=== PATIENT | female | born 1950 | race Caucasian/White ===

== ENCOUNTER 2017-07-18 23:14 | Emergency (ER) | payer OTHER, MEDICARE ==
--- OUTSIDE RECORDS SUMMARY | 2017-07-18 23:17 | XMS REPORT | Clinical Summary ---
:1950 Author Organization [facility] Address [address] [place] [address] Care Team Providers Name Role Phone Roselia Hart MD Primary Care Provider Allergies Active Allergy Reactions Severity Noted Date Comments No Known Drug Allergies 05/07/2016 Current Medications Prescription Sig. Disp. Refills Start End Status Date Date estradiol (ESTRACE) 1 Taek 1 3 Active MG tablet tablet=1 mg in 6 the morning. pqziqrkpflax-wubg-pcssk Take 1 tablet Active acid 18-400 mg-mcg by mouth every tablet morning. cholecalciferol, Take 2,000 Active vitamin D3, (VITAMIN Units by mouth D3) 2,000 unit capsule every morning. capsule buPROPion XL Take 150 mg by 2 Active (WELLBUTRIN XL) 150 MG mouth every 7 24 hr tablet morning. Patient takes a total dose of 450 mg of wellbutrin XL=1 tab of 150 mg + 1 tab of 300 mg methylphenidate Take 10 mg by Active (RITALIN) 10 MG tablet mouth 2 (two) times a day. hydroCHLOROthiazide Take 1 tablet 30 tablet 11 Active (HYDRODIURIL) 25 MG (25 mg total) 7 018 tablet by mouth daily. DULoxetine (CYMBALTA) Take 30 mg by Active 30 MG capsule mouth 2 (two) times a day. gabapentin (NEURONTIN) Take 300 mg by 1 Active 300 mg capsule mouth daily as 7 needed. amitriptyline (ELAVIL) Take 1 tablet Active 25 MG tablet (25 mg total) 8 by mouth nightly as needed. metFORMIN (GLUCOPHAGE) TAKE 1 TABLET 90 tablet 0 Active 500 mg tablet BY MOUTH EVERY 8 MORNING WITH BREAKFAST clopidogrel (PLAVIX) 75 Take 75 mg by 6 Active mg tablet mouth daily. 8 aspirin (ECOTRIN) 81 MG Take 81 mg by Active enteric coated tablet mouth daily. acetaminophen-codeine Take 1-2 40 tablet 0 Active (TYLENOL WITH CODEINE tablets by 8 018 #3) 300-30 mg per mouth every 6 tablet (six) hours as needed for moderate pain for up to 10 days. metFORMIN (GLUCOPHAGE) Take 1 2 Discontinued 500 mg tablet zvvelp=920 mg 6 017 by mouth with breakfast. amitriptyline (ELAVIL) take 1 3 Discontinued 25 MG tablet tablet=25 mg 6 017 by mouth at bedtime. escitalopram (LEXAPRO) TK 1 T PO QD 0 Discontinued 20 MG tablet 6 017 gabapentin (NEURONTIN) Take 1 0 Discontinued 300 mg capsule urxwbcn=968 mg 6 017 by mouth at bedtime as needed for neuropathy. hydroCHLOROthiazide Take 25 mg by Discontinued (HYDRODIURIL) 50 MG mouth every 6 017 tablet morning. aspirin (ECOTRIN) 81 MG Take 81 mg by Discontinued enteric coated tablet mouth every 6 017 morning. buPROPion XL Take 300 mg by Discontinued (WELLBUTRIN XL) 300 MG mouth every 6 017 24 hr tablet morning. Patient takes a total dose of 450 mg of Wellbutrin XL=1 tab of 300 mg + 1 tab of 150 mg in the morning dicyclomine (BENTYL) 20 Take 20 mg by Discontinued mg tablet mouth. 017 amitriptyline (ELAVIL) Take 100 mg by 2 Discontinued 100 MG tablet mouth nightly. 7 018 meloxicam (MOBIC) 7.5 Take 7.5 mg by 9 Discontinued mg tablet mouth daily as 7 017 needed for other. propranolol (INDERAL) Take 20 mg by 2 Discontinued 20 MG tablet mouth every 12 7 017 (twelve) hours as needed for anxiety. traMADol (ULTRAM) 50 mg Take 50 mg by 0 Discontinued tablet mouth every 6 7 017 (six) hours as needed for pain. traZODone (DESYREL) 50 Take 50 mg by 2 Discontinued MG tablet mouth nightly. 7 017 hydrOXYzine (ATARAX) 50 Take 50 mg by 2 Discontinued MG tablet mouth daily as 7 017 needed for sleep, itching or anxiety. aspirin 325 MG tablet Take 1 tablet 30 tablet 0 (325 mg total) 7 017 by mouth daily for 30 days. atorvastatin (LIPITOR) Take 1 tablet 30 tablet 0 10 MG tablet (10 mg total) 7 017 by mouth nightly for 30 days. propranolol (INDERAL) Take 1 tablet 2 Discontinued 20 MG tablet (20 mg total) 7 017 by mouth every 12 (twelve) hours as needed (anxiety). gabapentin (NEURONTIN) Take 1 capsule 0 Discontinued 300 mg capsule (300 mg total) 7 017 by mouth nightly as needed (neuropathy). aspirin 325 MG buffered Take 81 mg by Discontinued tablet mouth daily. 018 atorvastatin (LIPITOR) Take 10 mg by Discontinued 10 MG tablet mouth daily. 017 meloxicam (MOBIC) 15 mg Take 1 tablet 40 tablet 1 tabletIndications: (15 mg total) 7 017 Primary osteoarthritis by mouth daily of left knee for 30 days. Take with food gabapentin (NEURONTIN) Take 1 capsule 90 capsule 1 Discontinued 300 mg (300 mg total) 7 017 capsuleIndications: by mouth 3 Primary osteoarthritis (three) times of left knee a day. metFORMIN (GLUCOPHAGE) TAKE 1 TABLET 90 tablet 0 Discontinued 500 mg tablet BY MOUTH EVERY 7 018 MORNING WITH BREAKFAST oseltamivir (TAMIFLU) Take 1 capsule 10 capsule 0 75 MG (75 mg total) 8 018 capsuleIndications: by mouth 2 Influenza A (two) times a day for 5 days. meloxicam (MOBIC) 15 mg 1 Discontinued tablet 7 018 meloxicam (MOBIC) 15 mg Take 1 tablet 30 tablet 0 tablet (15 mg total) 8 018 by mouth daily for 30 days. acetaminophen-codeine Take 1 tablet 30 tablet 0 Discontinued (TYLENOL WITH CODEINE by mouth every 8 018 #3) 300-30 mg per 4 (four) hours tablet as needed for moderate pain for up to 30 days. Active Problems Problem Noted Date PFO (patent foramen ovale) 06/23/2017 Overview: Summary The LV endocardium is adequately visualized. The left ventricle is chamber size (by vol index) is small. Mild concentric LV hypertrophy. All of the LV segments contract normally . Global LV systolic function normal . LVEF by Hooper's method of disk assessment is normal (55-60%) . Grade 1 diastolic dysfunction (impaired relaxation and low-normal LA pressure). The right ventricular chamber size and systolic function are within normal limits. Previous Study In comparison with the prior exam on 09/27/2013 there are no significant changes. Reported PFO is still demonstrated by bubble study. Last Assessment & Plan: Will follow up with cardiology. Transient alteration of awareness 06/14/2017 Combined forms of age-related cataract of both eyes 03/28/2017 Overview: Dr. Mosqueda Last Assessment & Plan: Early, not visually significant. Follow. MRx updated. Mild dryness--can use ATs PRN, especially with computer work. 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 Minimal cognitive impairment 03/01/2017 Overview: I am concerned about patient's memory; She states she was seen by neuro and testing done however I do not have those records. Dr. Clancy. MOCA - 07/12 - Followed by Dr. Anderson - thought to be s/s to depression - seems to be improving. Follow up 11/30 Last Assessment & Plan: Will see Dr. Anderson in november. Trigger finger, right ring finger 11/07/2016 Primary osteoarthritis of left knee 11/05/2016 Overview: Followed by dr. Stockton s/p injection. Was given tylenol # 3 but she never received it. I discontinued it from the medications and told her if not needed not to take. If she needs pain meds and has any trouble she will let me know. HEBER (obstructive sleep apnea) 07/12/2016 Overview: Pt with fatigue and excessive snoring. Cards recommend sleep study - She was found to need a CPAP - she doesn't want to wear anything over her face. Repeat sleep study done in July 2016 - she did not want the machine and deferred it. Last Assessment & Plan: Refer to pulmonary to see if she can get a machine she can tolerate. Irritable bowel syndrome 06/09/2016 Overview: On Bentyl - followed by Dr. Voss Hormone replacement therapy 06/09/2016 Overview: On estrogen per Dr. Soliz - she was told she had to stay on this - Neurology after recentl hospitalization urged to stop this Last Assessment & Plan: High risk and have d/w pt and daughter that she should stop this given increased risk for VTE and her recent hospitaliazations. Abnormal EKG 06/09/2016 Overview: Seen by Dr. Costa- Stress test normal. Last Assessment & Plan: Place order for sleep study. Chronic depression 12/30/2015 Overview: Not controlled; bupropion and lexapro; has not been able to follow up with psychiatry; previous referral not placed - Seeing Dr. Prado. Lots of medication adjustments. On cymbalta and ritalin now , wellbutrin and elavil for sleep. Last Assessment & Plan: Medications cleaned up. D/W pt and daughter that need to d/w psychiatry d/c of medications that likely culprit of patient's AMS - concerned about the combination and if she has been correctly taking all her pills - Daughter will arrange and double check medications Poor short-term memory 12/30/2015 Last Assessment & Plan: She did well on MOCA and likely stress causing her memory issues. Will continue to monitor. History of TIA (transient ischemic attack) 09/26/2013 Overview: In 2013 - MRI CT scan normal; likely TIA Otherwise, unremarkable intracranial MRI and intra and extracranial MRAs. Essential hypertension 09/26/2013 Overview: Stable on hctz and metoprolol Last Assessment & Plan: Hypertension is well controlled. Migraine without status migrainosus, not intractable 09/26/2013 Overview: History of frequent migraines and previous PCP Dr. Roberts started her on elavil. She has had issues with compliance problems but we have reinforced this. 07/11 - still having ongoing issues with headaches. Occipital. When she wakes up. She blames this all on stress. Takes NSAIDs which help. Migraines are well controlled on - taking elavil daily Last Assessment & Plan: Continue on elavil 25 mg daily. Type 2 diabetes mellitus 09/26/2013 Overview: Previous A1c -6.1 - 5.9 LDL < 100 - yes - LD 71 - start back on statin Blood pressure < 130/80 - no -yes Diabetic Eye Exam: due again in June - done at [facility] ASA: yes Foot exam:per Dr. Joe Podiatry on gabapentin for neuropathy as needed Proteinuria: none Influenza: Due -utd Pneumonia : prevnar - 03/2016 Last Assessment & Plan: Diabetes is very well controlled. I am proud of her. She is very compliant with her meds. She has lost weight. She is doing much better in regards to her depression. Continue low dose metformin and will recheck kidney functions. Resolved Problems Problem Noted Date Resolved Date Primary localized osteoarthrosis of left lower leg 11/05/2016 05/24/2017 Noncompliance with treatment 12/30/2015 05/27/2017 Overview: In the past but this is mainly secondary to stress and memory issues. She has made strides to be more compliant and done well. Encounters Date Type Specialty Care Team Description 07/18/2017 Office Visit Orthopedic Surgery Helder Stockton Primary osteoarthritis of left knee (Primary Dx); MD Ricardo Acute pain of left knee 07/15/2017 Telephone Orthopedic Surgery Chani Stockton, ARTEMIO 07/12/2017 Refill Orthopedic Surgery Helder Stockton Primary MD Ricardo osteoarthritis of left knee 06/23/2017 Office Visit Internal Medicine Tanner, Hospital discharge follow-up (Primary Dx); Roselia Silveira, Transient alteration of awareness; Seizure disorder; HEBER (obstructive sleep apnea); PFO (patent foramen ovale); Chronic depression; Minimal cognitive impairment; Hormone replacement therapy; Medication management 06/15/2017 Office Visit Neurology David, Poor short-term memory ( Primary Dx); MD Iesha Chronic depression; Spells of trembling; Transient alteration of awareness 05/31/2017 Refill Internal Medicine Roselia Hart MD 05/27/2017 Lab Lab Tanner, Annual physical exam; Roselia Silveira Type 2 diabetes mellitus without complication, unspecified prison insulin use status 05/27/2017 Office Visit Internal Medicine Tanner, Annual physical exam ( Primary Dx); Roselia Silveira, Hormone replacement therapy; Chronic depression; Essential hypertension; Primary osteoarthritis of left knee; Minimal cognitive impairment; Type 2 diabetes mellitus without complication, unspecified prison insulin use status 05/24/2017 Office Visit Orthopedic Surgery Helder Stockton Primary osteoarthritis of left knee (Primary Dx); MD Ricardo Primary localized osteoarthrosis of left lower leg; Trigger finger, right ring finger 05/24/2017 Refill Orthopedic Surgery Helder Stockton MD 05/06/2017 Office Visit Internal Medicine Tanner, Body aches (Primary Dx); Roselia Silveira, Sore throat; MD Influenza A 03/28/2017 Office Visit Ophthalmology Amarjit Mosqueda Diabetes mellitus without complication (Primary Dx); MD Milly Blurry vision; Combined forms of age-related cataract of both eyes 03/28/2017 Telephone Ophthalmology Amarjit Mosqueda MD 03/01/2017 Office Visit Neurology David, Minimal cognitive MD Iesha impairment (Primary Dx) 02/23/2017 Lab Lab [facility], Type 2 diabetes Roselia Silveira, mellitus without MD complication, unspecified terminal worker insulin use status 02/23/2017 Office Visit Internal Medicine Tanner, Chronic depression ( Primary Dx); Roselia Silveira, Type 2 diabetes mellitus without complication, unspecified prison insulin use status; Blurry vision 02/17/2017 Refill Internal Medicine Roselia Hart MD 02/01/2017 Transcribe Orders Physical Therapy David, 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 (Primary Dx) 11/22/2016 Transcribe Orders Physical Therapy David, Intermittent cerebral MD Iesha ischemia (Primary Dx) 11/19/2016 Office Visit Orthopedic Surgery Helder Stockton MD osteoarthritis of left knee (Primary Dx) 11/12/2016 Office Visit Orthopedic Surgery Helder Stockton Osteoarthrosis, localized, primary, knee, left (Primary Dx); MD Ricardo Primary osteoarthritis of left knee; Primary localized osteoarthrosis of left lower leg; Primary osteoarthritis of right knee; Unilateral primary osteoarthritis, right knee 11/05/2016 Office Visit Orthopedic Surgery Helder Stockton Osteoarthrosis, localized, primary, knee, right (Primary Dx); MD Ricardo Primary osteoarthritis of left knee; Trigger finger, right ring finger 11/05/2016 Refill Orthopedic Surgery Helder Stockton Primary MD Ricardo osteoarthritis of left knee 10/20/2016 Office Visit Internal Medicine Tanner, Hospital discharge follow-up (Primary Dx); Matteo Macias specified transient cerebral ischemias; Chronic depression; Type 2 diabetes mellitus without complication, unspecified prison insulin use status 10/20/2016 Transcribe Orders Physical Therapy Matteo Hernandez 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 (Primary Dx) 09/21/2016 Transcribe Orders Physical Therapy Miguel, Cognitive deficits MD Maggie following cerebral infarction (Primary Dx) 09/20/2016 Telephone Neurology Rod No MA 09/09/2016 Transcribe Orders Sleep Medicine Bounds Obstructive sleep Paul, Irish apnea (adult) (pediatric) (Primary Dx) 09/09/2016 Telephone Internal Medicine Roselia Hart MD 08/24/2016 Office Visit Neurology Tanner, Memory changes (Primary Dx); Matteo Macias migraine without status migrainosus, not intractable; Other specified transient cerebral ischemias Iesha Hernandez MD 08/17/2016 Transcribe Orders Physical Therapy Miguel, Intermittent cerebral MD Maggie ischemia (Primary Dx) 08/14/2016 Patient Outreach Quality Sanjuana Smith, ARTEMIO 08/12/2016 - Hospital Encounter General Internal Feroz Garsia Other specified 08/14/2016 Medicine MD Tomas transient cerebral Miguel, ischemias (Primary MD Maggie Dx) 08/12/2016 Procedure Pass General Internal Medicine 08/12/2016 Telephone Access Roselia Hart MD 08/05/2016 Transcribe Orders Sleep Medicine Bounds Obstructive sleep Paul, Irish apnea (adult) (pediatric) (Primary Dx) after 07/17/2016 Immunizations Name Dates Previously Given Next Due Influenza Trivalent 01/11/2017, 01/10/2016 Pneumococcal Conjugate 13-Valent 03/11/2016 Pneumococcal Polysaccharide 01/30/2014 Tdap 04/03/2014 Zoster 01/31/2012 Family History Medical History Relation Name Comments Cancer Father Dementia Father Diabetes Father Multiple sclerosis Sister Relation Name Status Comments Father Sister Social History Tobacco Use Types Packs/Day Years Used Date Never Smoker Smokeless Tobacco: Never Used Alcohol Use Drinks/Week oz/Week Comments No Sex Assigned at Date Recorded Not on file Last Filed Vital Signs Vital Sign Reading Time Taken Blood Pressure 119/80 06/23/2017 11:43 AM CDT Pulse 86 06/23/2017 11:43 AM CDT Temperature 36.7 C (98.1 F) 05/06/2017 10:47 AM ASSOCIATION EXECUTIVE Respiratory Rate 16 06/23/2017 11:43 AM CDT Oxygen Saturation 98% 06/23/2017 11:43 AM CDT Inhaled Oxygen Concentration - - Weight 82.6 kg (182 lb) 06/23/2017 11:43 AM CDT Height 165.1 cm (5' 5") 06/23/2017 11:43 AM CDT Body Mass Index 30.29 06/23/2017 11:43 AM CDT Plan of Treatment Date Type Specialty Care Team Description 08/05/2017 Office Visit Internal Medicine Roselia Hart MD [address] [place], [place] [id number] 08/09/2017 Office Visit Orthopedic Surgery Helder Stockton MD [address] [place] [address] [phone] 09/08/2017 Office Visit Neurology Isra Fish MD [address] [place] [address] [phone] 11/25/2017 Office Visit Internal Medicine Roselia Hart MD [address] [place] [address] [phone] 03/17/2018 Office Visit Neurology Iesha Hernandez MD [address] [facility] [address] [place] [address] [phone] 03/29/2018 Office Visit Ophthalmology Amarjit Mosqueda MD [address] [place] [address] Health Maintenance Due Date Last Done Comments COLONOSCOPY 2000 INFLUENZA VACCINE 11/09/2017 01/11/2017, 01/10/2016 OPHTHALMOLOGY EXAM 03/07/2018 03/07/2017 FOOT EXAM 05/26/2018 05/26/2017, 05/26/2017 URINE MICROALBUMIN 05/27/2018 05/27/2017 MAMMOGRAM 04/11/2019 04/11/2017 ZOSTER VACCINE Completed 01/31/2012 PNEUMOCOCCAL POLYSACCHARIDE VACCINE AGE 65 Completed 01/30/2014 AND OVER PNEUMOCOCCAL-13 Completed 03/11/2016 Procedures Procedure Name Priority Date/Time Associated Diagnosis Comments RI ARTHROCENTESIS Routine 07/18/2017 1:30 Primary Results for this ASPIR&/INJ MAJOR PM CDT osteoarthritis of procedure are in JT/BURSA W/O US left knee the results Acute pain of left section. knee RI ARTHROCENTESIS Routine 05/24/2017 9:50 Primary Results for this ASPIR&/INJ MAJOR AM ASSOCIATION EXECUTIVE osteoarthritis of procedure are in JT/BURSA W/O US left knee the results section. RI ARTHROCENTESIS Routine 11/21/2016 9:21 Primary Results for this ASPIR&/INJ MAJOR AM CDT osteoarthritis of procedure are in JT/BURSA W/O US left knee the results section. RI ARTHROCENTESIS Routine 11/16/2016 9:47 Primary Results for this ASPIR&/INJ MAJOR AM CDT osteoarthritis of procedure are in JT/BURSA W/O US left knee the results section. RI ARTHROCENTESIS Routine 11/16/2016 9:47 Primary Results for this ASPIR&/INJ MAJOR AM CDT osteoarthritis of procedure are in JT/BURSA W/O US right knee the results section. RI ARTHROCENTESIS Routine 11/11/2016 7:20 Primary Results for this ASPIR&/INJ MAJOR PM CDT osteoarthritis of procedure are in JT/BURSA W/O US left knee the results section. RI ARTHROCENTESIS Routine 11/11/2016 7:20 Osteoarthrosis, Results for this ASPIR&/INJ MAJOR PM CDT localized, primary, procedure are in JT/BURSA W/O US knee, right the results Primary section. osteoarthritis of left knee GENERAL SLEEP STUDY Routine 08/16/2016 9:47 Obstructive sleep AM CDT apnea (adult) (pediatric) after 07/17/2016 Results Large Joint Arthrocentesis (07/18/2017 1:30 PM) Renay Stockton MD 07/18/20172:02 PM Large Joint Arthrocentesis Consent given by: patient Site marked: site marked Timeout: Immediately prior to procedure a time out was called to verify the correct patient, procedure, equipment, operations support representative and site/side marked as required Supporting Documentation Indications: pain Procedure Details Ultrasound guided: no Location: knee - L knee Left side: Needle size (left): 25G. Approach: anterolateral Left knee medications administered: 2 mL lidocaine 10 mg/mL (1 %); 6 mg betamethasone acetate & sodium phosphate 6 mg/mL (3 mg betamethasone acet, sod phos 3mg/ml) Patient tolerance: patient tolerated the procedure well with no immediate complications XR Knee 1 Or 2 Vw Left (07/18/2017 1:16 PM)Only the most recent of2 resultswithin the time period is included. Specimen Performing Laboratory [facility] [address] [place] [address] Narrative Moderate diffuse degenerative changes.Calcification medial femoral condyle. Microalbumin / creatinine urine ratio (05/27/2017 10:13 AM) Component Value Ref Range Creatinine, urine, random 354 (H) 20 - 320 mg/dL Comment: Results verified by repeat analysis on dilution. Microalbumin, urine 1.2 See Note: mg/dL Comment: Reference Range: Reference Range Not established Microalbumin/creatinine ratio 3 <30 mcg/mg creat Comment: The ADA defines abnormalities in albumin excretion as follows: Category Result (mcg/mg creatinine) Normal<30 Microalbuminuria 30-299 Clinical albuminuria > LZ=412 The ADA recommends that at least two of three specimens collected within a 3-6 month period be abnormal before considering a patient to be within a diagnostic category. Specimen Performing Laboratory [facility] Vitamin D 25 hydroxy level (05/27/2017 10:13 AM) Component Value Ref Range Vitamin D, 25-hydroxy 41 30 - 100 ng/mL Comment: Vitamin D Status 25-OH Vitamin D: Deficiency:<20 ng/mL Insufficiency: 20 - 29 ng/mL Optimal: > or=30 ng/mL For 25-OH Vitamin D testing on patients on D2-supplementation and patients for whom quantitation of D2 and D3 fractions is required, the QuestAssureD(TM) 25-OH VIT D, (D2,D3), LC/MS/MS is recommended: order code 00319 (patients >2yrs). For more information on this test, go to: http://education.[employer]/faq/EVE726 (This link is being provided for informational/educational purposes only.) Specimen Performing Laboratory [facility] CBC with platelet and differential (05/27/2017 10:13 AM)Only the most recent of2 resultswithin the time period is included. Component Value Ref Range WBC 5.2 3.8 - 10.8 Thousand/uL RBC 4.41 3.80 - 5.10 Million/uL HGB 12.5 11.7 - 15.5 g/dL HCT 39.3 35.0 - 45.0 % MCV 89.1 80.0 - 100.0 fL MCH 28.3 27.0 - 33.0 pg MCHC 31.8 (L) 32.0 - 36.0 g/dL RDW 12.6 11.0 - 15.0 % Platelet count 259 140 - 400 Thousand/uL MPV 11.7 7.5 - 12.5 fL Neutrophils, absolute 2,413 1,500 - 7,800 cells/uL Lymphocytes, absolute 2,122 850 - 3,900 cells/uL Monocytes, absolute 546 200 - 950 cells/uL Eosinophils, absolute 88 15 - 500 cells/uL Basophils, absolute 31 0 - 200 cells/uL Neutrophils 46.4 % Lymphocytes 40.8 % Monocytes 10.5 % Eosinophils 1.7 % Basophils + RC 0.6 % Specimen Performing Laboratory [facility] Thyroid stimulating hormone (05/27/2017 10:13 AM)Only the most recent of2 resultswithin the time period is included. Component Value Ref Range TSH 1.04 0.40 - 4.50 mIU/L Specimen Performing Laboratory [facility] T4, free (05/27/2017 10:13 AM) Component Value Ref Range T4, free 1.2 0.8 - 1.8 ng/dL Specimen Performing Laboratory [facility] Magnesium level (05/27/2017 10:13 AM) Component Value Ref Range Magnesium 2.2 1.5 - 2.5 mg/dL Specimen Performing Laboratory [facility] Hemoglobin A1c (05/27/2017 10:13 AM)Only the most recent of3 resultswithin the time period is included. Component Value Ref Range Hemoglobin A1C 5.9 (H) <5.7 % of total Hgb Comment: For someone without known diabetes, a hemoglobin A1c value between 5.7% and 6.4% is consistent with prediabetes and should be confirmed with a follow-up test. For someone with known diabetes, a value <7% indicates that their diabetes is well controlled. A1c targets should be individualized based on duration of diabetes, age, comorbid conditions, and other considerations. This assay result is consistent with an increased risk of diabetes. Currently, no consensus exists regarding use of hemoglobin A1c for diagnosis of diabetes for children. Specimen Performing Laboratory [facility] Lipid panel (05/27/2017 10:13 AM)Only the most recent of2 resultswithin the time period is included. Component Value Ref Range Cholesterol, total 144 <200 mg/dL HDL cholesterol 75 >50 mg/dL Triglycerides 82 <150 mg/dL LDL cholesterol calculated 53 mg/dL (calc) Comment: Reference range: <100 Desirable range <100 mg/dL for patients with CHD or diabetes and <70 mg/dL for diabetic patients with known heart disease. LDL-C is now calculated using the Anastacio-Guillaume calculation, which is a validated novel method providing better accuracy than the Friedewald equation in the estimation of LDL-C. Anastacio SS et al. HARRISON. 2013;310(19): 6335-3530 (http://education.[employer]/faq/ZAY891) Cholesterol/HDL ratio 1.9 <5.0 (calc) Non-HDL cholesterol 69 <130 mg/dL (calc) Comment: For patients with diabetes plus 1 major ASCVD risk factor, treating to a non-HDL-C goal of <100 mg/dL (LDL-C of <70 mg/dL) is considered a therapeutic option. Specimen Performing Laboratory Blood [facility] Comprehensive metabolic panel (05/27/2017 10:13 AM)Only the most recent of3 resultswithin the time period is included. Component Value Ref Range Glucose 122 (H) 65 - 99 mg/dL Comment: Fasting reference interval For someone without known diabetes, a glucose value between 100 and 125 mg/dL is consistent with prediabetes and should be confirmed with a follow-up test. BUN, whole blood 17 7 - 25 mg/dL Creatinine 0.84 0.50 - 0.99 mg/dL Comment: For patients >49 years of age, the reference limit for Creatinine is approximately 13% higher for people identified as -Fijian. EGFR Non-Afr. Fijian 72 > OR=60 mL/min/1.73m2 EGFR 83 > OR=60 mL/min/1.73m2 BUN/creatinine ratio NOT APPLICABLE 6 - 22 (calc) Sodium 141 135 - 146 mmol/L Potassium 4.4 3.5 - 5.3 mmol/L Chloride 107 98 - 110 mmol/L CO2 27 20 - 31 mmol/L Calcium 9.0 8.6 - 10.4 mg/dL Protein 6.3 6.1 - 8.1 g/dL Albumin, S 4.2 3.6 - 5.1 g/dL Globulin, total 2.1 1.9 - 3.7 g/dL (calc) Albumin/globulin ratio 2.0 1.0 - 2.5 (calc) Total bilirubin 0.3 0.2 - 1.2 mg/dL Alkaline phosphatase 46 33 - 130 U/L AST 16 10 - 35 U/L ALT 17 6 - 29 U/L Specimen Performing Laboratory Blood [facility] Large Joint Arthrocentesis (05/24/2017 9:50 AM) Renay Stockton MD 05/24/2017 10:37 AM Large Joint Arthrocentesis Consent given by: patient Site marked: site marked Timeout: Immediately prior to procedure a time out was called to verify the correct patient, procedure, equipment, operations support representative and site/side marked as required Supporting Documentation Indications: pain Procedure Details Ultrasound guided: no Location: knee - L knee Left side: Needle size (left): 25G. Approach: anterolateral Left knee medications administered: 2 mL lidocaine 10 mg/mL (1 %); 6 mg betamethasone acetate & sodium phosphate 6 mg/mL (3 mg betamethasone acet, sod phos 3mg/ml) Patient tolerance: patient tolerated the procedure well with no immediate complications POC Influenza A/B (05/06/2017 10:49 AM) Component Value Ref Range Rapid Influenza A Ag POS Rapid Influenza B Ag NEG Specimen Performing Laboratory Swab Vitamin B1 level, whole blood (03/05/2017 10:00 AM) Component Value Ref Range Vitamin B1, whole blood 247 (H) 78 - 185 nmol/L Comment: Vitamin supplementation within 24 hours prior to blood draw may affect the accuracy of results. This test was developed and its analytical performance characteristics have been determined by [employer] [facility]. It has not been cleared or approved by FDA. This assay has been validated pursuant to the CLIA regulations and is used for clinical purposes. Specimen Performing Laboratory Blood [facility] Narrative FASTING:NO FASTING: NO Vitamin B12 level (03/05/2017 10:00 AM) Component Value Ref Range Vitamin B12 475 200 - 1,100 pg/mL Specimen Performing Laboratory Blood [facility] Narrative FASTING:NO FASTING: NO Large Joint Arthrocentesis (11/21/2016 9:21 AM) Renay Stockton MD 11/21/20169:21 AM Large Joint Arthrocentesis Consent given by: patient Supporting Documentation Indications: pain Procedure Details Ultrasound guided: no Location: knee - L knee Left side: Needle size: 22 G Approach: anterolateral Left knee medications administered: 3 mL lidocaine 10 mg/mL (1 %); 2 mL sodium hyaluronate (viscosup) 30 mg/2 mL Patient tolerance: patient tolerated the procedure well with no immediate complications Large Joint Arthrocentesis (11/16/2016 9:47 AM) Renay Stockton MD :47 AM Large Joint Arthrocentesis Procedure Details Ultrasound guided: no Platelet Rich Plasma Used: no PRP UsedLocation: knee - L knee Left side: Needle size: 22 G Left knee medications administered: 2 mL sodium hyaluronate (viscosup) 30 mg/2 mL; 2 mL lidocaine 10 mg/mL (1 %) Patient tolerance: patient tolerated the procedure well with no immediate complications Large Joint Arthrocentesis (11/16/2016 9:47 AM) Renay Stockton MD 11/16/20169:47 AM Large Joint Arthrocentesis Consent given by: patient Supporting Documentation Indications: pain Procedure Details Ultrasound guided: no Location: knee - R knee Right side: Needle size: 22 G Approach: anterolateral Right knee medications administered: 3 mL lidocaine 10 mg/mL (1 %); 6 mg betamethasone acetate & sodium phosphate 6 mg/mL Patient tolerance: patient tolerated the procedure well with no immediate complications Large Joint Arthrocentesis (11/11/2016 7:20 PM) Renay Stockton MD 11/11/20167:20 PM Large Joint Arthrocentesis Consent given by: patient Supporting Documentation Indications: pain Procedure Details Ultrasound guided: no Location: knee - L knee Left side: Needle size: 22 G Approach: anterolateral Left knee medications administered: 3 mL lidocaine 10 mg/mL (1 %); 2 mL sodium hyaluronate (viscosup) 30 mg/2 mL Patient tolerance: patient tolerated the procedure well with no immediate complications Large Joint Arthrocentesis (11/11/2016 7:20 PM) Renay Stockton MD 11/11/20167:20 PM Large Joint Arthrocentesis Consent given by: patient Supporting Documentation Indications: pain Procedure Details Ultrasound guided: no Location: knee - R knee Right side: Needle size (right): 25G. Approach: anterolateral Right knee medications administered: 2 mL lidocaine 10 mg/mL (1 %); 3 mg betamethasone acet,sod phos 6 mg/mL (3mg betamethasone acet, sod phos 3mg/ml) Patient tolerance: patient tolerated the procedure well with no immediate complications General sleep study (08/16/2016 9:47 AM)POC glucose (08/14/2016 6:19 AM)Only the most recent of5 resultswithin the time period is included. Component Value Ref Range POC glucose 105 (H) 65 - 99 mg/dL Comment: Meter ID: [id number] Lab Support Tech: Satya Campos Specimen Performing Laboratory [facility] DEPARTMENT OF PATHOLOGY AND GENOMIC MEDICINE [address] [place] [address] ECG 12 lead (08/13/2016 9:38 PM)Only the most recent of2 resultswithin the time period is included. Component Value Ref Range Ventricular rate 80 Atrial rate 80 RI interval 132 QRSD interval 76 QT interval 390 QTC interval 449 P axis 1 36 QRS axis 1 14 T wave axis 65 EKG impression Normal sinus rhythm-Normal ECG-In automated comparison with ECG of 12-AUG-2016 11:24,-No significant change was found- Specimen Performing Laboratory [facility] [address] [id number] [place] carotid duplex (08/13/2016 10:44 AM) Component Value Ref Range L CCA Prox 27.6 cm/s L CCA Prox 91.8 cm/s L ECA Prox 12.0 cm/s L ECA Prox 82.3 cm/s R ECA Prox 8.9 cm/s L ICA Prox 15.3 cm/s L ICA Prox 44.3 cm/s R ICA Prox 33.5 cm/s R ICA Prox 96.9 cm/s L ICA/CCA Ratio 1 R ICA/CCA Ratio 0.8 L CCA Max 91.80 cm/s R CCA Max 121.00 cm/s L ICA Max 91.90 cm/s R ICA Max 69.90 cm/s R CCA Prox 29.9 cm/s R CCA Prox 106.8 cm/s R ICA Dist 30.9 cm/s L ICA Dist 35.4 cm/s L ICA DIST 88.6 cm/s R Car Bulb 30.60 cm/s R CCA Dist 45.1 cm/s R CCA Dist 121 cm/s R Vert Art 19.70 cm/s L Car Bulb 17.60 cm/s L Car Bulb 91.90 cm/s R Car Bulb 6.00 cm/s L CCA Dist 18.8 cm/s L CCA Dist 75.4 cm/s R ECA Prox 71.00 cm/s R ICA Dist 64.6 cm/s L Vert Art 20.80 cm/s L Vert Art 58.3 cm/s R Vert Art 50.40 cm/s Specimen Performing Laboratory [facility] [address] [place] [address] Narrative Bilateral carotid arteries were patent without stenosis. MRI Brain Wo Contrast (08/12/2016 7:22 PM) Specimen Performing Laboratory [facility] [address] [place] [address] Narrative EXAMINATION: MRI BRAIN WO CONTRAST COMPARISON: None CLINICAL HISTORY Speech difficultiesdifficulty with balance . TECHNIQUE: Multiplanar multisequence examination was performed without contrast. FINDINGS: There is no definite evidence of diffusion restriction. The ventricular system and subarachnoid spaces are within normal limits for the patient's age. There are minimal chronic microvascular ischemic site in the centrum semiovale bilaterally. There is no acute hemorrhage or chronic hemosiderin deposition. There is no extra-axial mass or fluid collection. There is an enlarged empty sella turcica. IMPRESSION: Mild involutional changes. No focal acute abnormalities noted. [facility]-[id number] Procedure Note Hm Interface, Radiology Results Incoming - 08/12/2016 7:35 PM CDT EXAMINATION: MRI BRAIN WO CONTRAST COMPARISON: None CLINICAL HISTORY Speech difficulties difficulty with balance . TECHNIQUE: Multiplanar multisequence examination was performed without contrast. FINDINGS: There is no definite evidence of diffusion restriction. The ventricular system and subarachnoid spaces are within normal limits for the patient's age. There are minimal chronic microvascular ischemic site in the centrum semiovale bilaterally. There is no acute hemorrhage or chronic hemosiderin deposition. There is no extra-axial mass or fluid collection. There is an enlarged empty sella turcica. IMPRESSION: Mild involutional changes. No focal acute abnormalities noted. [facility]-[id number] ECG ED Preliminary Interpretation - NOT AN ORDER (08/12/2016 4:17 PM) Renay Garsia MD 08/12/20164:17 PM ECG ED Preliminary Interpretation - Not an Order Performed by: FEROZ GARSIA Authorized by: FEROZ GARSIA Rate: ECG rate:106 ECG rate assessment: tachycardic Rhythm: Rhythm: sinus rhythm Ectopy: Ectopy: none QRS: QRS axis:Normal Conduction: Conduction: normal ST segments: ST segments:Normal Urinalysis screen and microscopy, with reflex to culture (08/12/2016 1:03 PM) Component Value Ref Range Specimen site Clean catch Color, UA Yellow Appearance, UA Clear Specific gravity, UA 1.010 1.001 - 1.035 pH, UA 5.0 5.0 - 8.5 Protein, UA Negative Negative Glucose, UA Negative Negative Ketones, UA Negative Negative Bilirubin, UA Negative Negative Blood, UA Negative Negative Nitrite, UA Negative Negative Urobilinogen, UA Negative <2.0 Leukocyte esterase, UA Negative Negative Epithelial cells, UA Moderate /HPF WBC, UA 0-5 0 - 4 /HPF RBC, UA 0-5 0 - 2 /HPF Bacteria, UA None seen None seen Yeast, UA None seen Yeast with pseudohyphae, UA None seen Specimen Performing Laboratory Urine [facility] DEPARTMENT OF PATHOLOGY AND GENOMIC MEDICINE [address] [place] [address] Urine culture (08/12/2016 1:03 PM) Component Value Ref Range Urine culture SEE COMMENTComment: Bacteriuria screen negative. Specimen Performing Laboratory Urine [facility] [address] [place] [address] Estimated GFR (08/12/2016 11:35 AM) Component Value Ref Range GFR Non Af Amer 55 (A) mL/min/1.73 m2 GFR Af Amer 67 mL/min/1.73 m2 Comment: Chronic kidney disease: <60 mL/min/1.73m2 Kidney failure: <15 mL/min/1.73m2 The estimated GFR is calculated from the IDMS-traceable Modification of Diet in Renal Disease Equation. The accuracy of the calculation is poor when the creatinine is normal. Calculated values >90 mL/min/1.73m2 are not reported. This equation has not been validated in children (<18 years), women, the elderly (>70 years), or ethnic groups other than Caucasians and Americans. Specimen Performing Laboratory Plasma specimen [facility] [address] [place] [address] Troponin (08/12/2016 11:35 AM) Component Value Ref Range Troponin <0.300 0.000 - 0.300 ng/mL Comment: 0.30 - 1.49 ng/mlMay indicate increased risk of acute coronary syndrome. >=1.5 ng/mlConsistent with acute myocardial infarction. The diagnostic value of a single normal or non-diagnostic result is questionable.Serial samples at 2-6 hour intervals are required to rule out acute myocardial injury. Specimen Performing Laboratory Plasma specimen [facility] [address] [place] [address] Partial thromboplastin time, activated (08/12/2016 11:35 AM) Component Value Ref Range PTT 29.6 23.0 - 36.0 sec Comment: PTT therapeutic range for unfractionated heparin is 61.0-112.0 seconds which corresponds to Anti-Xa 0.3-0.7 U/ml. Specimen Performing Laboratory Blood [facility] [id number] [place] [address] [place] [address] Prothrombin time with INR (08/12/2016 11:35 AM) Component Value Ref Range Prothrombin time 12.4 12.0 - 15.0 sec INR 0.9 Comment: The International Normalized Ratio (INR) is a therapeutic monitoring tool for patients who are stable on oral anticoagulant therapy. An INR of 2.0-3.0 is suggested for deep vein thrombosis/pulmonary embolism. Specimen Performing Laboratory Blood [facility] DEPARTMENT OF PATHOLOGY AND GENOMIC MEDICINE [address] [place] [address] Bedside glucose (08/12/2016 11:23 AM) Component Value Ref Range POC glucose 103 Specimen Performing Laboratory Blood CT Stroke Brain Wo Contrast (08/12/2016 11:20 AM) Specimen Performing Laboratory [facility] [address] [place] [address] Narrative EXAMINATION:CT STROKE BRAIN WO CONTRAST CLINICAL HISTORY:STROKE COMPARISON:None. TECHNIQUE: Noncontrast head CT performed using radiation dose reduction techniques.Technical factors are evaluated and adjusted to ensure appropriate moderation of exposure.Automated dose management technology is applied to adjust radiation exposure while achieving a diagnostic quality image. FINDINGS: The brain appears unremarkable with no evidence of hemorrhage, mass lesion, or midline shift. Vidal-white matter differentiation is preserved with no evidence of acute territorial infarction. Partially empty sella is noted. Ventricles and sulci are age-appropriate in size and configuration. There is no extra-axial fluid collection. Visualized paranasal sinuses and mastoid air cells are clear. Bones, orbits, and soft tissues are unremarkable. IMPRESSION: Partially empty sella of uncertain clinical significance. Otherwise, unremarkable head CT with no evidence of acute territorial infarction, hemorrhage, or mass lesion. Findings were discussed with Dr. Garsia on 08/12/2016 11:24 AM, and he verbalized understanding of the report. [facility]-[id number] Procedure Note [facility], Radiology Results Incoming - 08/12/2016 11:30 AM CDT EXAMINATION: CT STROKE BRAIN WO CONTRAST CLINICAL HISTORY: STROKE COMPARISON: None. TECHNIQUE: Noncontrast head CT performed using radiation dose reduction techniques. Technical factors are evaluated and adjusted to ensure appropriate moderation of exposure. Automated dose management technology is applied to adjust radiation exposure while achieving a diagnostic quality image. FINDINGS: The brain appears unremarkable with no evidence of hemorrhage, mass lesion, or midline shift. Vidal-white matter differentiation is preserved with no evidence of acute territorial infarction. Partially empty sella is noted. Ventricles and sulci are age-appropriate in size and configuration. There is no extra-axial fluid collection. Visualized paranasal sinuses and mastoid air cells are clear. Bones, orbits, and soft tissues are unremarkable. IMPRESSION: Partially empty sella of uncertain clinical significance. Otherwise, unremarkable head CT with no evidence of acute territorial infarction, hemorrhage, or mass lesion. Findings were discussed with Dr. Garsia on 08/12/2016 11:24 AM, and he verbalized understanding of the report. [facility]-[id number] after 07/17/2016 Insurance Payer Benefit Plan / Group Subscriber ID Type Phone Address MEDICARE MEDICARE PART A AND B xxxxxxxxxx Medicare [place], [place] AAR AARP SUPPLEMENT xxxxxxxxx-xx Commercial Home: [address] [phone] [place], [place] [phone]
--- OUTSIDE RECORDS SUMMARY | 2017-07-18 23:17 | XMS REPORT ---
:1950 [facility] Address [address] [place] [address] [address] [place] [address] Care Team Providers Name Role Phone FLORA KOENIG Unavailable Unavailable Problems This patient has no known problems. Allergies, Adverse Reactions, Alerts This patient has no known allergies or adverse reactions. Medications This patient has no known medications. Results Test Description Test Time Test Comments Text Results Atomic Results Result Comments POCT-GLUCOSE METER 2017-06-13 17:46:00 Test Item Value Reference Range Comments POC-GLUCOSE METER (BEAKER) (test 144 mg/dL 70-110 TESTED AT [facility] [address] [facility] aflx=[id number]) [facility] [address] EEG AWAKE AND [id number] 16:04:00Reason for exam:->To loof for any epileptiform discharges.DATE OF TEST: 06/13/17 DATE OF REPORT 06/13/17 ACC: [id number] Start time: 1503pm Stop time: 1524pm ICD-10: R56.9 CPT Code : 54347 HISTORY: 67 yo F w/ occasional episodes of confusion s/p tPA for suspected CVA, imaging revealed no CVA. MEDICATIONS that could affect EEG: none TECHNICAL SUMMARY: This is a digital EEG study using the standard International 10-20 system for placement of 22 electrodes, including eye movement leads, and an EKG lead. DESCRIPTION OF RECORD: During the maximally alert state a poorly regulated 9-10 Hz posterior dominant rhythm was seen that was symmetric and reactive to eye opening. Diffuse excess beta activity is observed. Drowsiness was characterized by alpha attenuation and increased frontocentral theta, vertex sharp transients and POSTS.The bulk of this EEG captured stage 2 sleep, characterized by symmetric sleep spindles and K- complexes with symmetric background slowing. HV: Hyperventilation was not performed. PHOTIC STIMULATION: Flash stimulation was not done. IMPRESSION: Normal Awake and Asleep EEG CLINICAL CORRELATION: An EEG without epileptiform discharges does not exclude the possibility of epilepsy. If the clinical suspicion of epilepsy remains, consider additional EEG recordings. Marsha Fish M.D. Neurophysiology Fellow Rosy Au [facility] Epilepsy/ Neurophysiology Attending POCT-GLUCOSE [id number] 12:26:00 Test Item Value Reference Range Comments POC-GLUCOSE METER (BEAKER) 87 mg/dL 70-110 TESTED AT [facility] [address] [place] [address] (test wdzo=6722) [facility] [address] MR, BRAIN, WITHOUT [id number] 12:06:00Reason for exam:->Ischemic Stroke EvaluationFINAL REPORT MRI brain without contrast 06/13/2017 12:02 PM CLINICAL INDICATION: StrokeIschemic Stroke Evaluation TECHNIQUE: Multiplanar, multisequence MR imaging of the brain was performed utilizing the following imaging sequences: Axial T1, T2, FLAIR, GRE, and DWI; sagittal and coronal T1-weighted images. COMPARISON: 09/26/2013 FINDINGS: There is no acute infarct, hematoma, mass, extra-axial collection, or hydrocephalus. There is arteriosclerosis in the saúl. Normal appearing flow-voids are present in the major intracranial vascular structures. The sellar and pineal regions, craniocervical junction, orbits, face, and skull base are without worrisome finding. IMPRESSION: Unremarkable noncontrast examination. Signed: Venkat Last Verified Date/Time: 06/13/2017 12:06:05 Reading Location: [address] Neuro Reading Room CREATINE KINASE (CK), TOTAL AND [id number] 09:34:00 Test Item Value Reference Range Comments CREATINE KINASE TOTAL (BEAKER) (test nagq=938) 85 U/L 29-200 CREATINE KINASE-MB (BEAKER) (test enpm=229) 0.9 ng/mL 0.0-6.6 CREATINE KINASE-MB INDEX (BEAKER) (test hocl=291) 1.1 % CK-MB Reference Range:<6.7 Normal6.7-10.0 Borderline>10.0 AbnormalTROPONIN [id number] 09:34:00 Test Item Value Reference Range Comments TROPONIN I (BEAKER) (test jcvt=294) < ng/mL 0.00-0.03 Troponin I (TnI) levels must be interpreted in the context of the presenting symptoms and the clinical findings. Elevated TnI levels indicate myocardial damage, but are not specific for ischemic heart disease. Elevated TnI levels are seen in patients with other cardiac conditions (including myocarditis and congestive heart failure), and slight TnI elevations occur in patients with other conditions, including sepsis, renal failure, acidosis, acute neurological disease, and persistent tachyarrhythmia.POCT-GLUCOSE [id number] 09:11:00 Test Item Value Reference Range Comments POC-GLUCOSE METER (BEAKER) 206 mg/dL 70-110 TESTED AT [facility] [address] [facility] (test jpqt=3758) [facility] [address] LIPID [id number] 04:23:00 Test Item Value Reference Range Comments TRIGLYCERIDES (BEAKER) (test qrru=256) 110 mg/dL CHOLESTEROL (BEAKER) (test qbfs=025) 137 mg/dL HDL CHOLESTEROL (BEAKER) (test lszj=204) 56 mg/dL LDL CHOLESTEROL CALCULATED (BEAKER) (test 59 mg/dL ciby=568) Triglyceride Reference Range: Low Risk <150 Borderline 150- 199 High Risk 200-499 Very High Risk >=500Cholesterol Reference Range: Low Risk <200 Borderline 200-239 High Risk > 240HDL Cholesterol Reference Range: Low Risk >=60 High Risk <40LDL Cholesterol Reference Range: Optimal <100 Near Optimal 100-129 Borderline 130-159 High 160-189 Very High >=190 FastingBASIC METABOLIC [id number] 04:23:00 Test Item Value Reference Range Comments SODIUM (BEAKER) (test 137 meq/L 136-145 fkaz=887) POTASSIUM (BEAKER) (test 4.4 meq/L 3.5-5.1 ogsg=473) CHLORIDE (BEAKER) (test 104 meq/L 98-107 ixgg=536) CO2 (BEAKER) (test 25 meq/L 22-29 jios=037) BLOOD UREA NITROGEN 16 mg/dL 7-21 (BEAKER) (test rsws=242) CREATININE (BEAKER) (test 0.91 mg/dL 0.57-1.25 nzyw=311) GLUCOSE RANDOM (BEAKER) 96 mg/dL 70-105 (test edri=598) CALCIUM (BEAKER) (test 8.7 mg/dL 8.4-10.2 sntk=776) EGFR (BEAKER) (test 75 mL/min/1.73 sq m ESTIMATED GFR IS NOT xhxb=0713) ACCURATE CREATININE CLEARANCE IN PREDICTING GLOMERULAR FILTRATION RATE. ESTIMATED GFR IS NOT APPLICABLE FOR DIALYSIS PATIENTS. [id number] 04:02:00 Test Item Value Reference Range Comments RPR SCREEN (BEAKER) (test dnav=657) Nonreactive Nonreactive CBC W/PLT COUNT & AUTO [id number] 03:57:00 Test Item Value Reference Range Comments WHITE BLOOD CELL COUNT (BEAKER) (test zrwa=359) 6.1 K/ L 3.5-10.5 RED BLOOD CELL COUNT (BEAKER) (test tkdi=773) 4.12 M/ L 3.93-5.22 HEMOGLOBIN (BEAKER) (test vcpt=949) 12.1 GM/DL 11.2-15.7 HEMATOCRIT (BEAKER) (test ppyw=647) 37.2 % 34.1-44.9 MEAN CORPUSCULAR VOLUME (BEAKER) (test kfee=184) 90.3 fL 79.4-94.8 MEAN CORPUSCULAR HEMOGLOBIN (BEAKER) (test 29.4 pg 25.6-32.2 palq=550) MEAN CORPUSCULAR HEMOGLOBIN CONC (BEAKER) (test 32.5 GM/DL 32.2-35.5 orzt=263) RED CELL DISTRIBUTION WIDTH (BEAKER) (test 12.9 % 11.7-14.4 wrev=744) PLATELET COUNT (BEAKER) (test cyxv=120) 222 K/CU MM 150-450 MEAN PLATELET VOLUME (BEAKER) (test tlog=080) 10.8 fL 9.4-12.3 NUCLEATED RED BLOOD CELLS (BEAKER) (test 0 /100 WBC 0-0 bnoq=911) NEUTROPHILS RELATIVE PERCENT (BEAKER) (test 48 % vxyp=898) LYMPHOCYTES RELATIVE PERCENT (BEAKER) (test 39 % psjw=141) MONOCYTES RELATIVE PERCENT (BEAKER) (test 10 % aupy=612) EOSINOPHILS RELATIVE PERCENT (BEAKER) (test 2 % lkzq=518) BASOPHILS RELATIVE PERCENT (BEAKER) (test 1 % cotg=517) NEUTROPHILS ABSOLUTE COUNT (BEAKER) (test 2.91 K/ L 1.56-6.13 nkwb=139) LYMPHOCYTES ABSOLUTE COUNT (BEAKER) (test 2.39 K/ L 1.18-3.74 lizl=226) MONOCYTES ABSOLUTE COUNT (BEAKER) (test 0.63 K/ L 0.24-0.36 alld=751) EOSINOPHILS ABSOLUTE COUNT (BEAKER) (test 0.11 K/ L 0.04-0.36 mckn=121) BASOPHILS ABSOLUTE COUNT (BEAKER) (test 0.04 K/ L 0.01-0.08 hxnz=910) IMMATURE GRANULOCYTES-RELATIVE PERCENT (BEAKER) 0 % 0-1 (test vdav=3295) CREATINE KINASE (CK), TOTAL AND [id number] 00:24:00 Test Item Value Reference Range Comments CREATINE KINASE TOTAL (BEAKER) (test gwhf=275) 93 U/L 29-200 CREATINE KINASE-MB (BEAKER) (test lwxw=371) 1.3 ng/mL 0.0-6.6 CREATINE KINASE-MB INDEX (BEAKER) (test qksh=358) 1.4 % CK-MB Reference Range:<6.7 Normal6.7-10.0 Borderline>10.0 AbnormalTROPONIN [id number] 00:24:00 Test Item Value Reference Range Comments TROPONIN I (BEAKER) (test fzka=004) 0.01 ng/mL 0.00-0.03 Troponin I (TnI) levels must be interpreted in the context of the presenting symptoms and the clinical findings. Elevated TnI levels indicate myocardial damage, but are not specific for ischemic heart disease. Elevated TnI levels are seen in patients with other cardiac conditions (including myocarditis and congestive heart failure), and slight TnI elevations occur in patients with other conditions, including sepsis, renal failure, acidosis, acute neurological disease, and persistent tachyarrhythmia.HEMOGLOBIN [id number] 22:46:00 Test Item Value Reference Range Comments HEMOGLOBIN A1C (BEAKER) (test hcmu=482) 5.6 % 4.3-6.1 POCT-GLUCOSE [id number] 22:24:00 Test Item Value Reference Range Comments POC-GLUCOSE METER (BEAKER) 108 mg/dL 70-110 TESTED AT [facility] [address] (test tiwa=2026) [facility] [address] TSH/FREE T4 IF [id number] 20:53:00 Test Item Value Reference Range Comments THYROID STIMULATING HORMONE (BEAKER) (test 1.76 uIU/mL 0.35-4.94 kcip=586) VITAMIN B12 AND [id number] 20:53:00 Test Item Value Reference Range Comments VITAMIN B12 (BEAKER) (test dezm=162) 537 pg/mL 213-816 FOLATE (BEAKER) (test supx=168) 15.9 ng/mL >=7.0 URINALYSIS W/ [id number] 20:45:00 Test Item Value Reference Range Comments COLOR (BEAKER) (test kczv=356) Light Yellow CLARITY (BEAKER) (test wtol=752) Clear SPECIFIC GRAVITY UA (BEAKER) (test rmtf=199) 1.050 1.001-1.035 PH UA (BEAKER) (test njku=251) 5.5 5.0-8.0 PROTEIN UA (BEAKER) (test wxuv=978) 10 mg/dL Negative GLUCOSE UA (BEAKER) (test jejm=605) Negative Negative KETONES UA (BEAKER) (test muxy=274) Negative Negative BILIRUBIN UA (BEAKER) (test pecx=465) Negative Negative BLOOD UA (BEAKER) (test vyuo=571) Moderate Negative NITRITE UA (BEAKER) (test zhnc=029) Negative Negative LEUKOCYTE ESTERASE UA (BEAKER) (test bywv=511) Moderate Negative UROBILINOGEN UA (BEAKER) (test qqoa=229) 0.2 mg/dL 0.2-1.0 RBC UA (BEAKER) (test tsdm=485) 29 /HPF WBC UA (BEAKER) (test ijju=202) 12 /HPF SOURCE(BEAKER) (test cftz=7788) Urine, Mcintyre RAPID DRUG SCREEN, [id number] 20:18:00 Test Item Value Reference Range Comments BARBITURATE URINE (BEAKER) (test zblg=098) Negative Negative BENZODIAZEPINE SCREEN URINE (BEAKER) (test Negative Negative xgxw=968) COCAINE (METAB.) SCREEN (BEAKER) (test vivf=4919) Negative Negative METHADONE SCREEN (BEAKER) (test gmji=6012) Negative Negative OPIATE SCREEN URINE (BEAKER) (test rdev=069) Negative Negative CANNABINOID SCREEN URINE (BEAKER) (test czfu=686) Negative Negative AMPH/METHAMPH SCREEN (BEAKER) (test wupa=5735) Negative Negative PHENCYCLIDINE SCREEN URINE (BEAKER) (test flpp=094) Negative Negative OXYCODONE SCREEN URINE (BEAKER) (test wkti=0778) Negative Negative DRUG CUTOFF CONC.Cocaine 300 ng/mL Cannabinoid 50 ng/mL Benzodiazepine 200 ng/mLBarbiturate 200 ng/ mLPhencyclidine 25 ng/mLOpiate 300 ng/mLMethadone 300 ng/mLAmphetamine/ 1000 ng/mL MethamphetamineOxycodone 300 ng/mLThis assay provides an unconfirmed qualitative test result for the clinical management of patients in emergency situations. Chain of custody not maintained. Some tbeq-agr-qqelays medications, as well as adulterants, may cause inaccurate results. Clinical correlation should be applied. A more comprehensive drug screen or confirmation of a detected drug may be performed upon request.HEPATIC FUNCTION [id number] 20:18:00 Test Item Value Reference Range Comments TOTAL PROTEIN (BEAKER) (test yvwo=603) 7.0 gm/dL 6.0-8.3 ALBUMIN (BEAKER) (test abik=9609) 4.0 g/dL 3.5-5.0 BILIRUBIN TOTAL (BEAKER) (test olui=793) 0.3 mg/dL 0.2-1.2 BILIRUBIN DIRECT (BEAKER) (test vvuy=489) 0.2 mg/dL 0.1-0.5 ALKALINE PHOSPHATASE (BEAKER) (test mire=473) 50 U/L 40-150 AST (SGOT) (BEAKER) (test vtuu=756) 23 U/L 5-34 ALT (SGPT) (BEAKER) (test vygv=990) 16 U/L 6-55 BASIC METABOLIC [id number] 20:18:00 Test Item Value Reference Range Comments SODIUM (BEAKER) (test 139 meq/L 136-145 kxrg=230) POTASSIUM (BEAKER) (test 4.0 meq/L 3.5-5.1 wzvd=752) CHLORIDE (BEAKER) (test 103 meq/L 98-107 fpwx=151) CO2 (BEAKER) (test 26 meq/L 22-29 hccb=706) BLOOD UREA NITROGEN 13 mg/dL 7-21 (BEAKER) (test qwrl=481) CREATININE (BEAKER) (test 0.81 mg/dL 0.57-1.25 jhjm=525) GLUCOSE RANDOM (BEAKER) 86 mg/dL 70-105 (test okmj=166) CALCIUM (BEAKER) (test 9.5 mg/dL 8.4-10.2 onmk=734) EGFR (BEAKER) (test 85 mL/min/1.73 sq m ESTIMATED GFR IS NOT vklg=8072) ACCURATE CREATININE CLEARANCE IN PREDICTING GLOMERULAR FILTRATION RATE. ESTIMATED GFR IS NOT APPLICABLE FOR DIALYSIS PATIENTS. [id number] 20:03:00 Test Item Value Reference Range Comments PROTIME (BEAKER) (test ktlt=327) 13.9 seconds 11.7-14.7 INR (BEAKER) (test ikdg=132) 1.1 <=5.9 PARTIAL THROMBOPLASTIN TIME (BEAKER) (test 28.7 seconds 22.5-36.0 axlc=110) RECOMMENDED COUMADIN/WARFARIN INR THERAPY RANGESSTANDARD DOSE: 2.0 - 3.0 Includes: PROPHYLAXIS forvenous thrombosis, systemic embolization; TREATMENT for venous thrombosis and/or pulmonary embolus.HIGH RISK: Target INR is 2.5-3.5 for patients with mechanical heart valves.PROTHROMBIN [id number] 20:02: 00 Test Item Value Reference Range Comments PROTIME (BEAKER) (test ztup=276) 13.9 seconds 11.7-14.7 INR (BEAKER) (test elcj=463) 1.1 <=5.9 RECOMMENDED COUMADIN/WARFARIN INR THERAPY RANGESSTANDARD DOSE: 2.0 - 3.0 Includes: PROPHYLAXIS forvenous thrombosis, systemic embolization; TREATMENT for venous thrombosis and/or pulmonary embolus.HIGH RISK: Target INR is 2.5-3.5 for patients with mechanical heart valves.CBC W/PLT COUNT & AUTO [id number] 19:53:00 Test Item Value Reference Range Comments WHITE BLOOD CELL COUNT (BEAKER) (test rzpy=510) 7.0 K/ L 3.5-10.5 RED BLOOD CELL COUNT (BEAKER) (test waij=404) 4.65 M/ L 3.93-5.22 HEMOGLOBIN (BEAKER) (test gbep=171) 13.7 GM/DL 11.2-15.7 HEMATOCRIT (BEAKER) (test xtqi=246) 42.0 % 34.1-44.9 MEAN CORPUSCULAR VOLUME (BEAKER) (test czdo=715) 90.3 fL 79.4-94.8 MEAN CORPUSCULAR HEMOGLOBIN (BEAKER) (test 29.5 pg 25.6-32.2 wifl=054) MEAN CORPUSCULAR HEMOGLOBIN CONC (BEAKER) (test 32.6 GM/DL 32.2-35.5 vwfq=661) RED CELL DISTRIBUTION WIDTH (BEAKER) (test 13.0 % 11.7-14.4 wkcs=533) PLATELET COUNT (BEAKER) (test olrt=941) 242 K/CU MM 150-450 MEAN PLATELET VOLUME (BEAKER) (test qfvz=660) 11.0 fL 9.4-12.3 NUCLEATED RED BLOOD CELLS (BEAKER) (test 0 /100 WBC 0-0 zvmr=589) NEUTROPHILS RELATIVE PERCENT (BEAKER) (test 53 % ciqn=393) LYMPHOCYTES RELATIVE PERCENT (BEAKER) (test 37 % ysxi=854) MONOCYTES RELATIVE PERCENT (BEAKER) (test 8 % avmg=528) EOSINOPHILS RELATIVE PERCENT (BEAKER) (test 1 % gnqs=539) BASOPHILS RELATIVE PERCENT (BEAKER) (test 0 % gxzv=051) NEUTROPHILS ABSOLUTE COUNT (BEAKER) (test 3.71 K/ L 1.56-6.13 zztb=743) LYMPHOCYTES ABSOLUTE COUNT (BEAKER) (test 2.62 K/ L 1.18-3.74 fxeh=336) MONOCYTES ABSOLUTE COUNT (BEAKER) (test 0.54 K/ L 0.24-0.36 reyl=551) EOSINOPHILS ABSOLUTE COUNT (BEAKER) (test 0.10 K/ L 0.04-0.36 nkkj=251) BASOPHILS ABSOLUTE COUNT (BEAKER) (test 0.02 K/ L 0.01-0.08 dxlc=574) IMMATURE GRANULOCYTES-RELATIVE PERCENT (BEAKER) 0 % 0-1 (test nbda=9876) VANI, SHASHI [id number] 17:32:00FINAL REPORT CT angiogram of the upper chest, neck, and head Comparison: MRI and MRA September 26, 2013 Reason for exam: Stroke Discussion: Multiple axial CT images of the upperchest, neck, and head were obtained using CT angiography technique. 2-D and 3-D reconstructed images were provided. 3D MIP images were generated. NASCET criteria are utilized when considering stenosis. Please note that CTA is inherently insensitive in evaluating the cavernous and skullbase portionsof the internal carotid arteries because of adjacent bone and venous opacification. Dose modulation,iterative reconstruction, and/or weight based adjustment of the mA/kV was utilized to reduce the radiation dose to as low as reasonably achievable. Unenhanced head CT with no specific evidence of acute abnormality. While I see no definitive acute large vessel infarction, please note that CT is not sensitive in detecting or distinguishing acute ischemic disease. There is normal flow in tortuous upper chest aortic branches. Normal flow in the cervical segment vertebral arteries which are generally small in caliber. Normal flow cervical carotid systems with no stenosis by NASCET criteria. Normal flow intracranial internal carotid arteries and in the carotid terminus branches proximally both sides. Normal vertebrobasilar and proximal posterior cerebral artery flow. There is a prominent left posterior communicator and a somewhat small vertebrobasilar system. Impressions: Negative CTA upper chest, neck, head. Signed: Alis Thayer Verified Date/Time: 06/12/2017 17:32: 09 Reading Location: [address] Neuro Reading Room CT, CAROTID, [id number] 17:32 :00FINAL REPORT CT angiogram of the upper chest, neck, and head Comparison: MRI and MRA September 26, 2013 Reason for exam: Stroke Discussion: Multiple axial CT images of the upperchest, neck, and head were obtained using CT angiography technique. 2-D and 3-D reconstructed images were provided. 3D MIP images were generated. NASCET criteria are utilized when considering stenosis. Please note that CTA is inherently insensitive in evaluating the cavernous and skullbase portionsof the internal carotid arteries because of adjacent bone and venous opacification. Dose modulation,iterative reconstruction, and/or weight based adjustment of the mA/kV was utilized to reduce the radiation dose to as low as reasonably achievable. Unenhanced head CT with no specific evidence of acute abnormality. While I see no definitive acute large vessel infarction, please note that CT is not sensitive in detecting or distinguishing acute ischemic disease. There is normal flow in tortuous upper chest aortic branches. Normal flow in the cervical segment vertebral arteries which are generally small in caliber. Normal flow cervical carotid systems with no stenosis by NASCET criteria. Normal flow intracranial internal carotid arteries and in the carotid terminus branches proximally both sides. Normal vertebrobasilar and proximal posterior cerebral artery flow. There is a prominent left posterior communicator and a somewhat small vertebrobasilar system. Impressions: Negative CTA upper chest, neck, head. Signed: Alis Thayereport Verified Date/Time: 06/12/2017 17:32:09 Reading Location: [address] Neuro Reading Room [id number] 16:46:00 Test Item Value Reference Range Comments POC-CREATININE (BEAKER) 1.0 mg/dL 0.6-1.3 TESTED AT [facility] [address] [facility] (test yhcp=0834) [facility] [address] POC-EGFR (BEAKER) (test 67 mL/min/1.73M2 ehap=8770)
--- OUTSIDE RECORDS SUMMARY | 2017-07-18 23:17 | XMS REPORT | Clinical Summary ---
:1950 Author Organization [facility] Address [address] [place] [address] Phone Care Team Providers Name Role Phone Unavailable Primary Care Provider Unavailable Allergies Active Allergy Reactions Severity Noted Date Comments Omeprazole Nausea Only 10/09/2015 Current Medications Prescription Sig. Disp. Refills Start End Date Status Date dicyclomine (BENTYL) 20 Take 20 mg Active mg tablet by mouth every 6 (six) hours. cholecalciferol, vitamin Take by Active D3, 2,000 unit Cap mouth daily. escitalopram oxalate Take 1 90 tablet 1 Active (LEXAPRO) 20 MG tablet (20 6 tabletIndications: Other mg total) by depression mouth daily. hydrochlorothiazide Take 0.5 90 tablet 4 Active (HYDRODIURIL) 50 MG tablets (25 6 tabletIndications: mg total) by Essential hypertension mouth daily. with goal blood pressure less than 130/85 metFORMIN (GLUCOPHAGE) Take 1 90 tablet 3 Active 500 MG tablet (500 6 tabletIndications: Type mg total) by 2 diabetes mellitus mouth daily without complication with (HCC) breakfast. amitriptyline (ELAVIL) TAKE 1 90 tablet 3 Active 25 MG tablet TABLET BY 6 MOUTH EVERY NIGHT AT BEDTIME MULTIVITAMIN/IRON/FOLIC Take 1 Active ACID (CENTRUM ULTRA tablet by WOMEN'S ORAL) mouth daily. buPROPion (WELLBUTRIN Take 1 30 tablet 0 Active XL) 300 MG 24 hr tablet tablet (300 7 mg total) by mouth daily. estradiol (ESTRACE) 1 MG Take 1 mg by 12/06/201 03/05/20 Discontinued tablet mouth daily. 4 18 aspirin 81 MG EC tablet Take 1 150 tablet 2 03/10/20 tablet (81 6 17 mg total) by mouth daily. Active Problems Problem Noted Date Transient alteration of awareness 06/14/2017 Tension headache 12/30/2015 Memory loss, short term 12/30/2015 Chronic depression 12/30/2015 Personal history of noncompliance with medical treatment, presenting 2015 hazards to health Vitamin D deficiency 05/24/2014 Type 2 diabetes mellitus without complication (HCC) 09/26/2013 HTN (hypertension) 09/26/2013 Cerebral infarction (HCC) 09/26/2013 Overview: In 2013 - MRI CT scan normal; likely TIA Otherwise, unremarkable intracranial MRI and intra and extracranial MRAs. Migraines 09/26/2013 Overview: UPDATED BY ICD10 SNOMED/IMO UPDATES Peptic ulcer disease Overview: Keiko Rowell S/P gastrectomy Overview: secondary to PUD. Dr. Britt. H/O colonoscopy Overview: Normal colonoscopy --> Due again in 2022. Irritable bowel syndrome Overview: On Bentyl Encounters Date Type Specialty Care Team Description 06/12/2017 - Hospital Encounter Intensive Care Amarjit Hernandez Acute ischemic stroke 06/13/2017 MD Farhana ([facility]);Received tissue plasminogen activator (t-PA) less than 24 hours prior to arrival after 07/17/2016 Immunizations Name Dates Previously Given Next Due Influenza TIV (IM) 01/10/2016 Pneumococcal Polysaccharide (Pneumovax) 01/30/2014 SHINGLES VARICELLA (ZOSTAVAX) ZOSTER 01/31/2012 Tdap 04/03/2014 Family History Medical History Relation Name Comments Aneurysm Father Dementia Father Stroke Father Stroke in his 90s Relation Name Status Comments Daughter Alive Father Alive Mother Alive Sister Alive Sister Alive Sister Alive Social History Tobacco Use Types Packs/Day Years Used Date Never Smoker Smokeless Tobacco: Never Used Tobacco Cessation: Counseling Given: Yes Alcohol Use Drinks/Week oz/Week Comments Yes seldom once a year Sex Assigned at Date Recorded Not on file Last Filed Vital Signs Vital Sign Reading Time Taken Blood Pressure 114/67 06/13/2017 5:00 PM [facility] Pulse 84 06/13/2017 5:00 PM [facility] Temperature 36.7 C (98 F) 06/13/2017 4:00 PM [facility] Respiratory Rate 18 06/13/2017 5:00 PM [facility] Oxygen Saturation 97% 06/13/2017 5:00 PM [facility] Inhaled Oxygen Concentration - - Weight 79.5 kg (175 lb 4.3 oz) 06/12/2017 3:15 PM [facility] Height 165.1 cm (5' 5") 06/13/2017 2:33 PM [facility] Body Mass Index 29.17 06/12/2017 3:15 PM [facility] Plan of Treatment Health Maintenance Due Date Last Done Comments INFLUENZA VACCINE 01/09/2018 Results RHYTHM STRIP - SCAN (06/15/2017 12:30 PM)POC-Glucose meter (06/13/2017 5:30 PM) Only the most recent of4 resultswithin the time period is included. Component Value Ref Range POC-Glucose Meter 144 (H)Comment: TESTED AT [address] 70 - 110 mg/[place] [address] Specimen Performing Laboratory Blood [facility] [address] [address] ECHOCARDIOGRAM REPORT - SCAN (06/13/2017 4:20 PM)EEG AWAKE AND DROWSY (2017 3:41 PM) Specimen Performing Laboratory [facility] Narrative DATE OF TEST: 06/13/17 DATE OF REPORT 06/13/17 ACC: [id number] Start time: 1503pm Stop time: 1524pm ICD-10: R56.9 CPT Code: 85771 HISTORY: 67 yo F w/ occasional episodes [...] bulk of this EEG captured stage 2 sleep,characterized by symmetric sleep spindles and K-complexes with symmetric background slowing. HV: Hyperventilation was not performed. PHOTIC STIMULATION: Flash stimulation was not done. IMPRESSION: Normal Awake and Asleep EEG CLINICAL CORRELATION: An EEG without epileptiform discharges does not exclude the possibility of epilepsy. If the clinical suspicion of epilepsy remains, consider additional EEG recordings. Marsha Fish M.D. Neurophysiology Fellow [facility] Epilepsy/Neurophysiology Attending Procedure Note Interface, External Ris In - 06/13/2017 4:04 PM [facility] M[facility]ER DATE OF TEST: 06/13/17 DATE OF REPORT 06/13/17 ACC: [id number] Start time: 1503pm Stop time: 1524pm ICD-10: R56.9 CPT Code: 76058 HISTORY: 67 yo F w/ occasional episodes [...] sleep, characterized by symmetric sleep spindles and K-complexes with symmetric background slowing. HV: Hyperventilation was not performed. PHOTIC STIMULATION: Flash stimulation was not done. IMPRESSION: Normal Awake and Asleep EEG CLINICAL CORRELATION: An EEG without epileptiform discharges does not exclude the possibility of epilepsy. If the clinical suspicion of epilepsy remains, consider additional EEG recordings. Marsha Fish M.D. Neurophysiology Fellow [facility] Epilepsy/Neurophysiology Attending 2D Echo W/Doppler(CW/PW/Color) with saline (06/13/2017 12:15 PM) Component Value Ref Range Ejection Fraction Specimen Performing Laboratory [facility] ECHO HEARTLAB MKCKESSON CPACS Narrative Transthoracic Echocardiography Report (TTE) Demographics Patient Name GARCÍA,Date of Study06/13 FAULSTINE [id number] Gender Female Visit Number [id number] Race Unknown [id number] Number [id number] Number Date of Birth1950 Referring PhysicianAmarjit Rodgersfelicia Lopezl Age67 year(s) SonographerOscar Antonio, [facility] AnalystAriadnaInterpreting Meredith ChriserasPhysicijasmyne CAMERON Procedure Type of Study TTE procedure:2DECHO W DOPPLER(CW/PW/COLOR) (Routine) Indications:Stroke . Clinical History DIABETES, H/O COLONOSCOPY, IRRITABLE BOWEL SYNDROME HGB 12.1 HCT 37.2 % Contrast Medium: Bubble Study. Height: 65 inches Weight: 79.38 kg (175 lbs) BSA: 1.87 m^2 BMI: 29.12 kg/m^2 HR: 80 bpm BP: 117/68 mmHg Summary The LV endocardium is adequately visualized. [...] PFO is still demonstrated by bubble study. Signature Findings Left Ventricle The LV endocardium is adequately visualized. The left ventricle is chamber size (by vol index) is small. Mild concentric LV hypertrophy. All of the LV segments contract normally . Global LV systolic function normal . LVEF by Hooper's method of disk assessment is normal (55-60%) . Grade 1 diastolic dysfunction (impaired relaxation and low-normal LA pressure). Left AtriumLA size is normal (16-34 ml/m2) . Right VentricleThe right ventricular chamber size and systolic function are within normal limits. Right Atrium RA size is normal. Atrial SeptumIV saline contrast injection demostrates a PFO (patent foramen ovale) at rest and post Valsalva . Aortic Valve Mild AoV cusp thickening. Mild AoV cusp calcification. Mild aortic regurgitation. PHT 510 ms. Mitral Valve Mild MV leaflet thickening. Tricuspid ValveTV structure is normal. Mild tricuspid regurgitation. Pulmonic Valve Normal PV structure and function. AortaAortic root size (SInus of Valsalva diameter) is normal . Proximal ascending aorta size is normal . PericardiumA small pericardial effusion is present . IVC/SVC/PA/PV/PleuralThe estimated RA pressure by IVC dynamics 0-5mmHg . An IVC catheter is visualized . Chambers/Structures Left Atrium LA Dimension: 3.24 cmLA Area: 16.65 cm^2 LA Volume: 52.47 ml LA Vol. Index: 28 ml/m^2 Left Ventricle LVIDd: 2.95 cm LVIDs: 0.89 cm LV Septum Diastolic: 1.22 cm LV PW Diastolic: 1.26 cmLV FS: 69.8 % LVEDV Hooper's:40.98 ml LVESV Hooper's:14.77 mlLVEDVI: 22 ml/ m^2 LVEF Hooper's: 64 %LVESVI: 8 ml/m^2 LVOT Diameter: 2 cm Right Atrium RA Vol. (Sngl Plane): 19.1 ml Aorta Ao Root S of Lily.: 2.86 cmAscending Aorta: 2.72 cm Doppler/Quantitative Measurements Mitral Valve MV Peak E-Wave: 0.57 m/sMV Peak A-Wave: 0.82 m/s E/ A Ratio: 0.7 Peak Gradient: 1.32 mmHg Deceleration Time: 262.1 msec MV Saturnino. Peak: Tissue Doppler E' Lateral Velocity: 0.06 m/s E/E': 9.42 Aortic Valve AR P1/2t: 523 msec LVOT Peak Velocity: 1.24 m/s Peak Gradient: 6.12 mmHg Mean Velocity: 0.76 m/s Mean Gradient: 2.71 mmHg LVOT Diameter: 2 cm LVOT VTI: 21.65 cm LVOT Area: 3.14 cm^2LVOT SV:67.98 ml LVOT CO: 5.44 l/min LVOT CI: 2.91 l/min/m^2 RVOT RVOT VTI (PW): 15.55 cm Tricuspid Valve TR Velocity: 2.49 m/s TR Gradient: 24.71 mmHg Procedure Note Interface, External Ris In - 06/13/2017 3:44 PM [facility]ER Transthoracic Echocardiography Report (TTE) Demographics Patient Name GARCÍA, Date of Study 06/13/2017 [place] Gender Female Visit Number [id number] Race Unknown Room Number [id number] Number Date of 1950 Referring Physician Amarjit Ocasio Age 67 year(s) [employer] Spray Supervisor Leroy Alvarez, [facility] Lease Analyst Mary Interpreting Lior Chris Physician Procedure Type of Study TTE procedure:2DECHO W DOPPLER(CW/PW/COLOR) (Routine) Indications:Stroke . Clinical History DIABETES, H/O COLONOSCOPY, IRRITABLE BOWEL SYNDROME HGB 12.1 HCT 37.2 % Contrast Medium: Bubble Study. Height: 65 inches Weight: 79.38 kg (175 lbs) BSA: 1.87 m^2 BMI: 29.12 kg/m^2 HR: 80 bpm BP: 117/68 mmHg Summary The LV endocardium is adequately visualized. [...] PFO is still demonstrated by bubble study. Signature Findings Left Ventricle The LV endocardium is adequately visualized. The left ventricle is chamber size (by vol index) is small. Mild concentric LV hypertrophy. All of the LV segments contract normally . Global LV systolic function normal . LVEF by Hooper's method of disk assessment is normal (55-60%) . Grade 1 diastolic dysfunction (impaired relaxation and low-normal LA pressure). Left Atrium LA size is normal (16-34 ml/m2) . Right Ventricle The right ventricular chamber size and systolic function are within normal limits. Right Atrium RA size is normal. Atrial Septum IV saline contrast injection demostrates a PFO (patent foramen ovale) at rest and post Valsalva . Aortic Valve Mild AoV cusp thickening. Mild AoV cusp calcification. Mild aortic regurgitation. PHT 510 ms. Mitral Valve Mild MV leaflet thickening. Tricuspid Valve TV structure is normal. Mild tricuspid regurgitation. Pulmonic Valve Normal PV structure and function. Aorta Aortic root size (SInus of Valsalva diameter) is normal . Proximal ascending aorta size is normal . Pericardium A small pericardial effusion is present . IVC/SVC/PA/PV/Pleural The estimated RA pressure by IVC dynamics 0-5mmHg . An IVC catheter is visualized . Chambers/Structures Left Atrium LA Dimension: 3.24 cm LA Area: 16.65 cm^2 LA Volume: 52.47 ml LA Vol. Index: 28 ml/m^2 Left Ventricle LVIDd: 2.95 cm LVIDs: 0.89 cm LV Septum Diastolic: 1.22 cm LV PW Diastolic: 1.26 cm LV FS: 69.8 % LVEDV Hooper's:40.98 ml LVESV Hooper's:14.77 ml LVEDVI: 22 ml/m^2 LVEF Hooper's: 64 % LVESVI: 8 ml/m^2 LVOT Diameter: 2 cm Right Atrium RA Vol. (Sngl Plane): 19.1 ml Aorta Ao Root S of Lily.: 2.86 cm Ascending Aorta: 2.72 cm Doppler/Quantitative Measurements Mitral Valve MV Peak E-Wave: 0.57 m/s MV Peak A-Wave: 0.82 m/s E/A Ratio: 0.7 Peak Gradient: 1.32 mmHg Deceleration Time: 262.1 msec MV Saturnino. Peak: Tissue Doppler E' Lateral Velocity: 0.06 m/s E/E': 9.42 Aortic Valve AR P1/2t: 523 msec LVOT Peak Velocity: 1.24 m/s Peak Gradient: 6.12 mmHg Mean Velocity: 0.76 m/s Mean Gradient: 2.71 mmHg LVOT Diameter: 2 cm LVOT VTI: 21.65 cm LVOT Area: 3.14 cm^2 LVOT SV:67.98 ml LVOT CO: 5.44 l/min LVOT CI: 2.91 l/min/m^2 RVOT RVOT VTI (PW): 15.55 cm Tricuspid Valve TR Velocity: 2.49 m/s TR Gradient: 24.71 mmHg MR brain without IV contrast (06/13/2017 11:55 AM) Specimen Performing Laboratory [facility] Narrative FINAL REPORT MRI brain without contrast 06/13/2017 12:02 PM CLINICAL INDICATION: Stroke Ischemic Stroke Evaluation TECHNIQUE: Multiplanar, multisequence MR imaging [...] finding. IMPRESSION: Unremarkable noncontrast examination. Signed: Venkat Frazier MD Report Verified Date/Time:06/13/2017 12:06:05 Reading Location: [address] Neuro Reading Room Procedure Note Interface, External Ris In - 06/13/2017 12:08 PM DRINK [facility]ER FINAL REPORT MRI brain without contrast 06/13/2017 12:02 PM CLINICAL INDICATION: Stroke Ischemic Stroke Evaluation TECHNIQUE: Multiplanar, multisequence MR imaging [...] finding. IMPRESSION: Unremarkable noncontrast examination. Signed: Venkat Frazier MD Report Verified Date/Time: 06/13/2017 12:06:05 Reading Location: [address] Neuro Reading Room Troponin I (06/13/2017 8:22 AM)Only the most recent of2 resultswithin the time period is included. Component Value Ref Range Troponin I <0.01 0.00 - 0.03 ng/mL Specimen [place] [address] Narrative Troponin I (TnI) levels must be interpreted [...] failure, acidosis, acute neurological disease, and persistent tachyarrhythmia. Creatine Kinase (CK), Total and MB (06/13/2017 8:22 AM)Only the most recent of2 resultswithin the time period is included. Component Value Ref Range Total CK 85 29 - 200 U/L CK-MB 0.9 0.0 - 6.6 ng/mL MB Relative Index 1.1 % Specimen [place] [address] Narrative CK-MB Reference Range: <6.7Normal 6.7-10.0Borderline >10.0 Abnormal CBC with platelet count + automated diff (06/13/2017 3:47 AM)Only the most recent of2 resultswithin the time period is included. Component Value Ref Range WBC 6.1 3.5 - 10.5 K/L RBC 4.12 3.93 - 5.22 M/L Hemoglobin 12.1 11.2 - 15.7 GM/DL Hematocrit 37.2 34.1 - 44.9 % MCV 90.3 79.4 - 94.8 fL MCH 29.4 25.6 - 32.2 pg MCHC 32.5 32.2 - 35.5 GM/DL RDW 12.9 11.7 - 14.4 % Platelets 222 150 - 450 K/CU MM MPV 10.8 9.4 - 12.3 fL nRBC 0 0 - 0 /100 WBC % Neutros 48 % % Lymphs 39 % % Monos 10 % % Eos 2 % % Baso 1 % # Neutros 2.91 1.56 - 6.13 K/L # Lymphs 2.39 1.18 - 3.74 K/L # Monos 0.63 (H) 0.24 - 0.36 K/L # Eos 0.11 0.04 - 0.36 K/L # Baso 0.04 0.01 - 0.08 K/L Immature Granulocytes-Relative 0 0 - 1 % Specimen Performing Laboratory Blood - Line, [facility] [address] [address] CBC with platelet count + automated diff (06/13/2017 3:47 AM)Only the most recent of2 resultswithin the time period is included. Specimen Performing Laboratory Blood Narrative The following orders were created for panel order CBC with platelet count + automated diff. Procedure Abnormality Status --------- ------ CBC with platelet count ...[[id number]]AbnormalFinal result Please view results for these tests on the individual orders. Fasting lipid panel (06/13/2017 3:47 AM) Component Value Ref Range Triglycerides 110 mg/dL Cholesterol 137 mg/dL HDL 56 mg/dL LDL Calculated 59 mg/dL Specimen Performing Laboratory Blood - Line, [facility] [address] [address] Narrative Triglyceride Reference Range: Low Risk <150 [id number] High Risk 200-499 Very High Risk>=500 Cholesterol Reference Range: Low Risk <200 [id number] High Risk>240 HDL Cholesterol Reference Range: Low Risk >=60 High Risk <40 LDL Cholesterol Reference Range: Optimal<100 Near [id number] Ljerxdwaow278-608 Ljhu310-540 Very High >=190 Fasting Basic Metabolic Panel (06/13/2017 3:47 AM)Only the most recent of2 resultswithin the time period is included. Component Value Ref Range Sodium 137 136 - 145 meq/L Potassium 4.4 3.5 - 5.1 meq/L Chloride 104 98 - 107 meq/L CO2 25 22 - 29 meq/L BUN 16 7 - 21 mg/dL Creatinine 0.91 0.57 - 1.25 mg/dL Glucose 96 70 - 105 mg/dL Calcium 8.7 8.4 - 10.2 mg/dL EGFR 75Comment: ESTIMATED GFR IS NOT ACCURATE mL/min/1.73 sq m CREATININE CLEARANCE IN PREDICTING GLOMERULAR FILTRATION RATE. ESTIMATED GFR IS NOT APPLICABLE FOR DIALYSIS PATIENTS. Specimen Performing Laboratory Blood - Line, [facility] [address] [address] Narrative Fasting Rapid drug screen, urine (06/12/2017 7:42 PM) Component Value Ref Range Barbiturate Screen Negative Negative Benzodiazepine Screen Negative Negative Cocaine (Metab.) Screen Negative Negative Methadone Screen Negative Negative Opiate Screen Negative Negative Cannabinoid Screen Negative Negative Amph/Methamph Screen Negative Negative Phencyclidine Screen Negative Negative Oxycodone Screen Negative Negative Specimen Performing Laboratory Urine - Urine, [place] [address] [address] Narrative DRUGCUTOFF CONC. Cocaine 300 ng/mL Evfnegxwvll73 ng/mL Sghkquzsiwziry994 ng/mL Barbiturate 200 ng/mL Cnvtarelwfwyw34 ng/mL Broepv720 ng/mL Methadone 300 ng/mL Amphetamine/ 1000 ng/mL Methamphetamine Oxycodone 300 ng/mL This assay provides an unconfirmed qualitative test result for the clinical management of patients in emergency situations. Chain of custody not maintained. Some hrao-qan-szynsde medications, as well as adulterants, may cause inaccurate results. Clinical correlation should be applied. A more comprehensive drug screen or confirmation of a detected drug may be performed upon request. Urinalysis w/ Microscopic (06/12/2017 7:42 PM) Component Value Ref Range Color, UA Light Yellow Clarity, UA Clear Specific Newcomb, UA 1.050 (H) 1.001 - 1.035 pH, UA 5.5 5.0 - 8.0 Protein, UA 10 mg/dL (A) Negative Glucose, UA Negative Negative Ketones, UA Negative Negative Bilirubin, UA Negative Negative Blood, UA Moderate (A) Negative Nitrite, UA Negative Negative Leukocytes, UA Moderate (A) Negative Urobilinogen, UA 0.2 0.2 - 1.0 mg/dL RBC, UA 29 /HPF WBC, UA 12 /HPF Specimen Source Urine, [place] Specimen Performing Laboratory Urine - Urine, [place] [address] [address] Vitamin B12 and Folate (06/12/2017 7:38 PM) Component Value Ref Range Vitamin B12 537 213 - 816 pg/mL Folate 15.9 >=7.0 ng/mL Specimen Performing Laboratory Blood - Line, [address] [address] TSH/Free T4 If Indicated (06/12/2017 7:38 PM) Component Value Ref Range TSH 1.76 0.35 - 4.94 uIU/mL Specimen Performing Laboratory Blood - Line, [address] [address] PT/aPTT (06/12/2017 7:38 PM) Component Value Ref Range Protime 13.9 11.7 - 14.7 seconds INR 1.1 <=5.9 PTT 28.7 22.5 - 36.0 seconds Specimen Performing Laboratory Blood - Line, [address] [address] Narrative RECOMMENDED COUMADIN/WARFARIN INR THERAPY RANGES STANDARD DOSE: 2.0 - 3.0 Includes: PROPHYLAXIS for venous thrombosis, systemic embolization; TREATMENT for venous thrombosis and/or pulmonary embolus. HIGH RISK: Target INR is 2.5-3.5 for patients with mechanical heart valves. RPR (06/12/2017 7:38 PM) Component Value Ref Range RPR Nonreactive Nonreactive Specimen Performing Laboratory Blood - Line, [address] [address] Prothrombin time/INR (06/12/2017 7:38 PM) Component Value Ref Range Protime 13.9 11.7 - 14.7 seconds INR 1.1 <=5.9 Specimen Performing Laboratory Blood - Line, [facility] [address] [address] Narrative RECOMMENDED COUMADIN/WARFARIN INR THERAPY RANGES STANDARD DOSE: 2.0 - 3.0 Includes: PROPHYLAXIS for venous thrombosis, systemic embolization; TREATMENT for venous thrombosis and/or pulmonary embolus. HIGH RISK: Target INR is 2.5-3.5 for patients with mechanical heart valves. Hemoglobin A1c (06/12/2017 7:38 PM) Component Value Ref Range Hemoglobin A1C 5.6 4.3 - 6.1 % Specimen Performing Laboratory Blood - Line, [facility] [address] [address] Hepatic function panel (06/12/2017 7:38 PM) Component Value Ref Range Protein, Total 7.0 6.0 - 8.3 gm/dL Albumin 4.0 3.5 - 5.0 g/dL Total Bilirubin 0.3 0.2 - 1.2 mg/dL Bilirubin, Direct 0.2 0.1 - 0.5 mg/dL Alkaline Phosphatase 50 40 - 150 U/L AST 23 5 - 34 U/L ALT 16 6 - 55 U/L Specimen Performing Laboratory Blood - Line, [facility] [address] [address] CTA carotid (06/12/2017 5:00 PM) Specimen Performing Laboratory [facility] Narrative FINAL REPORT CT angiogram of the upper chest, neck, and head Comparison:MRI and MRA September 26, 2013 Reason for exam: Stroke Discussion: Multiple axial CT images of the upper chest, neck, and head were obtained using CT angiography technique. 2-D and 3-D reconstructed images were provided.3D MIPimages were generated. NASCET criteria are utilized when considering stenosis. Please note that CTA is inherently insensitive in evaluating the cavernous and skullbase portions of the internal carotid arteries because of adjacent bone and venous opacification. Dose modulation, iterative reconstruction, and/or weight based adjustment of the [...] upper chest, neck, head. Signed: Alis Thayer MD Report Verified Date/Time:06/12/2017 17:32:09 Reading Location: [address] Neuro Reading Room Procedure Note Interface, External Ris In - 06/12/2017 5:34 PM DRINK MIXER FINAL REPORT CT angiogram of the upper chest, neck, and head Comparison: MRI and MRA September 26, 2013 Reason for exam: Stroke Discussion: Multiple axial CT images of the upper chest, neck, and head were obtained using CT angiography technique. 2-D and 3-D reconstructed images were provided. 3D MIP images were generated. NASCET criteria are utilized when considering stenosis. Please note that CTA is inherently insensitive in evaluating the cavernous and skullbase portions of the internal carotid arteries because of adjacent bone and venous opacification. Dose modulation, iterative reconstruction, and/or weight based adjustment of the [...] upper chest, neck, head. Signed: Alis Thayer MD Report Verified Date/Time: 06/12/2017 17:32:09 Reading Location: [facility] Neuro Reading Room brain (06/12/2017 5:00 PM) Specimen Performing Laboratory [facility] Narrative FINAL REPORT CT angiogram of the upper chest, neck, and head Comparison:MRI and MRA September 26, 2013 Reason for exam: Stroke Discussion: Multiple axial CT images of the upper chest, neck, and head were obtained using CT angiography technique. 2-D and 3-D reconstructed images were provided.3D MIPimages were generated. NASCET criteria are utilized when considering stenosis. Please note that CTA is inherently insensitive in evaluating the cavernous and skullbase portions of the internal carotid arteries because of adjacent bone and venous opacification. Dose modulation, iterative reconstruction, and/or weight based adjustment of the [...] upper chest, neck, head. Signed: Alis Thayer MD Report Verified Date/Time:06/12/2017 17:32:09 Reading Location: [facility] Neuro Reading Room Procedure Note Interface, External Ris In - 06/12/2017 5:34 PM DRINK MIXER FINAL REPORT CT angiogram of the upper chest, neck, and head Comparison: MRI and MRA September 26, 2013 Reason for exam: Stroke Discussion: Multiple axial CT images of the upper chest, neck, and head were obtained using CT angiography technique. 2-D and 3-D reconstructed images were provided. 3D MIP images were generated. NASCET criteria are utilized when considering stenosis. Please note that CTA is inherently insensitive in evaluating the cavernous and skullbase portions of the internal carotid arteries because of adjacent bone and venous opacification. Dose modulation, iterative reconstruction, and/or weight based adjustment of the [...] upper chest, neck, head. Signed: Alis Thayer MD Report Verified Date/Time: 06/12/2017 17:32:09 Reading Location: [facility] Neuro Reading Room -Creatinine (06/12/2017 4:43 PM) Component Value Ref Range POC-Creatinine 1.0Comment: TESTED AT [address] 0.6 - 1.3 mg/dL [address] POC-EGFR 67 mL/min/1.73M2 Specimen Performing Laboratory Blood [facility] [address] [address] after 07/17/2016
[2017-07-18] MEDS ORDERED: INSULIN -REGULAR HUMAN 50 UNIT/0.5 ML ML ONE (23:50)
[2017-07-18] MEDS ORDERED: NA CHLORIDE 0.9% 1,000 ML ONE (23:50)
[2017-07-19 00:08] LABS: Hematocrit 39.2 % (36.0-45.0); MCH 28.8 pg (27.0-35.0); MCV 90.1 fL (80-100); MPV 10.3 fL (7.6-11.3); RBC Red Blood Cell Count 4.35 M/uL (3.86-4.86)
[2017-07-19 00:19] LABS: Potassium 4.8 mEq/L (3.6-5.0)
[2017-07-19 00:22] LABS: Bilirubin Total 0.4 mg/dL (0.3-1.2)
--- NOTE | 2017-07-19 00:36 | ER ---
Nurse's Notes [facility] Name: Ny García Age: 67 yrs Sex: Female : 1950 Arrival Date: 07/18/2017 Time: 23:15 Bed 15 Private MD: Diagnosis: Hyperglycemia, unspecified Presentation: 07/18 23:30 Presenting complaint: Patient states: States going to doctor and receiving Cortisol lp1 shot for chronic pain to knee, aware of possible increased in glucose; family states at home, patient's glucose continued to increase to 598; Patient denies any pain, discomfort, "just thirsty". Transition of care: patient was not received from another setting of care. Onset of symptoms was July 18, 2017. Care prior to arrival: None. 23:30 Method Of Arrival: Wheelchair lp1 23:30 Acuity: VARUN 3 lp1 Historical: - Allergies: 23:39 Omeprazole; lp1 - Home Meds: 23:39 amitriptyline 25 mg Oral tab 1 tab nightly [Active]; aspirin 325 mg Oral tab 1 tab once lp1 daily [Active]; Wellbutrin XL 150 mg Oral Tb24 daily [Active]; Vitamin D3 2,000 unit oral cap [Active]; duloxetine 30 mg oral cpDR 1 cap once daily [Active]; estradiol 1 mg Oral tab 1 tab once daily [Active]; hydrochlorothiazide 25 mg Oral tab 1 tab once daily [Active]; meloxicam 15 mg Oral tab 1 tab once daily [Active]; metformin 500 mg Oral tab daily [Active]; Ritalin 10 mg oral tab [Active]; Plavix Oral [Active]; - PMHx: 23:39 Diabetes - NIDDM; Hypertension; TIA; Sleep Apnea; lp1 - PSHx: 23:39 Cholecystectomy; Hysterectomy; Partial somach removal; Appendectomy; lp1 - Immunization history:: Adult Immunizations up to date. - Social history:: Smoking status: Patient/guardian denies using tobacco, never smoked. Screenin:39 Abuse screen: Denies threats or abuse. Denies injuries from another. Nutritional lp1 screening: No deficits noted. Tuberculosis screening: No symptoms or risk factors identified. Fall Risk None identified. Assessment: 23:35 General: Appears in no apparent distress. uncomfortable, Behavior is calm, cooperative, bs1 appropriate for age. Pain: Denies pain. Neuro: Level of Consciousness is awake, alert, obeys commands, Oriented to person, place, time, situation, Appropriate for age Resource Recovery Specialist are equal bilaterally Moves all extremities. Gait is steady, Speech is normal, Facial symmetry appears normal, Pupils are PERRLA. Neuro: Reports headache. Cardiovascular: Denies chest pain, palpitations, shortness of breath, Heart tones S1 S2 present Capillary refill < 3 seconds Patient's skin is warm and dry. Respiratory: Airway is patent Trachea midline Respiratory effort is even, unlabored, Respiratory pattern is regular, symmetrical, Breath sounds are clear bilaterally. GI: Abdomen is round non-distended, Bowel sounds present X 4 quads. : No deficits noted. No signs and/or symptoms were reported regarding the genitourinary system. EENT: No deficits noted. No signs and/or symptoms were reported regarding the EENT system. Derm: No deficits noted. No signs and/or symptoms reported regarding the dermatologic system. Musculoskeletal: Circulation, motion, and sensation intact. Capillary refill < 3 seconds, Range of motion: intact in all extremities. 07/19 00:40 Reassessment: Patient appears in no apparent distress at this time. Patient and/or bs1 family updated on plan of care and expected duration. Pain level reassessed. Blood pressure decreased to 98/61, patient denies any dizziness or chest pain, Elevated head of bed, new cuff applied and Bolused fluids that were infusing at 125ml/hr per verbal order from Dr Ortiz. Vital Signs: 07/18 23:32 BP 131 / 78; Pulse 92; Resp 18; Temp 97.7(O); Pulse Ox 98% on R/A; Weight 81.65 kg; lp1 Height 5 ft. 5 in. (165.10 cm); Pain 0/10; 07/19 00:31 BP 98 / 61; Pulse 89; Resp 16; Pulse Ox 98% on R/A; bs1 00:34 BP 106 / 65; Pulse 98; Resp 16; Pulse Ox 98% ; bs1 01:00 BP 109 / 68; Pulse 82; Resp 16; Pulse Ox 97% on R/A; bs1 01:11 BP 117 / 72; Pulse 85; Resp 16; Pulse Ox 97% on R/A; bs1 07/18 23:32 Body Mass Index 29.95 (81.65 kg, 165.10 cm) lp1 ED Course: 07/18 23:15 Patient arrived in ED. ds1 23:18 Fermín Ortiz MD is Attending Physician. tw4 23:32 Triage completed. lp1 23:32 Arm band placed on left wrist. lp1 23:39 Korin Muñoz RN is Primary Nurse. bs1 23:39 Patient has correct armband on for positive identification. Pulse ox on. NIBP on. lp1 04 00:05 Initial lab(s) drawn, by me, sent to lab. Inserted saline lock: 22 gauge in right cb2 forearm, using aseptic technique. Blood collected. 01:20 No provider procedures requiring assistance completed. bs1 01:33 IV discontinued, bleeding controlled, No redness/swelling at site. Pressure dressing bs1 applied. Administered Medications: 07/18 23:54 CANCELLED (wrong order): hydrALAZINE 20 mg IV at bolus once tw4 07/19 00:03 Drug: Insulin Regular Human 5 units {Co-Signature: trinity1 (Trinh Escobedo RN).} Route: IVP; bs1 Site: right forearm; 01:13 Follow up: Response: No adverse reaction bs1 00:04 Drug: NS 0.9% 1000 ml Route: IV; Rate: 125 ml/hr; Site: right forearm; bs1 01:34 Follow up: IV Status: Completed infusion bs1 Point of Care Testing: Blood Glucose: 07/18 23:39 Blood Glucose: 245 mg/dL; lp1 04 00:46 Blood Glucose: 136 mg/dL; bs1 Ranges: Outcome: 00:35 Discharge ordered by . tw4 01:33 Discharged to home ambulatory, with family. bs1 01:33 Condition: stable 01:33 Discharge instructions given to patient, family, Instructed on discharge instructions, follow up and referral plans. Demonstrated understanding of instructions, follow-up care. 01:34 Patient left the ED. bs1 Signatures: Bella Garcia dsTrinh Hollis, ARTEMIO RN lp1 Alexandro Garcia cb2 Korin Muñoz, ARTEMIO RN bs1 Fermín Ortiz MD MD tw4 Trinh Escobedo RN lpCarisa
--- NOTE | 2017-07-19 00:36 | EDPHYS ---
Physician Documentation [facility] Name: Ny García Age: 67 yrs Sex: Female : 1950 Arrival Date: 07/18/2017 Time: 23:15 Bed 15 Private MD: ED Physician Fermín Ortiz HPI: 07/19 02:15 This 67 yrs old Female presents to ER via Wheelchair with complaints of High tw4 Blood Sugar - + 400. 02:15 The patient or guardian reports hyperglycemia. Onset: The symptoms/episode tw4 began/occurred today. Associated signs and symptoms: Pertinent positives: None. Pertinent negatives: None. Current symptoms: In the emergency department the patient's symptoms are unchanged from the initial presentation. The patient has not experienced similar symptoms in the past. The patient has not recently seen a physician. Historical: - Allergies: 07/18 23:39 Omeprazole; lp1 - Home Meds: 23:39 amitriptyline 25 mg Oral tab 1 tab nightly [Active]; aspirin 325 mg Oral tab 1 tab once lp1 daily [Active]; Wellbutrin XL 150 mg Oral Tb24 daily [Active]; Vitamin D3 2,000 unit oral cap [Active]; duloxetine 30 mg oral cpDR 1 cap once daily [Active]; estradiol 1 mg Oral tab 1 tab once daily [Active]; hydrochlorothiazide 25 mg Oral tab 1 tab once daily [Active]; meloxicam 15 mg Oral tab 1 tab once daily [Active]; metformin 500 mg Oral tab daily [Active]; Ritalin 10 mg oral tab [Active]; Plavix Oral [Active]; - PMHx: 23:39 Diabetes - NIDDM; Hypertension; TIA; Sleep Apnea; lp1 - PSHx: 23:39 Cholecystectomy; Hysterectomy; Partial somach removal; Appendectomy; lp1 - Immunization history:: Adult Immunizations up to date. - Social history:: Smoking status: Patient/guardian denies using tobacco, never smoked. ROS: 07/19 02:15 Constitutional: Negative for fever, chills, and weight loss, Cardiovascular: Negative tw4 for chest pain, palpitations, and edema, Respiratory: Negative for shortness of breath, cough, wheezing, and pleuritic chest pain, Abdomen/GI: Negative for abdominal pain, nausea, vomiting, diarrhea, and constipation, Back: Negative for injury and pain, MS/Extremity: Negative for injury and deformity, Skin: Negative for injury, rash, and discoloration, Neuro: Negative for headache, weakness, numbness, tingling, and seizure. Exam: 02:15 Constitutional: This is a well developed, well nourished patient who is awake, alert, tw4 and in no acute distress. Head/Face: Normocephalic, atraumatic. Chest/axilla: Normal chest wall appearance and motion. Nontender with no deformity. No lesions are appreciated. Cardiovascular: Regular rate and rhythm with a normal S1 and S2. No gallops, murmurs, or rubs. Normal PMI, no JVD. No pulse deficits. Respiratory: Lungs have equal breath sounds bilaterally, clear to auscultation and percussion. No rales, rhonchi or wheezes noted. No increased work of breathing, no retractions or nasal flaring. Abdomen/GI: Soft, non-tender, with normal bowel sounds. No distension or tympany. No guarding or rebound. No evidence of tenderness throughout. Back: No spinal tenderness. No costovertebral tenderness. Full range of motion. MS/ Extremity: Pulses equal, no cyanosis. Neurovascular intact. Full, normal range of motion. Neuro: Awake and alert, GCS 15, oriented to person, place, time, and situation. Cranial nerves II-XII grossly intact. Motor strength 5/5 in all extremities. Sensory grossly intact. Cerebellar exam normal. Normal gait. Vital Signs: 07/18 23:32 BP 131 / 78; Pulse 92; Resp 18; Temp 97.7(O); Pulse Ox 98% on R/A; Weight 81.65 kg; lp1 Height 5 ft. 5 in. (165.10 cm); Pain 0/10; 04 00:31 BP 98 / 61; Pulse 89; Resp 16; Pulse Ox 98% on R/A; bs1 00:34 BP 106 / 65; Pulse 98; Resp 16; Pulse Ox 98% ; bs1 01:00 BP 109 / 68; Pulse 82; Resp 16; Pulse Ox 97% on R/A; bs1 01:11 BP 117 / 72; Pulse 85; Resp 16; Pulse Ox 97% on R/A; bs1 07/18 23:32 Body Mass Index 29.95 (81.65 kg, 165.10 cm) lp1 MDM: 07/18 23:18 Patient medically screened. tw4 07/19 02:17 Data reviewed: vital signs, nurses notes. Counseling: I had a detailed discussion with tw4 the patient and/or guardian regarding: the historical points, exam findings, and any diagnostic results supporting the discharge/admit diagnosis. Special discussion: I discussed with the patient/guardian in detail that at this point there is no indication for admission to the hospital. It is understood, however, that if the symptoms persist or worsen the patient needs to return immediately for re-evaluation. 07/18 23:28 Order name: CBC w/o diff; Complete Time: 00:15 tw4 07/18 23:28 Order name: CMP; Complete Time: 00:34 tw4 07/19 00:34 Interpretation: Normal except: BUN 23; GLUC 226; NA 132; CRE 1.02; GFR 54. tw4 07/19 00:46 Order name: Glucose, Ancillary Testing EDMS 07/19 00:46 Order name: Glucose, Ancillary Testing EDMS Administered Medications: 07/18 23:54 CANCELLED (wrong order): hydrALAZINE 20 mg IV at bolus once tw4 07/19 00:03 Drug: Insulin Regular Human 5 units {Co-Signature: lp1 (Trinh Escobedo RN).} Route: IVP; bs1 Site: right forearm; 01:13 Follow up: Response: No adverse reaction bs1 00:04 Drug: NS 0.9% 1000 ml Route: IV; Rate: 125 ml/hr; Site: right forearm; bs1 01:34 Follow up: IV Status: Completed infusion bs1 Point of Care Testing: Blood Glucose: 07/18 23:39 Blood Glucose: 245 mg/dL; lp1 07/19 00:46 Blood Glucose: 136 mg/dL; bs1 Ranges: Critical Glucose Levels:Adult <50 mg/dl or >400 mg/dl <40 mg/dl or >180 mg/dl Disposition: 07/19/17 00:35 Discharged to Home. Impression: Hyperglycemia, unspecified. - Condition is Stable. - Discharge Instructions: Hyperglycemia, Blood Glucose Monitoring, Adult, Hyperglycemia, [id number]. - Medication Reconciliation Form, Thank You Letter, Antibiotic Education, Prescription Opioid Use form. - Follow up: Private Physician; When: As needed; Reason: Recheck today's complaints, Continuance of care, Re-evaluation by your physician. - Problem is new. - Symptoms have improved. Signatures: Dispatcher [employer] Trinh Henley, RN RN lp1 Korin Muñoz RN RN bs1 Fermín Ortiz MD MD tw4 Trinh Escobedo RN lp1 Corrections: (The following items were deleted from the chart) 07/18 23:54 23:48 hydrALAZINE 20 mg IV at bolus once ordered. tw4 tw4
== END 2017-07-19 01:34 | disposition home or self-care (01) ==
LOC: ER 23:14
DX: E11.9 Type 2 diabetes mellitus without complications (principal); I10 Essential (primary) hypertension; Z88.8 Allergy status to other drugs, medicaments and biological substances
CPT/HCPCS: 36415; 80053; 82962; 85027; 96361; 96374; 99284; J7030

== ENCOUNTER → 2021-03-31 | Emergency (ER) | payer OTHER, MEDICARE ==
--- OUTSIDE RECORDS SUMMARY | 2021-03-31 20:15 | XMS REPORT | Continuity of Care Document ---
:1950 Author Organization [facility] t Address [address] [place] [address] Care Team Providers Name Role Phone Sharpless Primary Care Physician Unavailable ETIENNE SNELL Attending Clinician Unavailable SARAI NAVARRO Attending Clinician Unavailable MORAIMA ALCAZAR Attending Clinician Unavailable Roselia Hart MD Attending Clinician Ricardo Stockton MD Attending Clinician Narendra MALDONADO Attending Clinician Unavailable Milly Mosqueda MD Attending Clinician Jacqueline Peace MD Attending Clinician [phone] Zeferino CAMERON Attending Clinician Wan VALLADARES Attending Clinician Unavailable Arash GOMEZ Attending Clinician Unavailable Hernan Olson MD Attending Clinician Melodie Stockton NP Attending Clinician Ady GUEVARA Attending Clinician Marilyn Burgos NP Attending Clinician Deyvi Pierce MD Attending Clinician Kedar Attending Clinician Unavailable Smith CAMERON Attending Clinician Glenroy Mcfadden MD Attending Clinician Ingrid ROSARIO-Anuel Attending Clinician FLORA KOENIG Attending Clinician Unavailable TONYA Admitting Clinician Unavailable MAHIN Admitting Clinician Unavailable FLORA KOENIG Admitting Clinician Unavailable Payers Payer Name Policy Type Policy Number Effective Date Expiration Date Olivia pollock MEDICARE PART A [id number] 2017 AND B 00:00:00 Problems Condition Condition Condition Status Onset Resolution Last Treating Co mments Source Name Details Category Date Date Treatment Clinician Date Paroxysmal Paroxysmal Disease Active Overview : [facility] atrial atrial 4-[address] fibrillati fibrillati 00:00: g of this Hospita on on 00 note is l different from the original. No palpitati ons; on BBResults for orders placed or performed in visit on 05/07/19 ECG 12 lead Result Value Ref Range Ventricul ar rate 76 Atrial rate 76 TN interval 130 QRSD interval 76 QT interval 408 QTC interval 459 P axis 1 45 QRS axis 1 50 T wave axis 57 EKG impressio n Normal sinus rhythm-Po ssible Left atrial enlargeme nt-Nonspe cific T wave abnormali ty-Abnorm al ECG-In automated compariso n with ECG of 05-JUL-19 19 04:34,-Ve nt. rate has decreased BY 48 BPM-Nonsp ecific T wave abnormali ty, worse in Anterolat eral leads-Cinthia ctronical ly Signed By John CAMERON [facility] ([id number]) on 05/07/2019 9:15:57 PM Morbid Morbid Disease Active [facility] (severe) (severe) 4-06 st obesity obesity 00:00: Hospita due to due to 00 l excess excess calories calories Effusion, Effusion, Disease Active Overview: [facility] left knee left knee 2-02 Formattin s t 00:00: g of this Hospita 00 note l might be different from the original. S/p shots and feeling ok S/P right S/P right Disease Active Met hodi rotator rotator 1-12 st cuff cuff 00:00: Hospita repair repair 00 l Dyslipidem Dyslipidem Disease Active Overview : Methodi ia ia 8-[address] 00:00: g of this Hospita 00 note l might be different from the original. The 10-year ASCVD risk score (Liashanti VINSON Jr., et al., 2013) is: 16.4% Values used to calculate the score: Age: 70 years Sex: Female Is Non-Hispa vilma : Yes Diabetic: Yes Tobacco smoker: No Systolic Blood Pressure: 110 mmHg Is BP treated: Yes HDL Cholester ol: 59 mg/dL Total Cholester ol: 155 mg/dLPer cards - not on statin S/P S/P Disease Active [facility] cervical cervical 2-10 st spinal spinal 00:00: Hospita fusion fusion 00 l Allergic Allergic Disease Active 2018-04 Last Metho di conjunctiv conjunctiv 2-[address] itis of itis of 00:00: t & Plan: Hospi ta both eyes both eyes 00 Formattin l g of this note might be different from the original. C/O epiphora OU, intermitt ent, qod.Has chemosis OD and chalasia OU.Trial Bepreve OU BID with refills and prolensa OU qd x 1 Rx.Call if NI for appt with Dr. Avery for irrigatio n/probing . 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 Stable OD since childhood . Benign. Follow. Call if notices change. Dry eye Dry eye Disease Active 2017-04 Last [facility] syndrome syndrome 2-[address] of both of both 00:00: t & Plan: Hospi ta lacrimal lacrimal 00 Formattin l glands glands g of this note might be different from the original. ATs. DDD DDD Disease Active 2017-04 [facility] (degenerat (degenerat 2-19 st alejandro disc alejandro disc 00:00: Hospit a disease), disease), 00 l cervical cervical Bipolar Bipolar Disease Active 2017-04 Overview: Meth alberto affective affective 0-19 Formattin s t disorder, disorder, 00:00: g of this H ospita currently currently 00 note l depressed, depressed, might be mild mild different from the original. Per patient psych stated no longer biploar decreased risperido ne to .5 DDD DDD Disease Active [facility] (degenerat (degenerat 9-23 st alejandro disc alejandro disc 00:00: Hospit a disease), disease), 00 l lumbar lumbar PFO PFO Disease Active Overview: Method i (patent (patent 3-[address] foramen foramen 00:00: g of this Hospi ta ovale) ovale) 00 note l might be different from the original. Summary The LV endocardi um is adequatel y visualize d. The left ventricle is chamber size (by vol index) is small. Mild concentri c LV hypertrop hy. All of the LV segments contract normally . Global LV systolic function normal . LVEF by Hooper's method of disk assessmen t is normal (55-60%) . Grade 1 diastolic dysfuncti on (impaired relaxatio n and low-inés l LA pressure) . The right ventricul ar chamber size and systolic function are within normal limits. Previous Study In compariso n with the prior exam on 4 there are no significa nt changes. Reported PFO is still demonstra wilberto by bubble study.- on plavix nowLast Assessmen t & Plan: Formattin g of this note might be different from the original. Will follow up with cardiolog y. 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 Dr. Ron holder Assessmen t & Plan: Formattin g of this note might be different from the original. Slowly progressi ve, not visually significa nt. Follow. MRx updated. Minimal Minimal Disease Active 2016-04 Overview: Meth alberto cognitive cognitive -21 Formattin s t impairment impairment 00:00: g of this Hospita 00 note l might be different from the original. I am concerned about patient's memory; She states she was seen by neuro and testing done however I do not have those records. Dr. Clancy.MO CA - 07/12 - Foll owed by Dr. Curran r - thought to be s/s to depressio n - seems to be improving . Follow up - neuropsy h testing showed MCI - no alzheimer 's8/10- on namenda per Dr. Garibay Assessmen t & Plan: Formattin g of this note might be different from the original. Will fax to psychiatr y. HEBER HEBER Disease Active Overview: Method i (obstructi (obstructi 4-[address] ve sleep ve sleep 00:00: g of this Hos papito apnea) apnea) 00 note l might be different from the original. Pt with fatigue and excessive snoring. Cards recommend sleep study - She was found to need a CPAP - she doesn't want to wear anything over her face.Repe at sleep study done in July 2016 - she did not want the machine and deferred it. Per Dr. Mejía - will get CPAP fitted and follow up with him in - has not been as complaint because of shoulder pain- c.o. Dry mouth11/28 - compliant 11/2020- due to see Dr. Mejía bc of supply issueLast Assessmen t & Plan: Formattin g of this note might be different from the original. Refer to pulmonary to see if she can get a machine she can tolerate. Chronic Chronic Disease Active Overview: Meth alberto depression depression 12-[address] 00:00: g of this Hospita 00 note l might be different from the original. Not controlle d; bupropion and lexapro; has not been able to follow up with psychiatr y; previous referral not placed -Seeing Dr. Prado. Lots of medicatio n adjustmen ts. On cymbalta and ritalin now, wellbutri n and elavil for sleep.- in pursuit of new psychiatr ist [facility]. Will need to follow up after. aw MD psych - Dr. Snell- medicatio ns adjusted: new regimen-- effexor & remeron 09/27- Seeing therapist ; Dr. Mariel Moore - happy to talk with her11/2020 - psych stopped resperida lLast Assessmen t & Plan: Formattin g of this note might be different from the original. Depressio n much improved. Continue to follow up with psych. Tension Tension Disease Active [facility] headache headache - [facility] - 00:[facility]: Medical [address] [place] [address] Memory Memory Disease Active [facility] loss, loss, 9-20 [facility] - short term short term 00:00: Me dical 00 Center Personal Personal Disease Active [facility] history of history of -20 С[facility]лана kes - noncomplia noncomplia 00:00: Me dical nce with nce with 00 Center medical medical treatment, treatment, presenting presenting hazards to hazards to health health Vitamin D Vitamin D Disease Active [facility] deficiency deficiency 2-13 Светлана kes - 00:00: Medical 00 Center History of History of Disease Active Overview : [facility]i TIA TIA 6-[address] (transient (transient 00:00: g of this Hospita ischemic ischemic 00 note l attack) attack) might be different from the original. In 2013 - MRI CT scan normal; likely TIAOtherw ise, unremarka ble intracran ial MRI and intra and extracran ial MRAs. Essential Essential Disease Active Overview: [facility] hypertensi hypertensi 6-[address] on on 00:00: g of this Hospita 00 note l might be different from the original. Stable on hctz,meto prolol and amlodipin e; no chest painHas been feeling fatigued - BP is controlle dLast Assessmen t & Plan: Formattin g of this note might be different from the original. Hypertens ion is well controlle d on current regimen. Type 2 Type [address] [facility] diabetes diabetes 18 [facility] - mellitus mellitus 00:00: Medica l without without 00 Center complicati complicati on on HTN HTN Disease Active [facility] (hypertens (hypertens 6-18 Светлана kes - ion) ion) 00:00: Medical 00 Center Cerebral Cerebral Disease Active Overview: [facility] infarction infarction -18 Formattin [facility] - 00:00: g of this Medical 00 note Center might be different from the original. In 2013 - MRI CT scan normal; likely TIAOtherw ise, unremarka ble intracran ial MRI and intra and extracran ial MRAs. Migraines Migraines Disease Active Overview: [facility] 6-18 Form[facility]in [facility] - 00:00: g of this Medical 00 note Center might be different from the original. UPDATED BY ICD10 SNOMED/IM O UPDATES Diabetes Diabetes Disease Active Overview: Me thodi mellitus mellitus Formattin st without without g of this Hospi ta complicati complicati note l on on might be different from the original. Previous A1c -6.1 - 5.9 5.8 - 6.1 -6.5%- 6.8-6.5%- 6.5%Only on metformin BIDChecki ng sugarsLDL < 100 - yes - LD 71 - not on statinBlo od pressure < 130/80 - no -yesDiabe tic Eye Exam: Dr. Mosqueda Larisa baby ASA: yesFoot exam: good; has neuropath y Proteinur ia: mild Last Assessmen t & Plan: Formattin g of this note might be different from the original. No diabetic retinopat hy. Annual exams recommend ed. Importanc e of good blood sugar control discussed . Note sent Dr. Hart. Peptic Peptic Disease Active Overview: [facility] ulcer ulcer Formattin [facility] - disease disease g of this Medic al note Center might be different from the original. Karthik Rowell S/P S/P Disease Active Overview: [facility] gastrectom gastrectom Formattin [facility] - y y g of this Medical note Center might be different from the original. secondary to PUD. Dr. Britt . H/O H/O Disease Active Overview: [facility] colonoscop colonoscop Formattin [facility] - y y g of this Medical note Center might be different from the original. Normal colonosco py --> Due again in 2022. Irritable Irritable Disease Active Overview: [facility] bowel bowel Formattin [facility] - syndrome syndrome g of this [facility] ical note Center might be different from the original. On Bentyl Allergies, Adverse Reactions, Alerts Allergy Allergy Status Severity Reaction(s) Onset Inactive Treating Comm ents Source Name Type Date Date Clinician Nsaids Propensi Active Other (See Has a Meth alberto (Non-Tyshawn ty to Comments) 9-[address] roidal adverse 00:00: condition Hospit a Anti-Inf reaction 00 , PFO and l lammator s to y Drug) drug Omeprazo Drug Active Nausea Only [facility] le Intolera 6-30 [facility] - nce 00:00: Medical 00 Center Family History Family Member Diagnosis Comments Start Date Stop Date Source Natural father Stroke [facility] Natural father Aneurysm [facility] Natural father Dementia [facility] Natural father Cancer [facility] Natural father Dementia [facility] Natural father Diabetes [facility] Natural mother Cancer [facility] Natural sister Multiple sclerosis [facility] Social History Social Habit Start Date Stop Date Quantity Comments Source History SDOH [facility] - Alcohol Frequency Medical Center History SDOH [facility] - Alcohol Std Drinks Medica l Center History SDOH [facility] - Alcohol Binge Medical [facility] ter Tobacco use and 2020-11-12 2020-11-12 Never used [facility] exposure 00:00:00 00:00:00 Hospital Alcohol intake 2020-11-12 2020-11-12 Lifetime [facility]into 00:00:00 00:00:00 non-drinker Hospital (finding) Alcohol Comment 2013-09-26 2013-09-26 seldom once a ANDREW Swift - 00:00:00 00:00:00 year Medical Center Sex Assigned At [birth year] [facility] kes - 00:00:00 00:00:00 Medical Center Smoking Status Start Date Stop Date Source Never smoker [facility] Medications Ordered Filled Start Stop Current Ordering Indication Dosage Frequency Signature Comments Components Source Medication Medication Date Date Medication? Clinician (SIG) Name Name risperiDONE 2020- No .5mg QD Take 0.5 M ethodi (RisperDAL) 7-15 07-[address] 1 MG tablet 16:55: 00:00 mouth Hosp daxa 51 :00 nightly. l cholecalcif Yes 2000U QD Take 2,000 Method[facility] filemon, 7-[address] vitamin D3, 16:25: mouth Hospi ta (VITAMIN 52 every l D3) 2,000 morning. unit capsule capsule mirtazapine Yes 30mg QD Take 30 mg [facility] (REMERON) 7-[address] 30 MG 16:25: nightly. Hospita tablet 52 l folic Yes 1{tbl} QD Take 1 [facility] acid/multiv 7-[address] it-min/lute 16:25: mouth Hospi ta in (CENTRUM 52 daily. l SILVER ORAL) polyethylen Yes 17g Take 17 g M ethodi e glycol 7-[address] (MIRALAX) 16:25: as needed. Ho spita 17 gram 52 l packet memantine Yes [id number] Take two [facility] (NAMENDA) 5 7-[address] MG tablet 00:00: morning, Hosp daxa 00 take one l in the evening topiramate Yes [id number] 25mg QD Take 1 [facility] (TOPAMAX) 7-15 9102 tablet (25 st 25 MG 00:00: mg total) Hospita tablet 00 by mouth l every evening. metFORMIN Yes [id number] TAKE 1 M ethodi (GLUCOPHAGE 7-13 TABLET(500 st ) 500 mg 00:00: MG) BY Hospita tablet 00 MOUTH l TWICE DAILY WITH MEALS amLODIPine Yes [id number] TAKE 1 M ethodi (NORVASC) 5 7-[address] mg tablet 00:00: MOUTH Hospita 00 DAILY l topiramate 2020- No [id number] TAKE 1 [facility] (TOPAMAX) 10-20 07-15 9102 TABLET(25 st 25 MG 00:00: 00:00 MG) BY Hospita tablet 00 :00 MOUTH l EVERY EVENING memantine 2020- No [id number] 5mg Q.5D Take 1 [facility] (NAMENDA) 5 6 07-15 tablet (5 st MG tablet 00:00: 00:00 mg total) Ho spita 00 :00 by mouth 2 l (two) times a day. topiramate 2020- No [id number] 25mg QD Take 1 [facility] (Topamax) 6-12 9102 tablet (25 st 25 MG 00:00: 00:00 mg total) Hospit a tablet 00 :00 by mouth l every evening. metoprolol Yes [id number] TAKE 1 [facility] succinate 5-14 TABLET(25 st XL 00:00: MG) BY Hospita (TOPROL-XL) 00 MOUTH l 25 mg 24 hr DAILY tablet hydroCHLORO 2020- No [id number] 25mg QD Take 1 [facility] thiazide 4-04 tablet (25 st (HYDRODIURI 00:00: 00:00 mg total) Hospita L) 25 MG 00 :00 by mouth l tablet daily. metFORMIN 2020- No [id number] 500mg Q.5D Take 1 [facility] (GLUCOPHAGE 07-15- tablet st ) 500 mg 00:00: 00:00 (500 mg Hospi ta tablet 00 :00 total) by l mouth 2 (two) times a day with meals. amLODIPine 2020- No [id number] TAKE 1 [facility] (NORVASC) 5 07-15-[address] mg tablet 00:00: 00:00 MOUTH Hospit a 00 :00 DAILY l metoprolol 2020- No [id number] 25mg QD Take 1 [facility] succinate 07-15-14 tablet (25 st XL 00:00: 00:00 mg total) Hospita (TOPROL-XL) 00 :00 by mouth l 25 mg 24 hr daily. tablet hydroCHLORO 2020- No [id number] TAKE 1 [facility] thiazide 07-14- TABLET(25 st (HYDRODIURI 00:00: 00:00 MG) BY Hos papito L) 25 MG 00 :00 MOUTH l tablet DAILY metFORMIN 2020- No [id number] TAKE 1 [facility] (GLUCOPHAGE 30 - TABLET(500 s t ) 500 mg 00:00: 00:00 MG) BY Hospit a tablet 00 :00 MOUTH l TWICE DAILY WITH MEALS memantine 2020- No [id number] 5mg Q.5D Take 1 [facility] (NAMENDA) 5 06-09 tablet (5 st MG tablet 00:00: 00:00 mg total) Ho spita 00 :00 by mouth 2 l (two) times a day. gabapentin 2020- No [id number] TAKE 1 [facility] (NEURONTIN) 216 -06 CAPSULE(30 s t 300 mg 00:00: 00:00 0 MG) BY Hospit a capsule 00 :00 MOUTH l EVERY DAY AT 3 PM acetaminoph 2020- [place] [id number] 1{tbl} Q6H Take 1-2 [facility] en-codeine 2-02 02-[address] (TYLENOL 00:00: 05:59 mouth Hospita WITH 00 :00 every 6 l CODEINE #3) (six) 300-30 mg hours as per tablet needed for moderate pain for up to 7 days .acute pain. acetaminoph 2020- [place] [id number] 1{tbl} Q6H Take 1 [facility] en-codeine 04-[address] (TYLENOL 00:00: 05:59 mouth Hospita WITH 00 :00 every 6 l CODEINE #3) (six) 300-30 mg hours as per tablet needed for moderate pain or severe pain (post operative) for up to 10 days .acute pain. metFORMIN 2020- No [id number] TAKE 1 [facility] (GLUCOPHAGE 04-1130 TABLET(500 s t ) 500 mg 00:00: 00:00 MG) BY Hospit a tablet 00 :00 MOUTH l TWICE DAILY WITH MEALS sulfamethox 2019-04- No 1{tbl} Q.5D Take 1 M ethodi azole-trime 06-[address] thoprim 00:00: 05:59 mouth 2 Hospit a (Bactrim 00 :00 (two) l DS) 800-160 times a mg per day for 10 tablet days. HYDROcodone 2019-04 [place] [id number] 1{tbl} Q6H Take 1 [facility]i -acetaminop 06-01 tablet by hen (NORCO) 00:00: 05:59 mouth Hosp daxa 10-325 mg 00 :00 every 6 l per tablet (six) hours as needed for moderate pain for up to 10 days .acute pain. Max Daily Amount: 4 tablets gabapentin 2019-04 No [id number] 300mg QD Take 1 [facility] (NEURONTIN) 1-[address] 300 mg 00:00: (300 mg Hospita capsule 00 total) by l mouth daily. Every 3 pm memantine 2019-04- No [id number] 5mg Q.5D Take 1 [facility] (NAMENDA) 5 - tablet (5 st MG tablet 00:00: 00:00 mg total) Ho spita 00 :00 by mouth 2 l (two) times a day. hydroCHLORO 2020- No [id number] TAKE 1 [facility] thiazide 12-2205 TABLET(25 st (HYDRODIURI 00:00: 00:00 MG) BY Hos papito L) 25 MG 00 :00 MOUTH l tablet DAILY metFORMIN 2020- No [id number] TAKE 1 [facility] (GLUCOPHAGE 12-22 TABLET(500 s t ) 500 mg 00:00: 00:00 MG) BY Hospit a tablet 00 :00 MOUTH l TWICE DAILY WITH MEALS gabapentin 2019- No [id number] 300mg QD Take 1 [facility] (NEURONTIN) 10-09 11-[address] 300 mg 00:00: 00:00 (300 mg Hospita capsule 00 :00 total) by l mouth daily. Every 3 pm amLODIPine 2020- No [id number] TAKE 1 [facility] (NORVASC) 5 6-21 04-[address] mg tablet 00:00: 00:00 MOUTH Hospit a 00 :00 DAILY l blood sugar Yes [id number] USE FOUR [facility] diagnostic 6-[address] strips 00:00: DAILY Hospita (FreeStyle 00 DIRECTED l Lite Strips) strip test strips clopidogreL Yes Method i (PLAVIX) 75 6-05 st mg tablet 00:00: Hospita 00 l freestyle Yes CHECK [facility]i 28 gauge 5-[address] lancets 00:00: SUGAR FOUR Hosp daxa 00 TIMES l DAILY olopatadine Yes 1[drp] Q.5D Administer [facility] (PATANOL) 5-[address] 0.1 % 00:00: both eyes Hospita ophthalmic 00 2 (two) l solution times a day. DULoxetine Yes [id number] 60mg Q.5D Take 60 mg [facility] (CYMBALTA) 4-[address] 60 MG 00:00: (two) Hospita capsule 00 times a l day. metoprolol 2020- No Method i succinate 4-17 04-06 st XL 00:00: 00:00 Hospita (TOPROL-XL) 00 :00 l 25 mg 24 hr tablet lancets 2018-04 Yes [id number] Use one Me thodi misc 0-[address] 00:00: daily. Hospita 00 Covered by l insurance blood-gluco 2018-04 2020- No [id number] Covered by Methodi se meter 0-18 10-[address] (glucose 00:00: 04:59 Hospita monitoring 00 :00 l kit) kit dicyclomine Yes 20mg Take [address] (BENTYL) 20 3-05 by mouth Luke s - mg tablet 19:56: every 6 Medic al 48 (six) Center hours. cholecalcif 2018-0 Yes QD Take by [facility] filemon, 3-05 mouth [facility] - vitamin D3, 19:56: daily. Medi itzel 2,000 unit 48 Center Cap MULTIVITAMI [id number] Yes 1{tbl} QD Take [address] N/IRON/FOLI 3-05 tablet by Inderjit es - C ACID 19:56: mouth Medical (CENTRUM 48 daily. [place] ULTRA WOMEN'S ORAL) dicyclomine 2017-0 Yes 20mg Take [address] (BENTYL) 20 3-05 by mouth Luke s - mg tablet 19:56: every 6 Medic al 48 (six) Center hours. cholecalcif 2018-0 Yes QD Take by [facility] filemon, 3-05 mouth [facility] - vitamin D3, 19:56: daily. Medi tizel 2,000 unit 48 [place] Cap MULTIVITAMI 2018 Yes 1{tbl} QD Take [address] N/IRON/FOLI 3-05 tablet by Inderjit es - C ACID 19:56: mouth Medical (CENTRUM 48 daily. [place] ULTRA WOMEN'S ORAL) buPROPion 2016- Yes 300mg QD Take 1 [facility] t (WELLBUTRIN 3-14 tablet [facility] - XL) 300 MG 00:00: (300 mg Medi itzel 24 hr 00 total) by Center tablet mouth daily. buPROPion [id number] Yes 300mg QD Take 1 [facility] t (WELLBUTRIN 3-14 tablet [facility] - XL) 300 MG 00:00: (300 mg Medi itzel 24 hr 00 total) by Center tablet mouth daily. amitriptyli Yes TAKE [address] ne (ELAVIL) 9-28 TABLET BY Inderjit es - 25 MG 00:00: MOUTH Medical tablet 00 EVERY Center NIGHT AT BEDTIME amitriptyli Yes TAKE [address] ne (ELAVIL) 9-28 TABLET BY Inderjit es - 25 MG 00:00: MOUTH Medical tablet 00 EVERY Center NIGHT AT BEDTIME escitalopra 2015- Yes Other 20mg QD Take [address] [facility] m oxalate 6-30 depression tablet (20 [facility] - (LEXAPRO) 00:00: mg total) Med ical 20 MG 00 by mouth Center tablet daily. hydrochloro 2016-0 Yes Essential 25mg QD Take 0.[address] thiazide 6-30 hypertensio tablets L ukes - (HYDRODIURI 00:00: n with goal (25 mg Medical L) 50 MG 00 blood total) by Cente r tablet pressure mouth less than daily. 130/85 metFORMIN Yes Type 2 500mg Take [address] (GLUCOPHAGE 6-30 diabetes tablet Светлана kes - ) 500 MG 00:00: mellitus (500 mg Me dical tablet 00 without total) by Cente r complicatio mouth n ([facility]) daily with breakfast. escitalopra Yes Other 20mg QD Take [address] m oxalate 6-30 depression tablet (20 [facility] - (LEXAPRO) 00:00: mg total) Med ical 20 MG 00 by mouth Center tablet daily. hydrochloro Yes Essential 25mg QD Take 0.[address] thiazide 6-30 hypertensio tablets L ukes - (HYDRODIURI 00:00: n with goal (25 mg Medical L) 50 MG 00 blood total) by Cente r tablet pressure mouth less than daily. 130/85 metFORMIN Yes Type 2 500mg Take [address] (GLUCOPHAGE 6-30 diabetes tablet Светлана kes - ) 500 MG 00:00: mellitus (500 mg Me dical tablet 00 without total) by Cente r complicatio mouth n ([facility]) daily with breakfast. Immunizations Ordered Immunization Filled Immunization Date Status Commen ts Source Name Name PFIZER COVID-19 MRNA 2020-07-08 Completed Meth odist VACCINATION 00:00:00 [facility] PFIZER COVID-19 MRNA 2020-06-17 Completed Meth odist VACCINATION 00:00:00 Hospital Pneumococcal 2020-03-14 Completed [facility] Polysaccharide 00:00:00 Hospital FLUCELVAX QUAD PF 2020-01-[address] 00:00:00 Hospital FLUZONE HIGH-DOSE PF 2019-03-07 Completed Meth odist 00:00:00 Hospital FLUZONE HIGH-DOSE PF 2018-01-27 Completed Meth odist 00:00:00 Hospital Influenza Trivalent 2017-01-11 Completed Metho dist 00:00:00 Hospital Pneumococcal 2016-03-11 Completed [facility] Conjugate 13-Valent 00:00:00 Hospi mauro Influenza Trivalent 2016-01-10 Completed Metho dist 00:00:00 Hospital Influenza TIV (IM) 2016-01-10 Completed [facility] 00[facility]00 [facility] Influenza TIV (IM) 2016-01-[address] [facility]00 [facility] ap 2014-04-03 Completed [facility] 00:[facility]00 Hospital Tdap 2014-04-[address] [facility] 00:[facility]00 [facility] Tdap 2014-04-[address] [facility] - 00:[facility]:00 [facility] Pneumococcal 2014-01-30 Completed [facility] Polysaccharide 00:00:00 Hospital Pneumococcal 2014-01-[address] [facility] - Polysaccharide 00:00:00 Medical Ce nter (Pneumovax) Pneumococcal 2014-01-[address] [facility] - Polysaccharide 00:00:00 Medical Ce nter (Pneumovax) Zoster 2012-09-20 Completed [facility] 00:00:00 [facility] Tdap 2012-02-10 Completed [facility] 00:00:00 Hospital Zoster 2012-01-31 Completed [facility] 00:00:00 Hospital SHINGLES VARICELLA 2012-01-[address] [facility] - (ZOSTAVAX) ZOSTER 00:00:00 [facility] SHINGLES VARICELLA 2012-01-[address] [facility] - (ZOSTAVAX) ZOSTER 00:00:00 [facility] Influenza, 2012-01-10 Completed [facility] Unspecified 00:00:00 Hospital Pneumococcal 2011-10-01 Completed [facility] Polysaccharide 00:00:00 Hospital Influenza, 2011-01-04 Completed [facility] Unspecified 00:00:00 Hospital Vital Signs Vital Name Observation Time Observation Value Comments Source Systolic blood 2020-11-12 14:07:00 110 mm[Hg] [facility] pressure Diastolic blood 2020-11-12 14:07:00 77 mm[facility]Hg[facility] pressure Heart rate 2020-11-12 14:07:00 99 /[facility] Respiratory rate 2020-11-12 14:07:00 16 /min [facility] Body height 2020-11-12 14:07:00 165.1 cm [facility] Body weight 2020-11-12 14:07:[address] [facility] BMI 2020-11-12 14:07:00 31.45 kg/m2 [facility] Oxygen saturation in 2020-11-12 14:07:00 98 /min [facility] Arterial blood by Pulse oximetry Body temperature 2020-10-23 16:25:00 36.67 Jessica Meth [facility] Procedures Procedure Date / Time Performing Clinician Source Performed COMPREHENSIVE METABOLIC 2020-11-12 14:54:00 Tanner [facility] PANEL CBC WITH PLATELET AND 2020-11-12 14:54:00 Roselia Hart [facility] DIFFERENTIAL THYROID STIMULATING HORMONE 2020-11-12 14:54:00 Roselia Hart [facility] T4, FREE 2020-11-12 14:54:00 Tanner [facility] LIPID PANEL 2020-11-12 14:54:00 Tanner [facility] HEMOGLOBIN A1C 2020-11-12 14:54:00 Tanner [facility] VITAMIN D 25 HYDROXY LEVEL 2020-11-12 14:54:00 Roselia Hart [facility] MAGNESIUM LEVEL 2020-11-12 14:54[facility]00 [facility] CRE[facility]IN[facility] 2020-11-12 14:54:00 Roselia Hart [facility] URINE RATIO US DUPLEX VENOUS LOWER 2020-08-26 [facility]:56[facility] COMPREHENSIVE METABOLIC 2020-07-15 14:55[facility] LIPID PANEL 2020-07-15 14:55[facility]00 [facility] A1C 2020-07-15 14:55:00 Tanner [facility] MICROALBUMIN / CREATININE 2020-07-15 14:55:00 Roselia Hart [facility] URINE RATIO CBC WITH PLATELET AND 2020-07-15 14:55:00 Roselia Hart [facility] DIFFERENTIAL HEPATITIS C ANTIBODY 2020-07-15 14:55:00 Roselia Hart [facility] SURGICAL PATHOLOGY REQUEST 2020-06-30 18:57:00 Michelle [facility] Hai Phillips POC GLUCOSE 2020-06-30 17:07:00 AmaratungLeah meza spital Piyushiniderrick Claytonindika COLONOSCOPY 2020-06-30 16:34:00 [facility] 2020-06-30 15:19:00 Amaratguille [facility] COVID-19 QUALITATIVE RT-PCR 2020-06-25 17:37:00 [facility] [place] ARTHROCENTESIS 2020-06-19 20:30:00 Helder Stockton [facility] ASPIR&/INJ MAJOR JT/BURSA W/O [place] ARTHROCENTESIS 2020-06-12 15:30:00 Helder Stockton [facility] ASPIR&/INJ MAJOR JT/BURSA W/O US CRYSTALS, FLUID 2020-05-14 19:18[facility]00 [facility] [place] [facility] 2020-05-13 20:10:00 Helder Stockton [facility] ASPIR&/INJ MAJOR JT/BURSA W/O US [place] ARTHROCENTESIS 2020-04-08 16:40:00 [facility] ASPIR&/INJ MAJOR JT/BURSA W/O US AEROBIC CULTURE 2020-04-08 06:00:00 [place] Monica [facility] Melodie ANAEROBIC CULTURE 2020-04-08 06:00:00 Mahin Monica [facility] Melodie XR KNEE 4+ VW LEFT 2020-04-03 16:16:32 Vivian Garsia [facility] [place] AN ELECTIVE ENDOTRACHEAL 2020-03-31 14:56:30 Keny Shearer [facility] AIRWAY CRYSTAL ANALYSIS 2020-03-31 14:41:00 Helder Stockton ospital ARTERIAL LINE 2020-03-31 13:59:02 [facility] Deyvi ANESTHESIA PERIPHERAL BLOCK 2020-03-31 13:57:20 [facility] Deyvi ARTHROSCOPY, SHOULDER 2020-03-31 13:15:00 Helder Stockton [facility] POC GLUCOSE 2020-03-31 12:27:00 Helder Stockton Ho spital COVID-19 QUALITATIVE RT-PCR 2020-03-28 16:48:00 Helder Stockton [facility] US CAROTID DUPLEX BILATERAL 2020-03-19 22:09:48 Sarai Navarro [facility] IP CONSULT TO 2020-03-19 00:00:00 Provider, Brent [facility] GASTROENTEROLOGY XR CERVICAL SPINE AP 2020-03-12 15:34:06 Mira Mcfadd[facility] LATERAL FLEXION AND EXTENSION COMPREHENSIVE METABOLIC 2020-03-05 20:27:00 [facility] PANEL CBC WITH PLATELET AND 2020-03-05 20:27:00 [facility] DIFFERENTIAL THYROID STIMULATING HORMONE 2020-03-05 20:27:00 [facility] Roselia J [facility] T4, FREE 2020-03-05 20:27:00 [facility] LIPID PANEL 2020-03-05 20:27:00 [facility] HEMOGLOBIN A1C 2020-03-05 20:27:00 [facility] MICROALBUMIN / CREATININE 2020-03-05 20:27:00 [facility] URINE RATIO MRI SHOULDER WO CONTRAST 2020-02-04 17:14:31 Helder Stockton [facility] Plan of Care Planned Activity Planned Date Details Comments Source Future Scheduled Test INFLUENZA VACCINE [code [facility] = INFLUENZA VACCINE] Future Scheduled Test DIABETIC FOOT EXAM [facility] [code = DIABETIC FOOT EXAM] Future Scheduled Test URINE MICROALBUMIN [facility] [code = URINE MICROALBUMIN] Future Scheduled Test BREAST CANCER SCREENING [facility] [code = BREAST CANCER SCREENING] Future Scheduled Test DIABETES: RETINAL EYE [facility] EXAM [code = DIABETES: RETINAL EYE EXAM] Future Scheduled Test COLONOSCOPY SCREENING [facility] [code = COLONOSCOPY SCREENING] Encounters Start End Encounter Admission Attending Care Care Encounter Source Date/Time Date/Time Type Type Clinicians Facility Department ID 2021-03-20 Outpatient ALIS [facility] [id number] MD 16:55:18 [facility] 2021-03-20 Outpatient ALIS [facility] [id number] MD 16:25:12 [facility] 2021-01-16 [facility] [id number] MD 16:16:11 [facility] 2020-11-25 Outpatient ALIS, [facility] [id number] [place] 10:52:50 [facility] 2020-10-22 Outpatient ALIS, [facility] [id number] MD 11:36:25 [facility] 2020-08-16 Outpatient ALIS, [facility] [id number] MD 04:27:28 [facility] 2021-02-13 2021-02-13 Outpatient SARAI NAVARRO [facility] [id number] [place] 00:00:00 00:00:[address] 2021-01-20 2021-01-20 Outpatient INGE [facility] [id number] [place] 00:00:00 00:00:[address] 2020-11-12 2020-11-12 Lab Tanner, 1.2.840.1 [id number] Methodi 09:54:37 09:59:37 [address]643.1.[address] 3.430.2.7 Hospit a .3.376930 l .8 2020-11-12 2020-11-12 Office Tanner, 1.2.840.1 [id number] 87105 Methodi 08:47:36 09:51:24 Visit Roselia Silveira 63881.1.[address] 3.430.2.7 Hospit a .3.818979 l .8 2020-11-12 2020-11-12 Travel 1.2.840.1 1.2.833.136 5726 604442 Methodi 00:00:00 00:00:[address] 3.430.2.7 0.2.7.3.698 spita .3.744420 084.8 l .8 2020-10-23 2020-10-23 Office Sarai Navarro 1.2.840.1 [id number] 2100 [id number] Methodi 11:22:10 12:06:[address] 3.430.2.7 Hospit a .3.482750 l .8 2020-10-23 2020-10-23 Travel 1.2.840.1 1.2.998.423 2689 656932 Methodi 00:00:00 00:00:[address] 3.430.2.7 0.2.7.3.698 Ho spita .3.477686 084.8 l .8 2020-10-21 2020-10-21 Refill Tanner, 1.2.840.1 [id number] 57274 Methodi 00:00:00 00:00:[address] 3.430.2.7 Hospit a .3.293916 l .8 2020-10-20 2020-10-20 Refill Tanner, 1.2.840.1 [id number] 68103 Methodi 00:00:00 00:00:[address] 3.430.2.7 Hospit a .3.245807 l .8 2020-10-15 2020-10-15 Refill Sarai Navarro 1.2.840.1 [id number] 2099 [id number] Methodi 00:00:00 00:00:[address] 3.430.2.7 Hospit a .3.208880 l .8 2020-09-09 2020-09-09 Office Sarai Navarro 1.2.840.1 [id number] 2099 [id number] Methodi 11:14:36 12:03:[address] 3.430.2.7 Hospit a .3.989363 l .8 2020-09-09 2020-09-09 Refill Sarai Navarro 1.2.840.1 [id number] 2099 035229 Methodi 00:00:00 00:00:[address] 3.430.2.7 Hospit a .3.736105 l .8 2020-09-09 2020-09-09 Travel 1.2.840.1 1.2.099.615 6580 701867 Methodi 00:00:00 00:00:[address] 3.430.2.7 0.2.7.3.698 Ho spita .3.933447 084.8 l .8 2020-08-26 2020-08-26 Office Helder Stockton 1.2.840.1 [id number] 356 [id number] Methodi 15:10:23 15:30:36 Visit Ricardo 08979.1.[address] 3.430.2.7 Hospit a .3.688651 l .8 2020-08-26 2020-08-26 Office Tanner, 1.2.840.1 [id number] Methodi 12:41:22 14:14:37 Visit Roselia Silveira 10396.1.[address] 3.430.2.7 Hospit a .3.916939 l .8 2020-08-26 2020-08-26 Travel 1.2.840.1 1.2.648.770 4102 130366 Methodi 00:00:00 00:00:[address] 3.430.2.7 0.2.7.3.698 Ho spita .3.168510 084.8 l .8 2020-08-25 2020-08-25 Telephone Mackey, 1.2.840.1 [id number] 982 [id number] Methodi 00:00:00 00:00:[address] 3.430.2.7 Hospit a .3.374268 l .8 2020-08-25 2020-08-25 Travel 1.2.840.1 1.2.705.184 3830 443725 Methodi 00:00:00 00:00:[address] 3.430.2.7 0.2.7.3.698 Ho spita .3.623860 084.8 l .8 2020-08-21 2020-08-21 Refill Tanner, 1.2.840.1 [id number] 54341 Methodi 00:00:00 00:00:[address] 3.430.2.7 Hospit a .3.843371 l .8 2020-07-16 2020-07-16 Office Panda, 1.2.840.1 [id number] 4683 Methodi 12:29:11 13:29:10 Visit Amarjit MagdalenoFernando 96738.1.[address] 3.430.2.7 Hospit a .3.906517 l .8 2020-07-15 2020-07-15 Lab Tanner, 1.2.840.1 [id number] 04072 68119 Methodi 09:55:22 10:00:22 [address] 3.430.2.7 Hospit a .3.797695 l .8 2020-07-15 2020-07-15 Office Tanner, 1.2.840.1 [id number] 05642 71222 Methodi 08:55:50 09:52:05 Visit Rsoelia Silveira 93536.1.[address] 3.430.2.7 Hospit a .3.100071 l .8 2020-07-15 2020-07-15 Travel 1.2.840.1 1.2.110.678 3834 749731 Methodi 00:00:00 00:00:[address] 3.430.2.7 0.2.7.3.698 [facility] 084.8 l .8 2020-07-12 2020-07-12 Refill [facility], 1.2.840.1 [id number] 13961 Methodi 00:00:00 00:00:[address] 3.430.2.7 Hospit a .3.772744 l .8 2020-07-08 2020-07-08 Clinical 1.2.840.1 [id number] 88562 Methodi 16:39:14 16:44:[address] 3.430.2.7 Hospit a .3.820521 l .8 2020-07-08 2020-07-08 Office Helder Stockton 1.2.840.1 [id number] 518 [id number] Methodi 13:45:53 14:17:24 Visit B[address] 41314.1.[address] 3.430.2.7 Hospit a .3.098026 l .8 2020-07-08 2020-07-08 Refill Tanner, 1.2.840.1 [id number] 20617 72362 Methodi 00:00:00 00:00:[address] 3.430.2.7 Hospit a .3.663621 l .8 2020-07-08 2020-07-08 Travel 1.2.840.1 1.2.788.125 1298 051247 Methodi 00:00:00 00:00:[address] 3.430.2.7 0.2.7.3.698 Ho spita .3.173633 084.8 l .8 2020-06-30 2020-06-30 [facility], 1.2.840.1 [id number] 2 [id number] Methodi 09:20:00 12:45:00 Encounter Harshinie 85890.1.[address] [facility] papito .3.072563 l .8 2020-06-30 2020-06-30 Anesthesia Juan Mcgarry 1.2.840.1 [id number] Methodi 11:34:00 12:08:[address] 3.430.2.7 Hospit a .3.801438 l .8 2020-06-30 2020-06-30 Surgery [facility], 1.2.840.1 [id number] 21 [id number] Methodi 10:30:00 11:00:[address] Chamindika 3.430.2.7 Hos papito .3.357713 l .8 2020-06-30 2020-06-30 Travel 1.2.840.1 1.2.275.739 4024 409415 Methodi 00:00:00 00:00:[address] 3.430.2.7 0.2.7.3.698 Ho spita .3.561954 084.8 l .8 2020-06-25 2020-06-25 Lab Jesus Manuelsirishaguille, 1.2.840.1 [id number] Methodi 12:34:42 12:49:[address] Chamindika 3.430.2.7 Hos papito .3.160854 l .8 2020-06-25 2020-06-25 Treatment Helder Stockton 1.2.840.1 [id number] 5 [id number] Methodi 11:17:26 12:17:26 Ernesto Blas 87894.1.[address] 3.430.2.7 Hospit a .3.364360 l .8 2020-06-25 2020-06-25 Travel 1.2.840.1 1.2.162.373 7617 476557 Methodi 00:00:00 00:00:[address] 3.430.2.7 0.2.7.3.698 Ho spita .3.080903 084.8 l .8 2020-06-23 2020-06-23 Treatment Helder Stockton 1.2.840.1 [id number] 9 [id number] Methodi 09:11:15 10:11:15 Ernesto Blas 13673.1.[address] 3.430.2.7 Hospit a .3.393978 l .8 2020-06-23 2020-06-23 Plan of 1.2.840.1 [id number] 157479 1012 Methodi 00:00:00 00:00:[address] Documentat 3.430.2.7 Hos papito ion .3.353864 l .8 2020-06-23 2020-06-23 Travel 1.2.840.1 1.2.856.580 1243 346538 Methodi 00:00:00 00:00:[address] 3.430.2.7 0.2.7.3.698 Ho spita .3.285710 084.8 l .8 2020-06-19 2020-06-19 Office Viky Stocktony 1.2.840.1 [id number] 644 [id number] Methodi 14:55:33 16:25:00 [address] B. 64231.1.[address] 3.430.2.7 Hospit a .3.322938 l .8 2020-06-19 2020-06-19 Travel 1.2.840.1 1.2.236.532 8350 296936 Methodi 00:00:00 00:00:[address] 3.430.2.7 0.2.7.3.698 Ho spita .3.690127 084.8 l .8 2020-06-13 2020-06-13 Travel 1.2.840.1 1.2.931.322 5321 815118 Methodi 00:00:00 00:00:[address] 3.430.2.7 0.2.7.3.698 Ho spita .3.267902 084.8 l .8 2020-06-12 2020-06-12 Office Viky Stocktony 1.2.840.1 [id number] 296 [id number] Methodi 09:38:08 10:00:27 Visit B. 08327.1.[address] 3.430.2.7 Hospit a .3.477611 l .8 2020-06-11 2020-06-11 Travel 1.2.840.1 1.2.806.669 5394 571754 Methodi 00:00:00 00:00:[address] 3.430.2.7 0.2.7.3.698 Ho spita .3.523559 084.8 l .8 2020-06-09 2020-06-09 Telemedici Sarai Navarro 1.2.840.1 [id number] 2 [id number] Methodi 11:43:45 13:43:[address] 3.430.2.7 Hospit a .3.819053 l .8 2020-06-04 2020-06-04 Travel 1.2.840.1 1.2.436.193 9820 496825 Methodi 00:00:00 00:00:[address] 3.430.2.7 0.2.7.3.698 Ho spita .3.696958 084.8 l .8 2020-06-02 2020-06-02 Office Helder Stockton 1.2.840.1 [id number] 284 [id number] Methodi 11:17:09 11:41:14 Visit B. 00155.1.[address] 3.430.2.7 Hospit a .3.902645 l .8 2020-06-02 2020-06-02 Travel 1.2.840.1 1.2.275.412 6267 207487 Methodi 00:00:00 00:00:[address] 3.430.2.7 0.2.7.3.698 Ho spita .3.632616 084.8 l .8 2020-05-21 2020-05-21 Travel 1.2.840.1 1.2.325.942 1977 975141 Methodi 00:00:00 00:00:[address] 3.430.2.7 0.2.7.3.698 Ho spita .3.003665 084.8 l .8 2020-05-20 2020-05-20 Refill Sarai Navarro 1.2.840.1 [id number] 2099 774159 Methodi 00:00:00 00:00:[address] 3.430.2.7 Hospit a .3.313519 l .8 2020-05-16 2020-05-16 Travel 1.2.840.1 1.2.281.008 3136 416736 Methodi 00:00:00 00:00:[address] 3.430.2.7 0.2.7.3.698 Ho spita .3.248771 084.8 l .8 2020-05-14 2020-05-14 Helder Andrews 1.2.840.1 [id number] 480 [id number] Methodi 00:00:00 00:00:00 Only B. 15659.1.[address] 3.430.2.7 Hospit a .3.211194 l .8 2020-05-13 2020-05-13 Helder Herrera 1.2.840.1 [id number] 456 [id number] Methodi 14:18:08 15:02:43 Visit B. 54713.1.[address] 3.430.2.7 Hospit a .3.635344 l .8 2020-05-12 2020-05-12 Travel 1.2.840.1 1.2.156.578 3048 833248 Methodi 00:00:00 00:00:[address] 3.430.2.7 0.2.7.3.698 Ho spita .3.592210 084.8 l .8 2020-05-05 2020-05-05 Travel 1.2.840.1 1.2.935.190 6771 623668 Methodi 00:00:00 00:00:[address] 3.430.2.7 0.2.7.3.698 Ho spita .3.427690 084.8 l .8 2020-04-22 2020-04-22 Helder Herrera 1.2.840.1 [id number] 305 [id number] Methodi 15:47:28 16:20:11 Visit B. 49554.1.[address] 3.430.2.7 Hospit a .3.978895 l .8 2020-04-22 2020-04-22 Travel 1.2.840.1 1.2.411.368 0729 845882 Methodi 00:00:00 00:00:[address] 3.430.2.7 0.2.7.3.698 Ho spita .3.231148 084.8 l .8 2020-04-14 2020-04-14 Office Helder Stockton 1.2.840.1 [id number] 950 [id number] Methodi 15:20:03 15:50:36 Visit B. 59643.1.[address] 3.430.2.7 Hospit a .3.732235 l .8 2020-04-14 2020-04-14 Travel 1.2.840.1 1.2.233.055 9796 351652 Methodi 00:00:00 00:00:[address] 3.430.2.7 0.2.7.3.698 Ho spita .3.593955 084.8 l .8 2020-04-10 2020-04-10 Telephone Arash, 1.2.840.1 [id number] 21 [id number] Methodi 00:00:00 00:00:[address] 3.430.2.7 Hospit a .3.621556 l .8 2020-04-09 2020-04-09 Refill Tanner, 1.2.840.1 [id number] 23199 58657 Methodi 00:00:00 00:00:00 [address].1.[address] 3.430.2.7 Hospit a .3.604737 l .8 2020-04-08 2020-04-08 Office Whitney, 1.2.840.1 [id number] 28546 48175 Methodi 11:02:46 11:59:04 Visit Landry Becerra 71518.1.[address] 3.430.2.7 Hospit a .3.614875 l .8 2020-04-08 2020-04-08 Orders Mahin, 1.2.840.1 [id number] 158510 8136 Methodi 00:00:00 00:00:00 Only Monica 99553.1.[address] Melodie 3.430.2.7 Hospi ta .3.926233 l .8 2020-04-08 2020-04-08 Orders Narendra, 1.2.840.1 [id number] 75724 Methodi 00:00:00 00:00:00 Only Kimmy 17962.1.[address] 3.430.2.7 Hospit a .3.824057 l .8 2020-04-08 2020-04-08 Orders Arash, 1.2.840.1 [id number] 2099 [id number] Methodi 00:00:00 00:00:00 Only Irish 17646.1.[address] 3.430.2.7 Hospit a .3.038165 l .8 2020-04-08 2020-04-08 Travel 1.2.840.1 1.2.571.942 7869 295581 Methodi 00:00:00 00:00:[address] 3.430.2.7 0.2.7.3.698 Ho spita .3.446309 084.8 l .8 2020-04-03 2020-04-03 Office Ady, 1.2.840.1 [id number] 4164 Methodi 09:52:58 11:37:15 Visit Vivian 52045.1.[address] 3.430.2.7 Hospit a .3.729262 l .8 2020-04-03 2020-04-03 Telephone Arash, 1.2.840.1 [id number] Methodi 00:00:00 00:00:[address] 3.430.2.7 Hospit a .3.113309 l .8 2020-04-03 2020-04-03 Travel 1.2.840.1 1.2.716.572 1655 914230 Methodi 00:00:00 00:00:[address] 3.430.2.7 0.2.7.3.698 Ho spita .3.291559 084.8 l .8 2020-04-02 2020-04-02 Telephone Loretta, 1.2.840.1 [id number] 2099 [id number] Methodi 00:00:00 00:00:[address] Marilyn 3.430.2.7 Hospit a .3.354916 l .8 2020-03-31 2020-03-31 Hospital Helder Stockton 1.2.840.1 [id number] Methodi 06:05:00 13:45:00 Encounter Floyd. 15622.1.[address] 3.430.2.7 Hospit a .3.887063 l .8 2020-03-31 2020-03-31 Anesthesia Pierce, 1.2.840.1 [id number] Methodi 07:15:00 11:27:00 Event Ryley 13714.1.[address] Deyvi 3.430.2.7 Hospit a .3.403006 l .8 2020-03-31 2020-03-31 Surgery Mahin Helder 1.2.840.1 [id number] 003 [id number] Methodi 07:15:00 10:45:[address] 3.430.2.7 Hospit a .3.807872 l .8 2020-03-31 2020-03-31 Orders Arash, 1.2.840.1 [id number] 2099 [id number] Methodi 00:00:00 00:00:00 Only Irish 56590.1.[address] 3.430.2.7 Hospit a .3.678178 l .8 2020-03-31 2020-03-31 Travel 1.2.840.1 1.2.592.513 8316 230655 Methodi 00:00:00 00:00:[address] 3.430.2.7 0.2.7.3.698 Ho spita .3.700781 084.8 l .8 2020-03-28 2020-03-28 Lab Helder [place] 1.2.840.1 [id number] 460 [id number] Methodi 10:36:27 10:51:[address] 3.430.2.7 Hospit a .3.441488 l .8 2020-03-28 2020-03-28 Travel 1.2.840.1 1.2.550.057 5182 751972 Methodi 00:00:00 00:00:[address] 3.430.2.7 0.2.7.3.698 Ho spita .3.831968 084.8 l .8 2020-03-27 2020-03-27 Coffeen Kedar, 1.2.840.1 [id number] 2099 [id number] Methodi 00:00:00 00:00:[address] 3.430.2.7 Hospit a .3.104122 l .8 2020-03-25 2020-03-25 Office Helder [place] 1.2.840.1 [id number] 170 [id number] Methodi 09:30:25 11:57:02 [address] B[address] 34573.1.[address] 3.430.2.7 Hospit a .3.027317 l .8 2020-03-25 2020-03-25 Travel 1.2.840.1 1.2.109.193 2700 570143 Methodi 00:00:00 00:00:[address] 3.430.2.7 0.2.7.3.698 Ho spita .3.317270 084.8 l .8 2020-03-21 2020-03-[address] [facility], 1.2.840.1 [id number] 2099 [id number] Methodi 00:00:00 00:00:00 Only Historical 06144.1.1 898 s t 3.430.2.7 Hospit a .3.625454 l .8 2020-03-19 2020-03-19 Travel 1.2.840.1 1.2.186.504 5045 786329 Methodi 00:00:00 00:00:[address] 3.430.2.7 0.2.7.3.698 Ho spita .3.464111 084.8 l .8 2020-03-19 2020-03-19 Orders Amaratungderrick, 1.2.840.1 [id number] Methodi 00:00:00 00:00:00 Only Piyushinie 72863.1.[address] Chamindika 3.430.2.7 Hos papito .3.095475 l .8 2020-03-17 2020-03-17 Orders Arash, 1.2.840.1 [id number] 2099 [id number] Methodi 00:00:00 00:00:00 Only Irish 13311.1.[address] 3.430.2.7 Hospit a .3.241607 l .8 2020-03-17 2020-03-17 Prep for Arash, 1.2.840.1 [id number] 423 [id number] Methodi 00:00:00 00:00:00 Surgery Irish 12138.1.[address] 3.430.2.7 Hospit a .3.741312 l .8 2020-03-14 2020-03-14 Office Tanner, 1.2.840.1 [id number] 13481 90445 Methodi 09:35:50 10:06:41 Visit Roselia Silveira 23275.1.[address] 3.430.2.7 Hospit a .3.996481 l .8 2020-03-14 2020-03-14 Travel 1.2.840.1 1.2.613.562 1288 611465 Methodi 00:00:00 00:00:[address] 3.430.2.7 0.2.7.3.698 Ho spita .3.820296 084.8 l .8 2020-03-13 2020-03-13 Office Sarai Navarro 1.2.840.1 [id number] 2099 787071 Methodi 10:33:53 11:19:[address] 3.430.2.7 Hospit a .3.102835 l .8 2020-03-12 2020-03-12 [facility] Mira Mcfadden 1.2.840.1 [id number] 237 [id number] Methodi 09:00:00 23:59:00 Encounter Glenroy 96157.1.1 036 s t 3.430.2.7 Hospit a .3.296861 l .8 2020-03-12 2020-03-12 Office Mira Mcfadden 1.2.840.1 [id number] 2099 538296 Methodi 09:41:46 14:41:17 Visit Glenroy Chairez50.1.[address] 3.430.2.7 Hospit a .3.390550 l .8 2020-03-12 2020-03-12 [facility] 1.2.840.1 1.2.215.780 3173 014600 Methodi 00:00:00 00:00:[address] 3.430.2.7 0.2.7.3.698 Ho spita .3.058068 084.8 l .8 2020-03-10 2020-03-10 Orders Brynn Quintero 1.2.840.1 [id number] 21 [id number] Methodi 00:00:00 00:00:[address] 3.430.2.7 Hospit a .3.859591 l .8 2020-03-05 2020-03-05 Lab Tanner 1.2.840.1 [id number] 17977 98572 Methodi 14:27:46 14:32:46 [address]esis Silve[address] 04012.1.[address] 3.430.2.7 Hospit a .3.850910 l .8 2020-02-27 2020-02-27 Sadiq Antoine 1.2.840.1 [id number] 2099 457597 Methodi 00:00:00 00:00:00 Only Irish 40471.1.[address] 3.430.2.7 Hospit a .3.572963 l .8 2020-02-26 2020-02-26 Telephone Arash 1.2.840.1 [id number] 21 [id number] Methodi 00:00:00 00:00:[address] 3.430.2.7 Hospit a .3.969395 l .8 2020-02-22 2020-02-22 Office Helder Stockton 1.2.840.1 [id number] 543 [id number] Methodi 15:19:27 16:58:04 Visit Floyd. 51749.1.[address] 3.430.2.7 Hospit a .3.293471 l .8 2020-02-22 2020-02-22 Travel 1.2.840.1 1.2.248.908 6787 [id number] Methodi 00:00:00 00:00:[address] 3.430.2.7 0.2.7.3.698 Ho spita .3.574727 084.8 l .8 2020-02-14 2020-02-14 Sadiq Navarro Sarai 1.2.840.1 [id number] 2099 [id number] Methodi 00:00:00 00:00:[address] 3.430.2.7 Hospit a .3.592743 l .8 2020-02-11 2020-02-11 Travel 1.2.840.1 1.2.552.664 9859 [id number] Methodi 00:00:00 00:00:[address] 3.430.2.7 0.2.7.3.698 Ho spita .3.254385 084.8 l .8 2020-02-04 2020-02-04 Travel 1.2.840.1 1.2.545.023 2045 993125 Methodi 00:00:00 00:00:[address] 3.430.2.7 0.2.7.3.698 Ho spita .3.875182 084.8 l .8 2020-01-25 2020-01-25 Office Helder Stockton 1.2.840.1 [id number] 156 [id number] Methodi 10:27:28 11:04:10 [address]131.1.[address] 3.430.2.7 Hospit a .3.640671 l .8 2020-01-25 2020-01-25 Travel 1.2.840.1 1.2.832.854 9953 [id number] Methodi 00:00:00 00:00:[address] 3.430.2.7 0.2.7.3.698 Ho spita .3.700812 084.8 l .8 2020-01-22 2020-01-22 Travel 1.2.840.1 1.2.016.600 3425 125613 Methodi 00:00:00 00:00:[address] 3.430.2.7 0.2.7.3.698 Ho spita .3.533902 084.8 l .8 Results Test Description Test Time Test Comments Results Result Comments Source Comprehensive metabolic panel 2020-11-14 01:08:00 Test Item Value Reference Range Interpretation Comme nts Glucose (test code = 112 mg/dL 65-99 H Fasting 2345-7) reference inter darinel For someone without known diabetes, a glu cose valuebetween 10 0 and 125 mg/dL is consis tent withprediabetes and should be confi rmed with afollow-up test . BUN (test code = 3094-0) 19 mg/dL 7-25 Creatinine (test code = 1.00 mg/dL 0.60-0.93 H For patients >49 years of 2160-0) age, the refere nce limitfor Creati nine is approximately 1 3% higher for peopleident ified as -Love n. EGFR Non-Afr. Dominican See_Comment L [Aut omated message] The (test code = 2775) system [facility] generated this result tra nsmitted reference range : > OR = 60 mL/min/1.73m 2. The reference range was not used to interpr et this result as normal/abnormal . EGFR See_Comment [Auto mated message] The (test code = 2774) system wh ich generated this result tra nsmitted reference range : > OR = 60 mL/min/1.73m 2. The reference range was not used to interpr et this result as normal/abnormal . BUN/creatinine ratio See_Comment [Autom ated message] The (test code = 3097-3) system which generated this result tra nsmitted reference range : 6 - 22 (calc). The ref erence range was not u sed to interpret this result as normal/abnormal . Sodium (test code = 138 mmol/L 534-043 6288-2) Potassium (test code = 4.1 mmol/L 3.5-5.3 2823-3) Chloride (test code = 104 mmol/L 98-110 2075-0) CO2 (test code = 8-9) 23 mmol/L 20-32 Calcium (test code = 10.0 mg/dL 8.6-10.4 28636-0) Protein (test code = 7.1 g/dL 6.1-8.1 2885-2) Albumin, S (test code = 4.6 g/dL 3.6-5.1 1751-7) Globulin, total (test See_Comment [Auto mated message] The code = 98893-1) system which generated this result tra nsmitted reference range : 1.9 - 3.7 g/dL (calc) . The reference range was not used to interpr et this result as normal/abnormal . Albumin/globulin ratio See_Comment [Aut omated message] The (test code = 1759-0) system which generated this result tra nsmitted reference range : 1.0 - 2.5 (calc). The reference range was not u sed to interpret this result as normal/abnormal . Total bilirubin (test 0.4 mg/dL 0.2-1.2 code = 1974-2) Alkaline phosphatase 68 U/L 37-153 (test code = 6768-6) AST (test code = 1920-8) 17 U/L 10-35 ALT (test code = 1742-6) 13 U/L 6-29 RAC (test code = RAC) Performing Organization Information: Site ID: RGA [facility] Address: [address] [place] [address] Director: Patrick Robb Lab Interpretation (test Abnormal code = 40071-7) [facility] [id number] 01:08:00 Test Item Value Reference Range Interpretation Comments Cholesterol, total 166 mg/dL <200 (test code = 2093-3) HDL cholesterol 61 mg/dL See_Comment [Automated (test code = 2085-9) message ] The system which generated this result transmitted reference range : > OR = 50. The reference range was not used to interpret this result as normal/abnormal . Triglycerides (test 172 mg/dL <150 H code = 2571-8) LDL cholesterol mg/dL (calc) Reference ra nge: calculated (test <100 Desira ble code = 58617-2) range <100 m g/dL for primary prevention; <7 0 mg/dL for patients with C HD or diabetic patients with > or = 2 CHD risk factors. LDL-C is now calculated using the Anastacio-Markell calculation, which is a validated novel method providin g better accuracy than the Friedewald equation in the estimation of LDL-C. Anastacio S S et al. HARRISON. 2013;310(19): 3412-0751 (http://educati on .Kaai .com/faq/XBW868 ) Cholesterol/HDL See_Comment [Automated ratio (test code = message] The 9830-1) system which generated this result transmitted reference range : <5.0 (calc). Th e reference range was not used to interpret this result as normal/abnormal . Non-HDL cholesterol See_Comment For jamie ents with (test code = diabetes plus 1 03076-4) major ASCVD ris k factor, treatin g to a non-HDL-C goal of <100 mg/dL (LDL-C of <70 mg/dL) is considered a therapeutic option. [Automated message] The system which generated this result transmitted reference range : <130 mg/dL (calc). The reference range was not used to interpret this result as normal/abnormal . RAC (test code = Performing RAC) Organization Information: Site ID: RGA [facility] Address: [address] [place] [address] Director: Patrick Robb Lab Interpretation Abnormal (test code = 36497-2) [facility] Center[facility]em[facility] [id number] 01:08:00 Test Item Value Reference Interpretation Comments Range Hemoglobin A1C See_Comment H For someone brigette mora (test code = known diabetes, a 4548-4) hemoglobin A1c value between 5.7% an d 6.4% is consist ent withprediabetes and should be confi rmed with a follow-u p test. For someo ne with known diab etes, a value <7%indicates that their diabetes is well controlled . S0fwmbzfwn shou ld be individualized based on duration ofdiabetes, age , comorbid condit ions, and otherconsiderat ions. This assay resu lt is consistent with an increased risko f diabetes. Currderrick ntly, no consensus ex ists regarding use ofhemoglobin A1 c for diagnosis of diabetes for children. [Automated mess age] The system [employer] generated this result transmit wilberto reference range : <5.7 % of total Hgb. The reference r litzy was not used to interpret this result as normal/abnormal . RAC (test code = Performing RAC) Organization Information: Site ID: [facility] Name[facility] Address: [address] [place] [address] Director: Patrick Robb Lab Interpretation Abnormal (test code = 85759-7) [facility] CenterMagnesium [id number] 01:08:00 Test Item Value Reference Range Interpretation Comments Magnesium (test code 2.4 mg/dL 1.5-2.5 = 77725-1) RAC (test code = RAC) Performing Organization Information: Site ID: [facility] Name: [facility] Address: [address] [place] [address] Director: Patrick Robb [facility] CenterT4, [id number] 01:08:00 Test Item Value Reference Range Interpretation Comments T4, free (test code 1.2 ng/dL 0.8-1.8 = 3024-7) RAC (test code = Performing Organization RAC) Information: Site ID: [facility] Name: [facility] Address: [address] [place] [address] Director: Patrick L [facility] CenterThyroid stimulating [id number] 01:08:00 Test Item Value Reference Range Interpretation Comments TSH (test See_Comment [Automated mes almita] code = The system [facility] h 3016-3) generated this result transmit wilberto reference range : 0.40 - 4.50 mIU /L. The reference r litzy was not used to interpret this result as normal/abnormal . RAC (test Performing code = RAC) Organization Information: Site ID: ZARA Name: [facility] Address: [address] [place] [address] Director: Patrick Putnam [facility] with platelet and [id number] 01:08:00 Test Item Value Reference Range Interpretation Comments WBC (test code = See_Comment [Automated 1290-2) message] The system which generated this result transmitted reference range : 3.8 - 10.8 Thousand/uL. Th e reference range was not used to interpret this result as normal/abnormal . RBC (test code = See_Comment [Automated 789-8) message] The system which generated this result transmitted reference range : 3.80 - 5.10 Million/uL. The reference range was not used to interpret this result as normal/abnormal . HGB (test code = 13.5 g/dL 11.7-15.5 718-7) HCT (test code = 39.0 % 35.0-45.0 4544-3) MCV (test code = 87.4 fL 80.0-100.0 787-2) MCH (test code = 30.3 pg 27.0-33.0 785-6) MCHC (test code = 34.6 g/dL 32.0-36.0 786-4) RDW (test code = 13.0 % 11.0-15.0 788-0) Platelet count See_Comment [Automated (test code = message] The 777-3) system which generated this result transmitted reference range : 140 - 400 Thousand/uL. Th e reference range was not used to interpret this result as normal/abnormal . MPV (test code = 11.3 fL 7.5-12.5 776-5) Neutrophils, See_Comment [Automated absolute (test message] The code = 751-8) system which generated this result transmitted reference range : 1,500 - 7,800 cells/uL. The reference range was not used to interpret this result as normal/abnormal . Lymphocytes, See_Comment [Automated absolute (test message] The code = 731-0) system which generated this result transmitted reference range : 850 - 3,900 cells/uL. The reference range was not used to interpret this result as normal/abnormal . Monocytes, See_Comment [Automated absolute (test message] The code = 742-7) system which generated this result transmitted reference range : 200 - 950 cells/uL. The reference range was not used to interpret this result as normal/abnormal . Eosinophils, See_Comment [Automated absolute (test message] The code = 711-2) system which generated this result transmitted reference range : 15 - 500 cells/uL. The reference range was not used to interpret this result as normal/abnormal . Basophils, See_Comment [Automated absolute (test message] The code = 704-7) system which generated this result transmitted reference range : 0 - 200 cells/u L. The reference range was not used to interpr et this result as normal/abnormal . Neutrophils (test 46.8 % code = 770-8) Lymphocytes (test 40.3 % code = 736-9) Monocytes (test 9.2 % code = 5905-5) Eosinophils (test 3.0 % code = 713-8) Basophils + RC 0.7 % (test code = 706-2) RAC (test code = Performing RAC) Organization Information: Site ID: RGA [facility] Address: [address] [place] [address] Director: Patrick Robb [facility] CenterVitamin D 25 hydroxy [id number] 01:08:00 Test Item Value Reference Range Interpretation Comments Vitamin D, 36 ng/mL 30-100 Vitamin D Statu s 25-hydroxy 25-OH Kendra min (test code = D: Deficiency: 1989-) < 20 ng/mLInsufficie ncy: 20 - 29 ng/mLOptimal: > or = 30 ng/mL For 25-OH Vitamin D testi ng on patients on D2-supplementat ion and patients fo r whom quantitati on of D2 and D3 fractions is required, the QuestAssureD(TM )25- OH VIT D, (D2,D 3), LC/MS/MS is recommended: or byron code 01864 (patients >2yrs).See Note 1 Note 1 For additional information, pl ease refer to http://HealthLinkNowatio nLogim Solutions. [employer]/ faq/FSB281 (Thi s link is being provided for informational/e duca tional purposes only.) RAC (test code Performing = RAC) Organization Information: Site ID: ZARA [facility] Address: [address] [place] [address] Director: Patrick Putnam [facility] Systemroalbumin / creatinine urine [id number] 01:08:00 Test Item Value Reference Range Interpretation Comments Creatinine, 141 mg/dL 20-275 urine, random (test code = 2161-8) Microalbumin, 1.5 mg/dL See Note: Reference Rang e: urine (test Reference Range Not code = established 22648-1) Microalbumin/ See_Comment The ADA defin es creatinine abnormalities i n ratio (test albuminexcretio n as code = follows: Catego ry 9318-7) Result (mcg/ mg creatinine) Nor mal <30Microalbumin uria 30-299 Cli nical albuminuria > OR = 300 The ADA rec ommends that at least t wo of threespecimens collected withi n a 3-6 month period beabnormal befo re considering a p atient to bewithin a diagnostic rosario kevin. [Automated mess age] The system [employer] generated this result transmitted ref erence range: <30 mcg/ mg creat. The refe rence range was not u sed to interpret this result as normal/abnor mal. RAC (test Performing code = RAC) Organization Information: Site ID: DIYAA [facility] Address: [address] [place] [address] Director: Patrick Robb [facility] C [id number] 12:09:00 Test Item Value Reference Range Interpretation Comments Hepatitis C Ab <0.1 See_Comment (test code = 73067-3) Negative: < 0.8 Indetermi jesica: 0.8 - 0.9 Positive: > 0.9 The [facility] recomme nds that a positive HCV antibody result be followed up wit h a HCV Nucleic Aci d Amplification t est (177139). [Automated mess age] The system [employer] generated this result transmit wilberto reference range : 0.0 - 0.9 s/co rati o. The reference r litzy was not used to interpret this result as normal/abnormal . ARIADNE (test code = Performed at: 01 ARIADNE) - [facility] [address] [place], [place] [id number] Director: David Wade MD, Phone: [phone] [facility] [id number] 15:09:44 Test Item Value Reference Range Interpretation Comments Case number (test code = [id number]) Surgical pathology See link below for report (test code = PDF Lab Report [id number]) Result status (test code This is Final Report = [id number]) for [id number] [facility] CenterCOVID-19 qualitative [id number] 22:31:44 Test Item Value Reference Range Interpretation Comments Interpretation (test Negative results do code = 6375487) not preclude 2019-nCoV infection and should not be used as the sole basis for treatment or other patient management decisions. Negative results must be combined with clinical observations, patient history, and epidemiological information. COVID-19 qualitative Not-Detected Not-Detected RT-PCR result (test code = 69369-9) COVID-19 qualitative See link below for C ase Number: RT-PCR (test code = PDF Lab Report [id number]) [facility] knee [id number] 20:30:00Helder Stockton MD 06/19/2020 3:08 PMLeft knee OrthoviscPerformed by: Helder Stockton MDAuthorized by: Helder Stockton MD Consent given by: PatientSite marked: the procedure site was marked Timeout: prior to procedure the correct patient, procedure, and site was verified Indications: PainLocation: KneeSite: L kneePrep: patient was prepped and draped in usual sterile fashion Ultrasound guided?: No Needle size (left): 22 GLeft side approach: AnteromedialLeft side medications: 2 mL sodium hyaluronate (viscosup) 30 mg/2 mL; 2 mL bupivacaine 0.5 % (5 mg/mL)Left aspirate amount (ml): 0Patient tolerance (left): Patient tolerated the procedure well with no immediate complicationsMethodist HospitalLarge Joint Arthrocentesis: knee, L [id number] 15:30:00Helder Stockton MD 06/12/2020 9:53 AMLarge Joint Arthrocentesis: knee, L kneePerformed by: Helder Stockton MDAuthorized by: Helder Stockton MD Consent given by: PatientIndications: PainLocation: KneeSite: L kneeUltrasound guided?: No Needle size (left): 22 GLeft side approach: AnterolateralLeft side medications: 3 mL lidocaine 10 mg/mL (1 %); 2 mL sodium hyaluronate (viscosup) 30 mg/2 mLPatient tolerance (left): Patient tolerated the procedure well with no immediate complications [facility], [id number] 19:18:00 Test Item Value Reference Range Interpretation Comments Source (test LEFT KNEE code = 39812-9) Crystals, NONE SEEN NONE SEEN /HPF NO COLLECTION DATE fluid (test RECEIVED. WE SMITH VE code = 6825-4) USEDTHE DATE THE SPECIMEN WAS RE CEIVED BY [facility] THE COLLECTION DATE. IF THISIS INCOR RECT, PLEASE CONTACT CLIENT SERVICES.PHONE NUMBER: ARIADNE (test code FASTING: UNKNOWN = ARIADNE) RAC (test code Performing = RAC) Organization Information: Site ID: RGA [facility] Address: [address] [place] [address] Director: Patrick Robb [facility] knee cortisone [id number] 20:10:00Helder Stockton MD 05/13/2020 3:06 PMLeft knee cortisone injectionPerformed by: Helder Stockton MDAuthorized by: Helder Stockton MD Consent given by: PatientSite marked: the procedure site was marked Timeout: prior to procedure the correct patient, procedure, and site was verified Indications: PainLocation: KneeSite: L kneePrep: patient was prepped and draped in usual sterile fashion Ultrasound guided?: No Needle size (left): 25 G (25 gauge)Left side approach: AnteromedialLeft side medications: 6 mg betamethasone acetate & sodium phosphate 6 mg/mL; 2 mL bupivacaine 0.25 % (2.5 mg/mL)Left aspirate amount (ml): 23Left aspirate: Clear (william)Patient tolerance (left): Patient tolerated the procedure well with no immediate complicationsMethodist HospitalAnaerobic [id number] 21:07:00 Test Item Value Reference Range Interpretation Comments Anaerobic culture No anaerobic growth in isolate (test code = 72 hours. 635-3) ARIADNE (test code = ARIADNE) Performed at: [address] [place] [id number] Director: David Wade MD, Phone: [phone] [facility] CenterAerobic [id number] 21:07:00 Test Item Value Reference Range Interpretation Comments Aerobic culture No growth in 36 - 48 isolate (test code = hours. 634-6) ARIADNE (test code = ARIADNE) Performed at: [address] [place] [id number] Director: David Wade MD, Phone: [phone] [facility] CenterLar Joint Arthrocentesis: knee, L [id number] 16:40:00 Landry Olson MD 04/09/2020 8:13 AMLarge Joint Arthrocentesis: knee, L kneeConsent given by: patientSupporting DocumentationIndications: pain Procedure DetailsLocation: knee - L knee Left side:Needle size: 25 GApproach: anteriorLeft knee medications administered: 1 mL bupivacaine 0.25 % (2.5 mg/mL); 6 mg betamethasone acetate & sodium phosphate 6 mg/mL; 1 mL lidocaine 10 mg/mL (1 %)Patient tolerance: patient tolerated the procedure well with no immediate complicationsMethodi HospitalCrystal [id number] 17:33:25 Test Item Value Reference Range Interpretation Comments Crystal analysis specimen type Joint RT SHOULDER (test code = 1160) Monosodium urate (test code = None seen None seen 0396199) CPPD crystals (test code = 1135) None seen None seen [facility] CenterOuuetcpjHgjqwm1972-59-13 14:56:30Keny Shearer CRNA 03/31/2020 8:58 AMAirway Date/Time: 03/31/2020 7:32 AMPerformed by: Keny Shearer CRNAAuthorized by: Ryley Pierce MD Location: ORUrgency: ElectiveDifficult Airway: No Resident/TOOL MACHINE SHOP SUPERVISOR/AA: Keny Shearer CRNAPerformed by: resident/TOOL MACHINE SHOP SUPERVISOR/AAPreoxygenated with 100% O2: Yes C-spine Precautions Maintained Throughout: Yes Mask Ventilation: Not attemptedFinal Airway Type: Endotracheal airwayFinal Endotracheal Airway: ETTCuffed: Yes Technique Used:Video laryngoscopyDevices/Methods Used in Placement: Intubating styletInsertion Site: OralLaryngoscope Blade/Videolaryngoscope Blade Size: 3 (GLIDESCOPE)Cuff at minimum occlusion pressure: Yes Measured from: LipsETT to Lips (cm): 21Placement Verified by: CO2 detection, direct visualization and eq ual breath sounds Laryngoscopic view: Grade I - full view of glottisRapid Sequence Induction (RSI): Yes Number of Attempts at Approach: 1 ELECTIVE GLIDESCOPE. SMOOTH, ATRAUMATIC INTUBATIONMethodist HospitalArterial line 2020-03-31 13:59:02Ryley Pierce MD 03/31/2020 7:59 AMArterial linePerformed by: Ryley Pierce MDAuthorized by: Ryley Pierce MD Patient Location: ORStaff: Anesthesiologist: Ryley Pierce MD Performed by: AnesthesiologistPre-procedure: patient identified, IV checked, site and side verified, risks and benefits discussed, procedure verified, surgical consent complete, patient position confirmed, monitors and equipment checked, pre-op evaluation complete and timeoutperformed prior to procedure MSBT: antiseptic used, all elements of maximal sterile barrier technique followed, hand hygiene performed, cap/gown used by other personnel and solutions labeled Indications: Indications: hemodynamic monitoring Anesthesia: Anesthesia: GeneralProcedure Details: Arterial Line placement: Placed post induction Line placement site: RadialLine placement side: Left Arterial line gauge: 20 GNumber of attempts: 1 Ultrasound guidance used: Yes Post-procedure: Post-procedure: Sterile dressing applied Post procedure circulation, sensation, movement: Normal and unchanged Patient tolerance: Patient tolerated the procedure well with no immediate complicationsMethodist HospitalPeripheral [id number] 13:57:20Ryley Pierce MD 03/31/2020 7:58 AMPeripheral BlockPerformed by: Ryley Pierce MDAuthorized by: Ryley Pierce MD Patient Location: Block roomStart Time: 03/31/2020 7:10 AMEnd Time: 03/31/2020 7:15 AMReason for Block: at surgeon's request, post-op pain management, procedure for pain Staff: Anesthesiologist: Ryley Pierce MD Performed by: Anesth esiologistPreprocedure: patient identified, IV checked, site and side verified, risks and benefits discussed, procedure verified, surgical consent complete, patient position confirmed, monitors and equipment checked, pre-op evaluation complete, site marked and timeout performed prior to procedure Peripheral Nerve Block: Patient Position: Supine Prep: ChloraPrep Monitoring: Blood pressure monitoring, continuous pulse oximetry and heart rateBlock Type: Brachial plexus and interscaleneLaterality: RightInjection Technique: Catheter insertionProcedures: ultrasound guided Ultrasound documentation: Printed/placed in chartLocal Infiltration (See MAR for details): LidocaineNeedle: Needle Type: Anabella Needle Gauge: 19 G Needle Length: 10 cm Catheter Size: 20 GAssessment: InjectionAssessment: Visualized needle/local anesthetic surrounding nerve, visualized pertinent vascular stru ctures and nerves, needle tip visualized at all times during injection of medication, intermittent aspiration during local anesthetic administration and no symptoms of intraneural/intravenous injection Paresthesia Pain: None Heart Rate Change: No Slow Fractionated Injection: Yes Block outcome: No apparent complications, patient comfortable and patient tolerated procedure well [facility]XR Cervical Spine Ap Lateral Flexion And [id number] 15:36:59EXAMINATION: XR CERVICAL SPINE AP LATERAL FLEXION AND EXTENSION CLINICAL HISTORY: Z98.1 Arthrodesis status, S P ACDF C3-5 COMPARISON: 06/28/2019. IMPRESSION: 5 views of the lumbar spine including dynamic lateral radiographs are submitted. ACDF is again noted involving C3-C5 with anterior plate and sc rews. No hardware failure loosening is seen. There is no significant change in alignment on dynamic lateral radiographs. Minimal degenerative changes are again noted. The prevertebral soft tissues are unremarkable. [facility]B-[id number] Interface, Radiology Results Incoming - 03/12/2020 9:40 AM CST EXAMINATION: XR CERVICAL SPINE AP LATERAL FLEXION AND EXTENSIONCLINICAL HISTORY: Z98.1 Arthrodesis status, S P ACDF C3-5COMPARISON: 06/28/2019.IMPRESSION:5 views of the lumbar spine including dynamic lateral radiographs are submitted.ACDF is again noted involving C3-C5 with anterior plate and screws.No hardware failure loosening is seen.There is no significant change in alignment on dynamic lateral radiographs.Minimal degenerative changes are again noted.The prevertebral soft tissues are unremarkable.[facility]-[id number] Hermann Southwest HospitalCT-GLUCOSE [id number] 17:46:00 Test Item Value Reference Range Interpretation Comments POC-GLUCOSE METER 144 mg/dL 70-110 H TESTED AT [place] [address] ([facility]) (test code = ANDREA Saavedra [place] [address]) [address] EEG AWAKE AND [id number] 16:04:00Reason for exam:->To loof for any epileptiform discharges.DATE OF TEST: 06/13/17 DATE OF REPORT 06/13/17 ACC: [id number] Start time: 1503pm Stop time: 1524pm ICD-10: R56.9 CPT Code: 96918 HISTORY: 67 yo F w/ occasional episodes [...] rhythm was seen that was symmetric and gordon ctive to eye opening. Diffuse excess beta activity is observed. Drowsiness was characterized by alpha attenuation and increased frontocentral theta, vertex sharp transients and POSTS.The bulk of this EEG captured stage 2 sleep, characterized by symmetric sleep spindles and K-complexes with symmetric b ackground slowing. HV: Hyperventilation was not performed. PHOTIC STIMULATION: Flash stimulation was not done. IMPRESSION: Normal Awake and Asleep EEG CLINICAL CORRELATION: An EEG without epileptiform discharges does not exclude the possibility of epilepsy. If the clinical suspicion of epilepsy remains, consider additional EEG recordings. Marsha Fish M.D. Neurophysiology Fellow Rosy Au [facility] Epilepsy/Neurophysiology Attending POCT- GLUCOSE [id number] 12:26:00 Test Item Value Reference Range Interpretation Comments POC-GLUCOSE METER 87 mg/dL 70-110 TESTED AT [facility] 67[address] (BEAKER) (test code = [place] [address]38) MR, BRAIN, WITHOUT [id number] 12:06:00Reason for exam:->Ischemic Stroke EvaluationFINAL REPORT MRI [...] vascular structures. The sellar and pineal regions, c raniocervical junction, orbits, face, and skull base are without worrisome finding. IMPRESSION: Unremarkable noncontrast examination. Signed: Salma Frazier Verified Date/Time: 06/13/2017 12:06:05 Reading Location: [facility] C013V Neuro Reading Room CREATINE KINASE (CK), TOTAL AND [id number] 09:34:00 Test Item Value Reference Range Interpretation Comments CREATINE KINASE TOTAL (BEAKER) 85 U/L 29-200 (test code = 380) CREATINE KINASE-MB (BEAKER) (test 0.9 ng/mL 0.0-6.6 code = 750) CREATINE KINASE-MB INDEX (BEAKER) 1.1 % (test code = 395) CK-MB Reference Range:<6.7 Normal6.7-10.0 Borderline>10.0 AbnormalTROPONIN [id number] 09:34:00 Test Item Value Reference Range Interpretation Comments TROPONIN I (BEAKER) (test code = 397) < ng/mL 0.00-0.03 Troponin I (TnI) levels [...] acidosis, acute neurological disease, and persistent tachyarrhythmia.POCT-GLUCOSE [id number] 09:11:00 Test Item Value Reference Range Interpretation Comments POC-GLUCOSE METER 206 mg/dL 70-110 H TESTED AT [facility] (test code = [place] [address]) [address] LIPID [id number] 04:23:00 Test Item Value Reference Range Interpretation Comments TRIGLYCERIDES (BEAKER) (test code = 110 mg/dL 540) CHOLESTEROL (BEAKER) (test code = 137 mg/dL 631) HDL CHOLESTEROL (BEAKER) (test code 56 mg/dL = 976) LDL CHOLESTEROL CALCULATED (BEAKER) 59 mg/dL (test code = 633) Triglyceride Reference Range: Low Risk <150 Borderline 150-199 High Risk 200-499 Very High Risk >=500Cholesterol Reference Range: Low Risk <200 Borderline 200-239 High Risk >240HDL Cholesterol Reference Range: Low Risk >=60 High Risk <40LDL Cholesterol Reference Range: Optimal <100 Near Optimal 100-129 Borderline 130-159 High 160-189 Very High >=190 FastingBASIC METABOLIC [id number] 04:23:00 Test Item Value Reference Range Interpretation Comments SODIUM (BEAKER) 137 meq/L 136-145 (test code = 381) POTASSIUM (BEAKER) 4.4 meq/L 3.5-5.1 (test code = 379) CHLORIDE (BEAKER) 104 meq/L 98-107 (test code = 382) CO2 (BEAKER) (test 25 meq/L 22-29 code = 355) BLOOD UREA NITROGEN 16 mg/dL 7-21 (BEAKER) (test code = 354) CREATININE (BEAKER) 0.91 mg/dL 0.57-1.25 (test code = 358) GLUCOSE RANDOM 96 mg/dL 70-105 (BEAKER) (test code = 652) CALCIUM (BEAKER) 8.7 mg/dL 8.4-10.2 (test code = 697) EGFR (BEAKER) (test 75 mL/min/1.73 ESTIMA WILBERTO GFR IS code = 1092) sq m NOT ACCURATE CREATININE CLEARANCE IN PREDICTING GLOMERULAR FILTRATION RATE . ESTIMATED GFR I S NOT APPLICABLE FOR DIALYSIS PATIEN TS. [id number] 04:02:00 Test Item Value Reference Range Interpretation Comments RPR SCREEN (BEAKER) (test code = Nonreactive Nonreactive 420) CBC W/PLT COUNT & AUTO [id number] 03:57:00 Test Item Value Reference Range Interpretation Comments WHITE BLOOD CELL COUNT (BEAKER) 6.1 K/ L 3.5-10.5 (test code = 775) RED BLOOD CELL COUNT (BEAKER) 4.12 M/ L 3.93-5.22 (test code = 761) HEMOGLOBIN (BEAKER) (test code = 12.1 GM/DL 11.2-15.7 410) HEMATOCRIT (BEAKER) (test code = 37.2 % 34.1-44.9 411) MEAN CORPUSCULAR VOLUME (BEAKER) 90.3 fL 79.4-94.8 (test code = 753) MEAN CORPUSCULAR HEMOGLOBIN 29.4 pg 25.6-32.2 (BEAKER) (test code = 751) MEAN CORPUSCULAR HEMOGLOBIN CONC 32.5 GM/DL 32.2-35.5 (BEAKER) (test code = 752) RED CELL DISTRIBUTION WIDTH 12.9 % 11.7-14.4 (BEAKER) (test code = 412) PLATELET COUNT (BEAKER) (test 222 K/CU MM 150-450 code = 756) MEAN PLATELET VOLUME (BEAKER) 10.8 fL 9.4-12.3 (test code = 754) NUCLEATED RED BLOOD CELLS 0 /100 WBC 0-0 (BEAKER) (test code = 413) NEUTROPHILS RELATIVE PERCENT 48 % (BEAKER) (test code = 429) LYMPHOCYTES RELATIVE PERCENT 39 % (BEAKER) (test code = 430) MONOCYTES RELATIVE PERCENT 10 % (BEAKER) (test code = 431) EOSINOPHILS RELATIVE PERCENT 2 % (BEAKER) (test code = 432) BASOPHILS RELATIVE PERCENT 1 % (BEAKER) (test code = 437) NEUTROPHILS ABSOLUTE COUNT 2.91 K/ L 1.56-6.13 (BEAKER) (test code = 670) LYMPHOCYTES ABSOLUTE COUNT 2.39 K/ L 1.18-3.74 (BEAKER) (test code = 414) MONOCYTES ABSOLUTE COUNT (BEAKER) 0.63 K/ L 0.24-0.36 H (test code = 415) EOSINOPHILS ABSOLUTE COUNT 0.11 K/ L 0.04-0.36 (BEAKER) (test code = 416) BASOPHILS ABSOLUTE COUNT (BEAKER) 0.04 K/ L 0.01-0.08 (test code = 417) IMMATURE GRANULOCYTES-RELATIVE 0 % 0-1 PERCENT (BEAKER) (test code = 2801) CREATINE KINASE (CK), TOTAL AND [id number] 00:24:00 Test Item Value Reference Range Interpretation Comments CREATINE KINASE TOTAL (BEAKER) 93 U/L 29-200 (test code = 380) CREATINE KINASE-MB (BEAKER) (test 1.3 ng/mL 0.0-6.6 code = 750) CREATINE KINASE-MB INDEX (BEAKER) 1.4 % (test code = 395) CK-MB Reference Range:<6.7 Normal6.7-10.0 Borderline>10.0 AbnormalTROPONIN [id number] 00:24:00 Test Item Value Reference Range Interpretation Comments TROPONIN I (BEAKER) (test code = 0.01 ng/mL 0.00-0.03 397) Troponin I (TnI) levels must be interpreted [...] acidosis, acute neurological disease, and persistent tachyarrhythmia.HEMOGLOBIN [id number] 22:46:00 Test Item Value Reference Range Interpretation Comments HEMOGLOBIN A1C (BEAKER) (test code = 5.6 % 4.3-6.1 368) POCT-GLUCOSE [id number] 22:24:00 Test Item Value Reference Range Interpretation Comments POC-GLUCOSE METER 108 mg/dL 70-110 TESTED AT [facility] [address] (BEAKER) (test code = ANDREA [place] 1538) [address] TSH/FREE T4 IF [id number] 20:53:00 Test Item Value Reference Range Interpretation Comments THYROID STIMULATING HORMONE 1.76 uIU/mL 0.35-4.94 (BEAKER) (test code = 772) VITAMIN B12 AND [id number] 20:53:00 Test Item Value Reference Range Interpretation Comments VITAMIN B12 (BEAKER) (test code = 537 pg/mL 213-816 774) FOLATE (BEAKER) (test code = 362) 15.9 ng/mL >=7.0 URINALYSIS W/ [id number] 20:45:00 Test Item Value Reference Range Interpretation Comments COLOR (BEAKER) (test code = 470) Light Yellow CLARITY (BEAKER) (test code = Clear 469) SPECIFIC GRAVITY UA (BEAKER) 1.050 1.001-1.035 H (test code = 468) PH UA (BEAKER) (test code = 467) 5.5 5.0-8.0 PROTEIN UA (BEAKER) (test code = 10 mg/dL Negative A 464) GLUCOSE UA (BEAKER) (test code = Negative Negative 365) KETONES UA (BEAKER) (test code = Negative Negative 371) BILIRUBIN UA (BEAKER) (test code Negative Negative = 462) BLOOD UA (BEAKER) (test code = Moderate Negative A 461) NITRITE UA (BEAKER) (test code = Negative Negative 465) LEUKOCYTE ESTERASE UA (BEAKER) Moderate Negative A (test code = 466) UROBILINOGEN UA (BEAKER) (test 0.2 mg/dL 0.2-1.0 code = 463) RBC UA (BEAKER) (test code = 29 /HPF 519) WBC UA (BEAKER) (test code = 12 /HPF 520) SOURCE(BEAKER) (test code = Urine, Miguelina 7060) RAPID DRUG SCREEN, [id number] 20:18:00 Test Item Value Reference Range Interpretation Comments BARBITURATE URINE (BEAKER) (test Negative Negative code = 725) BENZODIAZEPINE SCREEN URINE (BEAKER) Negative Negative (test code = 726) COCAINE (METAB.) SCREEN (BEAKER) Negative Negative (test code = 1164) METHADONE SCREEN (BEAKER) (test code Negative Negative = 1436) OPIATE SCREEN URINE (BEAKER) (test Negative Negative code = 734) CANNABINOID SCREEN URINE (BEAKER) Negative Negative (test code = 727) AMPH/METHAMPH SCREEN (BEAKER) (test Negative Negative code = 1438) PHENCYCLIDINE SCREEN URINE (BEAKER) Negative Negative (test code = 608) OXYCODONE SCREEN URINE (BEAKER) Negative Negative (test code = 2761) DRUG CUTOFF CONC.Cocaine 300 ng/mL Cannabinoid 50 ng/mL Benzodiazepine 200 ng/mLBarbiturate 200 ng/mLPhencyclidine 25 ng/mLOpiate 300 ng/mLMethadone 300 ng/mLAmphetamine/ 1000 ng/mL MethamphetamineOxycodone 300 ng/mLThis assay provides an unconfirmed qualitative test result for the clinical management of patients in emergency situations. Chain of custody not maintained. Some vxkj-alk-idtgrri medications, as well as adulterants, may cause inaccurate results. Clinical correlation should be applied. A more comprehensive drug screen or confirmation of a detected drug may be performed upon request. HEPATIC FUNCTION [id number] 20:18:00 Test Item Value Reference Range Interpretation Comments TOTAL PROTEIN (BEAKER) (test code = 7.0 gm/dL 6.0-8.3 770) ALBUMIN (BEAKER) (test code = 1145) 4.0 g/dL 3.5-5.0 BILIRUBIN TOTAL (BEAKER) (test code 0.3 mg/dL 0.2-1.2 = 377) BILIRUBIN DIRECT (BEAKER) (test 0.2 mg/dL 0.1-0.5 code = 706) ALKALINE PHOSPHATASE (BEAKER) (test 50 U/L 40-150 code = 346) AST (SGOT) (BEAKER) (test code = 23 U/L 5-34 353) ALT (SGPT) (BEAKER) (test code = 16 U/L 6-55 347) BASIC METABOLIC [id number] 20:18:00 Test Item Value Reference Range Interpretation Comments SODIUM (BEAKER) 139 meq/L 136-145 (test code = 381) POTASSIUM (BEAKER) 4.0 meq/L 3.5-5.1 (test code = 379) CHLORIDE (BEAKER) 103 meq/L 98-107 (test code = 382) CO2 (BEAKER) (test 26 meq/L 22-29 code = 355) BLOOD UREA NITROGEN 13 mg/dL 7-21 (BEAKER) (test code = 354) CREATININE (BEAKER) 0.81 mg/dL 0.57-1.25 (test code = 358) GLUCOSE RANDOM 86 mg/dL 70-105 (BEAKER) (test code = 652) CALCIUM (BEAKER) 9.5 mg/dL 8.4-10.2 (test code = 697) EGFR (BEAKER) (test 85 mL/min/1.73 ESTIMA WILBERTO GFR IS code = 1092) sq m NOT ACCURATE CREATININE CLEARANCE IN PREDICTING GLOMERULAR FILTRATION RATE . ESTIMATED GFR I S NOT APPLICABLE FOR DIALYSIS PATIEN TS. [id number] 20:03:00 Test Item Value Reference Range Interpretation Comments PROTIME (BEAKER) (test code = 13.9 seconds 11.7-14.7 759) INR (BEAKER) (test code = 370) 1.1 <=5.9 PARTIAL THROMBOPLASTIN TIME 28.7 seconds 22.5-36.0 (BEAKER) (test code = 760) RECOMMENDED COUMADIN/WARFARIN INR THERAPY RANGESSTANDARD DOSE: 2.0 - 3.0 Includes: PROPHYLAXIS forvenous thrombosis, systemic embolization; TREATMENT for venous thrombosis and/or pulmonary embolus.HIGH RISK: Target INR is 2.5-3.5 for patients with mechanical heart valves.PROTHROMBIN [id number] 20:02:00 Test Item Value Reference Range Interpretation Comments PROTIME (BEAKER) (test code = 13.9 seconds 11.7-14.7 759) INR (BEAKER) (test code = 370) 1.1 <=5.9 RECOMMENDED COUMADIN/WARFARIN INR THERAPY RANGESSTANDARD DOSE: 2.0 - 3.0 Includes: PROPHYLAXIS forvenous thrombosis, systemic embolization; TREATMENT for venous thrombosis and/or pulmonary embolus.HIGH RISK: Target INR is 2.5-3.5 for patients with mechanical heart valves.CBC W/PLT COUNT & AUTO DIFFERENTIAL 2017-06-12 19:53:00 Test Item Value Reference Range Interpretation Comments WHITE BLOOD CELL COUNT (BEAKER) 7.0 K/ L 3.5-10.5 (test code = 775) RED BLOOD CELL COUNT (BEAKER) 4.65 M/ L 3.93-5.22 (test code = 761) HEMOGLOBIN (BEAKER) (test code = 13.7 GM/DL 11.2-15.7 410) HEMATOCRIT (BEAKER) (test code = 42.0 % 34.1-44.9 411) MEAN CORPUSCULAR VOLUME (BEAKER) 90.3 fL 79.4-94.8 (test code = 753) MEAN CORPUSCULAR HEMOGLOBIN 29.5 pg 25.6-32.2 (BEAKER) (test code = 751) MEAN CORPUSCULAR HEMOGLOBIN CONC 32.6 GM/DL 32.2-35.5 (BEAKER) (test code = 752) RED CELL DISTRIBUTION WIDTH 13.0 % 11.7-14.4 (BEAKER) (test code = 412) PLATELET COUNT (BEAKER) (test 242 K/CU MM 150-450 code = 756) MEAN PLATELET VOLUME (BEAKER) 11.0 fL 9.4-12.3 (test code = 754) NUCLEATED RED BLOOD CELLS 0 /100 WBC 0-0 (BEAKER) (test code = 413) NEUTROPHILS RELATIVE PERCENT 53 % (BEAKER) (test code = 429) LYMPHOCYTES RELATIVE PERCENT 37 % (BEAKER) (test code = 430) MONOCYTES RELATIVE PERCENT 8 % (BEAKER) (test code = 431) EOSINOPHILS RELATIVE PERCENT 1 % (BEAKER) (test code = 432) BASOPHILS RELATIVE PERCENT 0 % (BEAKER) (test code = 437) NEUTROPHILS ABSOLUTE COUNT 3.71 K/ L 1.56-6.13 (BEAKER) (test code = 670) LYMPHOCYTES ABSOLUTE COUNT 2.62 K/ L 1.18-3.74 (BEAKER) (test code = 414) MONOCYTES ABSOLUTE COUNT (BEAKER) 0.54 K/ L 0.24-0.36 H (test code = 415) EOSINOPHILS ABSOLUTE COUNT 0.10 K/ L 0.04-0.36 (BEAKER) (test code = 416) BASOPHILS ABSOLUTE COUNT (BEAKER) 0.02 K/ L 0.01-0.08 (test code = 417) IMMATURE GRANULOCYTES-RELATIVE 0 % 0-1 PERCENT (BEAKER) (test code = 2801) CT, CTANGIO [id number] 17:32:00FINAL REPORT CT angiogram of the upper [...] head. Signed: Alis Thayer Verified Date/Time: 06/12/2017 17:32:09 Reading Location: [address] Neuro Reading Room CT, CAROTID, [id number] 17:32:[address] angiogram of the upper [...] the carotid terminus branches proximally both sides. N ormal vertebrobasilar and proximal posterior cerebral artery flow. There is a prominent left posterior communicator and a somewhat small vertebrobasilar system. Impressions: Negative CTA upper chest, neck, head. Signed: lAis Thayer Verified Date/Time: 06/12/2017 17:32:09 Reading Location: [address] Neuro Reading Room [id number] 16:46:00 Test Item Value Reference Range Interpretation Comments POC-CREATININE 1.0 mg/dL 0.6-1.3 TESTED AT [facility] [address] ([facility]) (test [place]I [place] ON [place] code = 1859) [address] POC-EGFR ([facility]) 67 mL/min/1.73M2 (test code = 1860)
== END ==
LOC: ER 20:10
DX: Z02.9 Encounter for administrative examinations, unspecified (principal)